=== PATIENT | female | born 1955 | race Caucasian/White ===

== ENCOUNTER → 2016-05-08 | Outpatient (CLI) | payer OTHER ==
--- NOTE | 2016-05-08 23:25 | CONS ---
DATE OF CONSULTATION: 05/08/2016 REASON FOR CONSULTATION: Sleep apnea. Nela is 60. 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 This raises a suspicion for obstructive sleep apnea. She snores loudly. She wakes up with a dry mouth and she occasionally grinds her teeth. She goes to bed around 9 p.m., wakes up at 3 a.m. in the morning. She has to be at work at 4 a.m., as the patient works at [employer], and her work schedule is between 4 a.m. and 9 a.m. in the morning. She naps from 11 a.m. until 1 p.m. after she gets home. On weekends she sleeps between midnight and 7 to 8 a.m. in the morning. She is feeling a bit fatigued and tired and sleepy, and her [place] score is 9. No other complaints such as restlessness in the lower extremities, sleepwalking or sleeptalking. No anxiety or depression. PAST MEDICAL HISTORY: 1. Atrial fibrillation, status post successful ablation. 2. Obesity. 3. Bronchial asthma. 4. Hyperlipidemia. 5. Hypertension. 6. Fibromyalgia. 7. Nephrolithiasis. Past surgical history includes: 1. Broken right arm surgery that was repaired surgically. 2. Appendectomy. 3. Tonsillectomy. 4. D&C. 5. Tubal ligation. 6. Three laparoscopies along with hysterectomy and oophorectomy for endometriosis. 7. Two left knee arthroscopies. 8. Three colonoscopies. 9. Sinus surgery. 10. Bunion surgery involving the right foot. 11. Arthroscopic right shoulder surgery. 12. Cardiac catheterization. 13. Lithotripsy. 14. Carpal tunnel repair in both hands. 15. Lap band that resulted in a 50-pound weight loss that was all regained. 16. Hiatal hernia. 17. Cardiac ablation through catheterization and EP studies. 18. Arthroscopic right knee surgery. 19. Cholecystectomy. 20. Total left knee replacement. 21. Manipulation of the left knee. SOCIAL HISTORY: The patient is a nonsmoker. No history of alcohol. No history of IV drugs. FAMILY HISTORY: Noncontributory. Negative for obstructive sleep apnea, although other conditions such as hypertension and heart problems run in the family in addition to stroke and fibromyalgia. REVIEW OF SYSTEMS: Twelve-point review of systems was done. Positive findings were all mentioned above in the history of present illness. HER CURRENT VITALS: Her blood pressure is 148/70, pulse 58, respirations 16, temperature 98.0. Saturation 98% on room air. Weight is 206. Height is 61 inches. Neck size 14-1/2 inches. BMI is 38.9 and [place] score is 9. GENERAL APPEARANCE: Calm, comfortable. HEENT: Short neck. Crowding of posterior pharynx. No goiter or neck masses. LUNGS: Diminished; otherwise clear. HEART: Sounds are regular rate and rhythm. Normal S1, S2. No S3. No S4. No murmurs. ABDOMEN: Soft, nontender. No organomegaly. EXTREMITIES: No edema. No cyanosis or clubbing. IMPRESSION: 1. Nocturnal arrhythmias, currently under investigation. Rule out underlying obstructive sleep apnea. 2. Snoring. 3. Obesity with a body mass index of 38.9. 4. Hypersomnia with an [place] score of 9. 5. Atrial fibrillation, status post successful ablation. 6. Bronchial asthma. 7. Hyperlipidemia. 8. Hypertension. 9. Fibromyalgia. 10. Nephrolithiasis. PLAN: 1. Encourage weight loss. 2. Sleep in a sidewise body position. 3. Implement good sleep hygiene measures. 4. Proceed with a screening polysomnogram.
== END | disposition home or self-care (01) ==
LOC: SLEEP 14:15
PROVIDERS: ATTEND Internal Medicine Critical Care Medicine
DX: G47.33 Obstructive sleep apnea (adult) (pediatric) (principal); G47.10 Hypersomnia, unspecified; I49.9 Cardiac arrhythmia, unspecified; E66.9 Obesity, unspecified; Z68.38 Body mass index [BMI] 38.0-38.9, adult; I48.91 Unspecified atrial fibrillation; J45.909 Unspecified asthma, uncomplicated; E78.5 Hyperlipidemia, unspecified; I10 Essential (primary) hypertension; M79.7 Fibromyalgia; N20.0 Calculus of kidney; Z98.890 Other specified postprocedural states
CPT/HCPCS: 99211

== ENCOUNTER → 2016-08-07 | Outpatient (CLI) | payer OTHER ==
--- NOTE | 2016-08-08 09:39 | PN ---
Nela is coming in to discuss the results of the sleep study. The patient was referred to me for arrhythmias and there was suspicion for underlying sleep breathing disorder. She has some mild hypersomnia and sleepiness with an [place] score of 9. The sleep study was completed on 06/11/2016 and the results were essentially negative for sleep apnea. The patient has primary snoring without any significant obstructive apneas, or hypopneas, nor there was any significant nocturnal oxygen desaturation. The patient is not having any issues with sleep quality right now. Her cardiac rhythm is sinus. Note that she has undergone lap band back in 2009 and since then she last weight; however, she is gradually gaining it back and currently she us up to 213 pounds. Temperature 98.0, pulse 60, respiratory rate 16, height is 5, 1, weight is 213. BMI is 40, saturation 99% on room air. GENERAL APPEARANCE: Calm, comfortable. HEENT: Short neck, crowding of posterior pharynx. There is no goiter, neck masses. LUNGS: Clear to auscultation. HEART: Sounds are regular rate and rhythm. Normal S1, S2. No S3. No S4. No murmurs. ABDOMEN: Soft, nontender. No organomegaly. EXTREMITIES: No edema. No cyanosis or clubbing. IMPRESSION: 1. Primary snoring. 2. No evidence for sleep breathing disorder. 3. Obesity with a previous lap band. 4. Atrial fibrillation, status post ablation. Current rhythm is sinus. 5. Hyperlipidemia. 6. Hypertension. 7. Fibromyalgia. PLAN: 1. Encourage weight loss. 2. She will go back to her primary care physician and operations executive. No evidence of any sleep breathing disorder, no need to come back to the [facility] at this point.
== END ==
LOC: SLEEP 14:31
PROVIDERS: ATTEND Internal Medicine Critical Care Medicine
DX: R06.83 Snoring (principal); I48.91 Unspecified atrial fibrillation; E78.5 Hyperlipidemia, unspecified; I10 Essential (primary) hypertension; M79.7 Fibromyalgia

== ENCOUNTER → 2017-12-13 | Day surgery (SDC) | payer OTHER ==
[2017-12-11 14:48] VITALS: BMI 37.0
[~2017-12-13] MED LIST: GLUCAGON 1 MG/ML VIAL ONE; GLYCOPYRROLATE 0.2 MG/ML 2 ML VIAL ONE; LACTATED RINGERS 1,000 ML IV SCH; LIDOCAINE 1% 20 ML VIAL (10MG/ML) FOR IV START INTRADERMA PRN; LIDOCAINE 1% INJ 10MG/ML (20 ML MDV) ONE; PROPOFOL 10 MG/ML 20 ML VIAL IV ONE
[2017-12-13 09:48] VITALS: RESP 16; TEMP 98.3
--- NOTE | 2017-12-13 11:11 | P.GSHP ---
History of Present Illness H&P Date: 12/13/17 Chief Complaint: GI bleed This a 62-year-old female who presents today for colonoscopy. Patient was found to be fecal occult blood positive. She denies any obvious rectal bleeding. Past Medical History Past Medical History: Asthma, Fibromyalgia, GERD/Reflux, Hyperlipidemia, Osteoarthritis (OA), Thyroid Disorder Additional Past Medical History / Comment(s): hx migraines, hx heart murmur and "rapid heart rate", History of Any Multi-Drug Resistant Organisms: None Reported Past Surgical History: Appendectomy, Bariatric Surgery, Cardiac Ablation, Cholecystectomy, Heart Catheterization, Hysterectomy, Joint Replacement, Orthopedic Surgery, Tonsillectomy, Tubal Ligation Additional Past Surgical History / Comment(s): lithotripsy, lap band with hiatal hernia repair, hsemar foot surgery, rt shoulder surgery, shemar knee arthroscopy, D&C, shemar carpal tunnel, fx rt arm, oophorectomy, sinus surgery, laparoscopy x 3, left knee replaced 2014 Past Anesthesia/Blood Transfusion Reactions: Family History of Problems w/ Anesthesia, Postoperative Nausea & Vomiting (PONV) Additional Past Anesthesia/Blood Transfusion Reaction / Comment(s): happened once. mother- nausea Smoking Status: Former smoker - Past Family History Mother Family Medical History: Cancer, CVA/TIA Additional Family Medical History / Comment(s): CVA x 5 Medications and Allergies Home Medications Medication Instructions Recorded Confirmed Type ALPRAZolam [Xanax] 0.25 mg PO HS 05/28/14 12/13/17 History Atenolol [Tenormin] 50 mg PO HS 05/28/14 12/13/17 History Baclofen 5 mg PO HS 05/28/14 12/13/17 History Fluticasone/Salmeterol [Advair 1 inhalation PO DAILY PRN 05/28/14 12/13/17 History 250-50 Diskus] Ibuprofen [Motrin] 800 mg PO HS 05/28/14 12/13/17 History Melatonin 10 mg PO HS 05/28/14 12/13/17 History Atorvastatin [Lipitor] 10 mg PO DAILY 05/04/15 12/13/17 History Omeprazole [PriLOSEC] 20 mg PO HS 05/04/15 12/13/17 History Albuterol Inhaler [Ventolin Hfa 1 - 2 puff INHALATION RT-Q6H PRN 12/11/17 History Inhaler] Cetirizine HCl [Zyrtec] 5 mg PO HS 12/11/17 12/13/17 History Cholecalciferol [Vitamin D3] 5,000 unit PO DAILY 12/11/17 12/13/17 History DULoxetine HCL [Cymbalta] 60 mg PO HS 12/11/17 12/13/17 History Ferrous Sulfate [Feosol] 325 mg PO Q48H 12/11/17 12/13/17 History Levothyroxine Sodium [Levo-T] 50 mcg PO DAILY 12/11/17 12/13/17 History Allergies Allergy/AdvReac Type Severity Reaction Status Date / Time acetaminophen [From Vicodin] Allergy Nausea Verified 12/13/17 09:48 hydrocodone bitartrate Allergy Nausea Verified 12/13/17 09:48 [From Vicodin] Penicillins Allergy Rash/Hives Verified 12/13/17 09:48 metal Allergy Rash/Hives Uncoded 12/13/17 09:48 Surgical - Exam Vital Signs Temp Pulse Resp BP Pulse Ox 98.3 F 58 L 16 153/83 98 12/13/17 09:38 12/13/17 09:38 12/13/17 09:38 12/13/17 09:38 12/13/17 09:38 - General well developed, no distress - Eyes PERRL - ENT normal pinna - Neck no masses - Respiratory normal expansion - Cardiovascular Rhythm: regular - Abdomen Abdomen: soft, non tender Assessment and Plan Assessment: GI bleed. We'll perform colonoscopy.
--- NOTE | 2017-12-13 11:25 | P.OP ---
Date of Procedure: 12/13/17 Preoperative Diagnosis: GI bleed Postoperative Diagnosis: Mild diverticulosis Procedure(s) Performed: Colonoscopy Anesthesia: MAC Surgeon: Vamsi Jaimes Pathology: none sent Condition: stable Disposition: PACU Description of Procedure: The patient's placed on the endoscopy table in the lateral position area she received IV sedation. Digital rectal exam was performed which revealed no abnormalities. The flexible colonoscope was then placed patient anus passed throughout the entire colon. The ileocecal valve was visualized. The cecum, ascending and transverse colon appeared normal. In the descending; was mild diverticular changes. Scope was then brought back the rectum and this appeared normal. Scope was withdrawn for patient.
[2017-12-13 11:53] VITALS: BP 101/68; PULSE 72
== END | disposition home or self-care (01) ==
LOC: ORWHC2ENDO 09:13
PROVIDERS: ATTEND Surgery
DX: K57.30 Diverticulosis of large intestine without perforation or abscess without bleeding (principal); K92.2 Gastrointestinal hemorrhage, unspecified; M19.90 Unspecified osteoarthritis, unspecified site; M79.7 Fibromyalgia; K21.9 Gastro-esophageal reflux disease without esophagitis; J45.909 Unspecified asthma, uncomplicated; E78.5 Hyperlipidemia, unspecified; E07.9 Disorder of thyroid, unspecified; Z82.3 Family history of stroke; Z87.891 Personal history of nicotine dependence; Z88.0 Allergy status to penicillin; Z88.5 Allergy status to narcotic agent; Z98.84 Bariatric surgery status; Z90.49 Acquired absence of other specified parts of digestive tract; Z98.61 Coronary angioplasty status; Z96.652 Presence of left artificial knee joint; Z91.048 Other nonmedicinal substance allergy status; Z79.1 Long term (current) use of non-steroidal anti-inflammatories (NSAID); Z79.899 Other long term (current) drug therapy; Z79.51 Long term (current) use of inhaled steroids; Z79.890 Hormone replacement therapy
CPT/HCPCS: 45378; J1610; J2001; J2704

== ENCOUNTER → 2019-12-18 | Outpatient (CLI) | payer BC, OTHER | END | disposition home or self-care (01) | LOC: LABWHC1 13:45 | PROVIDERS: ATTEND Internal Medicine Geriatric Medicine | DX: Z20.828 Contact with and (suspected) exposure to other viral communicable diseases (principal) | CPT/HCPCS: U0003; C9803 ==

== ENCOUNTER → 2020-01-25 | Outpatient (CLI) | payer BC ==
[2020-01-25 15:15] VITALS: BP 142/85; PULSE 78; TEMP 98.2; BMI 41.3
--- NOTE | 2020-02-04 12:00 | P.HPBAR ---
Bariatric H&P - History & Physicial H&P Date: 01/25/20 History & Physicial: Visit/CC: lap band follow up Patient initial contact: Initial weight: 101.264 kg Initial weight in pounds: 223.25 Height: 5 ft Initial BMI: 43.6 Last weight: Current weight: 96.162 kg Current weight in pounds: 212.00 Current BMI: 41.3 [place] body weight (based on NIH guidelines): 45.359 kg Excess body weight loss: 9.1% The patient is a 64 year-old F who presents for Bariatric Assessment. Patient resents today for lap band follow up. She's had some complaints of abdominal pain. She relates to convert to sleeve gastrectomy. She is morbidly obese. Her BMI is 41 3 patient's had issues with dysphagia and GERD related to her LAP- BAND. Past Medical History Past Medical History: Asthma, Fibromyalgia, GERD/Reflux, Hyperlipidemia, Osteoarthritis (OA), Thyroid Disorder Additional Past Medical History / Comment(s): hx migraines, hx heart murmur and "rapid heart rate", History of Any Multi-Drug Resistant Organisms: None Reported Past Surgical History: Appendectomy, Bariatric Surgery, Cardiac Ablation, Cholecystectomy, Heart Catheterization, Hysterectomy, Joint Replacement, Orthopedic Surgery, Tonsillectomy, Tubal Ligation Additional Past Surgical History / Comment(s): lithotripsy, lap band with hiatal hernia repair, shemar foot surgery, rt shoulder surgery, shemar knee arthroscopy, D&C, shemar carpal tunnel, fx rt arm, oophorectomy, sinus surgery,laparoscopy x 3, left knee replaced 2014 Past Anesthesia/Blood Transfusion Reactions: Family History of Problems w/ Anesthesia, Postoperative Nausea & Vomiting (PONV) Additional Past Anesthesia/Blood Transfusion Reaction / Comm: happened once. mother- nausea Smoking Status: Never smoker - Past Family History Mother Family Medical History: Cancer, CVA/TIA Additional Family Medical History / Comment(s): CVA x 5 Surgical - Exam Vital Signs Temp Pulse BP 98.2 F 78 142/85 01/25/20 15:09 01/25/20 15:09 01/25/20 15:09 - General well developed, well nourished, no distress - Eyes PERRL - ENT normal pinna, normal nares - Neck no masses - Respiratory normal expansion - Cardiovascular Rhythm: regular - Abdomen Abdomen: soft, non tender Bariatric Assessment & Plan Plan: Dysphagia and GERD related to LAP-BAND. Patient will attempt to undergo insu marcela authorization to conversion to sleeve gastrectomy. He went over the risks and benefits of procedure including injury to the stomach liver spleen and issues gastric staple line disruption bleeding or scarring. Bariatric Checklist Checklist: Plan: Checklist: EGD: 1. Hiatal hernia: 2. H. Pylori: HgbA1c: Vitamin D: Smoking: Former smoker Primary care physician referral: Psychiatry clearance: Cardiology clearance: Sleep study: Diet journal: VTE risk score: VTE risk level: Rehab needs at discharge:
== END | disposition home or self-care (01) ==
LOC: BARWHC3 13:15
PROVIDERS: ATTEND Surgery
DX: Z46.51 Encounter for fitting and adjustment of gastric lap band (principal); E66.01 Morbid (severe) obesity due to excess calories; R13.10 Dysphagia, unspecified; K21.9 Gastro-esophageal reflux disease without esophagitis; Z87.891 Personal history of nicotine dependence; Z90.710 Acquired absence of both cervix and uterus; Z98.890 Other specified postprocedural states; Z90.49 Acquired absence of other specified parts of digestive tract; Z68.41 Body mass index [BMI] 40.0-44.9, adult; Z98.84 Bariatric surgery status
CPT/HCPCS: 99211

== ENCOUNTER 2020-03-24 10:29 | Day surgery (SDC) | payer BC ==
[2020-03-22 15:55] VITALS: BMI 36.8
[~2020-03-24 10:29] MED LIST changes: -GLUCAGON 1 MG/ML VIAL ONE; -GLYCOPYRROLATE 0.2 MG/ML 2 ML VIAL ONE; +LIDOCAINE 1% (10MG/ML) FOR IV START INTRADERMA PRN; -LIDOCAINE 1% 20 ML VIAL (10MG/ML) FOR IV START INTRADERMA PRN; -LIDOCAINE 1% INJ 10MG/ML (20 ML MDV) ONE; -PROPOFOL 10 MG/ML 20 ML VIAL IV ONE
[2020-03-24 11:33] VITALS: TEMP 97.1
[2020-03-24] MEDS ORDERED: fentaNYL (PF) 50 MCG/ML 2 ML AMP ONE (11:51)
[2020-03-24] MEDS ORDERED: MIDAZOLAM 2 MG/2 ML VIAL ONE (11:51)
[2020-03-24] MEDS ORDERED: PROPOFOL 10 MG/ML 20 ML VIAL IV ONE (11:51)
--- NOTE | 2020-03-24 11:56 | P.GSHP ---
History of Present Illness H&P Date: 03/24/20 Chief Complaint: GERD, history of LAP-BAND surgery 64-year-old female presents today for EGD. She's issues with GERD. She's had previous LAP-BAND surgery. She's had trouble with dysphagia and reflux. Past Medical History Past Medical History: Asthma, Fibromyalgia, GERD/Reflux, Hyperlipidemia, Osteoarthritis (OA), Thyroid Disorder Additional Past Medical History / Comment(s): hx migraines, hx heart murmur and "rapid heart rate", Degenerative Disc Disease History of Any Multi-Drug Resistant Organisms: None Reported Past Surgical History: Appendectomy, Bariatric Surgery, Cardiac Ablation, Cholecystectomy, Heart Catheterization, Hysterectomy, Joint Replacement, Orthopedic Surgery, Tonsillectomy, Tubal Ligation Additional Past Surgical History / Comment(s): lithotripsy, lap band with hiatal hernia repair, shemar foot surgery, shemar shoulder surgery, shemar knee arthroscopy, D&C, shemar carpal tunnel, fx rt arm/humurus repair, oophorectomy, sinus surgery,laparoscopy x 3, left knee replaced Past Anesthesia/Blood Transfusion Reactions: Family History of Problems w/ Anesthesia, Postoperative Nausea & Vomiting (PONV) Additional Past Anesthesia/Blood Transfusion Reaction / Comment(s): mother- nausea Past Psychological History: Anxiety Smoking Status: Former smoker Past Alcohol Use History: Rare Additional Past Alcohol Use History / Comment(s): quit smoking 1999, smoked off & on since age of 13, always <ppd Past Drug Use History: None Reported - Past Family History Mother Family Medical History: Cancer, CVA/TIA Additional Family Medical History / Comment(s): CVA x 5 Medications and Allergies Home Medications Medication Instructions Recorded Confirmed Type ALPRAZolam [Xanax] 0.25 mg PO HS 05/28/14 03/22/20 History Atenolol [Tenormin] 75 mg PO HS 05/28/14 03/22/20 History Baclofen 10 mg PO QAM 05/28/14 03/22/20 History Fluticasone/Salmeterol [Advair 1 inhalation PO DAILY PRN 05/28/14 03/22/20 History 250-50 Diskus] Ibuprofen [Motrin] 800 mg PO HS 05/28/14 03/22/20 History Melatonin 10 mg PO HS 05/28/14 03/22/20 History Atorvastatin [Lipitor] 10 mg PO DAILY 05/04/15 03/22/20 History Albuterol Inhaler (Mhu) [Ventolin 1 - 2 puff INHALATION RT-Q6H PRN 12/11/17 03/22/20 History Hfa Inhaler] Cetirizine HCl [Zyrtec] 5 mg PO HS 12/11/17 03/22/20 History Cholecalciferol [Vitamin D3] 5,000 unit PO DAILY 12/11/17 03/22/20 History DULoxetine HCL [Cymbalta] 60 mg PO HS 12/11/17 03/22/20 History Levothyroxine Sodium [Levo-T] 50 mcg PO QAM 12/11/17 03/22/20 History Baclofen [Lioresal] 20 mg PO HS 03/22/20 03/22/20 History Pyridoxine [Vitamin B-6] 50 mg PO DAILY 03/22/20 03/22/20 History Allergies Allergy/AdvReac Type Severity Reaction Status Date / Time hydrocodone bitartrate Allergy Nausea Verified 03/22/20 15:45 [From Vicodin] Penicillins Allergy Anaphylaxis Verified 03/22/20 15:45 metal Allergy Rash/Hives Uncoded 03/22/20 15:45 Surgical - Exam Vital Signs Temp Pulse Resp BP Pulse Ox 97.1 F L 66 20 143/79 95 03/24/20 11:15 03/24/20 11:15 03/24/20 11:15 03/24/20 11:15 03/24/20 11:15 - General well developed, well nourished, no distress - Eyes PERRL - ENT normal pinna - Neck no masses - Respiratory normal expansion - Cardiovascular Rhythm: regular - Abdomen Abdomen: soft, non tender Assessment and Plan Assessment: GERD, dysphagia. We'll perform EGD.
--- NOTE | 2020-03-24 12:02 | P.OP ---
Date of Procedure: 03/24/20 Preoperative Diagnosis: GERD Postoperative Diagnosis: Antral gastritis LAP-BAND without evidence of erosion or inflammation Esophagitis Procedure(s) Performed: EGD Anesthesia: MAC Surgeon: Vamsi Jaimes Pathology: other (Antrum, esophagus) Condition: stable Disposition: PACU Description of Procedure: The patient's placed on the endoscopy table in the lateral position. She received IV sedation. The gastro-/oropharynx passed in the esophagus and stomach. The scope was then placed through the pylorus. The first and second portion of the duodenum appeared normal. Scope summer back and the antrum this appeared mildly inflamed. A biopsies performed. Scope was then retroflexed and the remainder of the stomach appeared normal. The patient a previous placed LAP-BAND which was without evidence insufflation erosion. The GE junction was at 40 cm.. The distal esophagus appeared minimally inflamed. A biopsies performed. The proximal esophagus appeared normal. Scope was withdrawn for patient.
[2020-03-24 12:15] VITALS: RESP 16
[2020-03-24 12:34] VITALS: BP 125/72; PULSE 61
== END 2020-03-24 13:14 | disposition home or self-care (01) ==
LOC: ORWHC2ENDO 10:29
PROVIDERS: ATTEND Surgery
DX: K29.50 Unspecified chronic gastritis without bleeding (principal); B96.81 Helicobacter pylori [H. pylori] as the cause of diseases classified elsewhere; K21.00 Gastro-esophageal reflux disease with esophagitis, without bleeding; E78.5 Hyperlipidemia, unspecified; J45.909 Unspecified asthma, uncomplicated; E07.9 Disorder of thyroid, unspecified; M79.7 Fibromyalgia; M19.90 Unspecified osteoarthritis, unspecified site; G43.909 Migraine, unspecified, not intractable, without status migrainosus; F41.9 Anxiety disorder, unspecified; Z88.0 Allergy status to penicillin; Z88.5 Allergy status to narcotic agent; Z79.1 Long term (current) use of non-steroidal anti-inflammatories (NSAID); Z79.51 Long term (current) use of inhaled steroids; Z79.890 Hormone replacement therapy; Z79.899 Other long term (current) drug therapy; Z87.891 Personal history of nicotine dependence; Z98.84 Bariatric surgery status; Z90.710 Acquired absence of both cervix and uterus; Z98.51 Tubal ligation status; Z98.890 Other specified postprocedural states; Z90.722 Acquired absence of ovaries, bilateral; Z96.652 Presence of left artificial knee joint; Z90.49 Acquired absence of other specified parts of digestive tract; Z82.49 Family history of ischemic heart disease and other diseases of the circulatory system; Z80.9 Family history of malignant neoplasm, unspecified
CPT/HCPCS: 88305; 88342; 43239; J2250; J3010; J2704

== ENCOUNTER → 2020-04-04 | Outpatient (CLI) | payer BC, MEDICARE ==
[2020-04-04 13:28] VITALS: BP 131/84; PULSE 82; RESP 18; TEMP 97.7; BMI 42.3
--- NOTE | 2020-04-04 14:47 | P.HPBAR ---
Bariatric H&P - History & Physicial H&P Date: 04/04/20 History & Physicial: Visit/CC: follow up Patient initial contact: Initial weight: 101.264 kg Initial weight in pounds: 223.25 Height: 5 ft 0.5 in Initial BMI: 42.8 Last weight: Current weight: 99.79 kg Current weight in pounds: 220.00 Current BMI: 42.3 [place] body weight (based on NIH guidelines): 46.493 kg Excess body weight loss: 2.6% The patient is a 64 year-old F who presents for Bariatric Assessment. Patient presents today for lab band follow up. She's had trouble with dysphagia in her band band was adjusted. She wishes to convert to sleeve gastrectomy. She's had issues with GERD. Past Medical History Past Medical History: Asthma, Fibromyalgia, GERD/Reflux, Hyperlipidemia, Osteoarthritis (OA), Thyroid Disorder Additional Past Medical History / Comment(s): hx migraines, hx heart murmur and "rapid heart rate", Degenerative Disc Disease History of Any Multi-Drug Resistant Organisms: None Reported Past Surgical History: Appendectomy, Bariatric Surgery, Cardiac Ablation, Cholecystectomy, Heart Catheterization, Hysterectomy, Joint Replacement, Orthopedic Surgery, Tonsillectomy, Tubal Ligation Additional Past Surgical History / Comment(s): lithotripsy, lap band with hiatal hernia repair, shemar foot surgery, shemar shoulder surgery, shemar knee arthroscopy, D&C, shemar carpal tunnel, fx rt arm/humurus repair, oophorectomy, sinus surgery,laparoscopy x 3, left knee replaced Past Anesthesia/Blood Transfusion Reactions: Family History of Problems w/ An esthesia, Postoperative Nausea & Vomiting (PONV) Additional Past Anesthesia/Blood Transfusion Reaction / Comm: mother- nausea Past Psychological History: Anxiety Smoking Status: Former smoker Past Alcohol Use History: Rare Additional Past Alcohol Use History / Comment(s): quit smoking 1999, smoked off & on since age of 13, always <ppd Past Drug Use History: None Reported - Past Family History Mother Family Medical History: Cancer, CVA/TIA Additional Family Medical History / Comment(s): CVA x 5 Surgical - Exam Vital Signs Temp Pulse Resp BP 97.7 F 82 18 131/84 04/04/20 13:15 04/04/20 13:15 04/04/20 13:15 04/04/20 13:15 - General well developed, well nourished, no distress - Eyes PERRL - ENT normal pinna - Neck no masses - Respiratory normal expansion - Cardiovascular Rhythm: regular - Abdomen Abdomen: soft, non tender Bariatric Assessment & Plan Plan: Dysphagia, GERD related to LAP-BAND. Patient will be converted to sleeve gastrectomy 1 insurance authorization is complete. Bariatric Checklist Checklist: Plan: Checklist: EGD: 1. Hiatal hernia: 2. H. Pylori: HgbA1c: Vitamin D: Smoking: Former smoker Primary care physician referral: Dr. Marcus Psychiatry clearance: Cardiology clearance: Sleep study: Diet journal: VTE risk score: VTE risk level: Rehab needs at discharge:
== END | disposition home or self-care (01) ==
LOC: BARWHC3 13:01
PROVIDERS: ATTEND Surgery
DX: Z46.51 Encounter for fitting and adjustment of gastric lap band (principal); K21.9 Gastro-esophageal reflux disease without esophagitis; R13.10 Dysphagia, unspecified; Z98.84 Bariatric surgery status; Z90.49 Acquired absence of other specified parts of digestive tract; Z90.710 Acquired absence of both cervix and uterus; Z98.890 Other specified postprocedural states
CPT/HCPCS: 99211

== ENCOUNTER → 2020-05-23 | Outpatient (CLI) | payer MEDICARE ==
[2020-05-23 15:23] VITALS: BP 137/84; PULSE 67; TEMP 97.9; BMI 43.2
--- NOTE | 2020-05-23 16:22 | P.HPBAR ---
Bariatric H&P - History & Physicial H&P Date: 05/23/20 History & Physicial: Visit/CC: presurgical visit Patient initial contact: Initial weight: 101.264 kg Initial weight in pounds: 223.25 Height: 5 ft 0.5 in Initial BMI: 42.8 Last weight: Current weight: 102.058 kg Current weight in pounds: 225.00 Current BMI: 43.2 [place] body weight (based on NIH guidelines): 46.493 kg Excess body weight loss: The patient is a 64 year-old F who presents for Bariatric Assessment. Patient presents today for presurgical visit. She is scheduled for sleeve gastrectomy June 06. She will have her band removed at time. She's had chronic issues with GERD and dysphagia. Past Medical History Past Medical History: Asthma, Fibromyalgia, GERD/Reflux, Hyperlipidemia, Osteoarthritis (OA), Thyroid Disorder Additional Past Medical History / Comment(s): hx migraines, hx heart murmur and "rapid heart rate", Degenerative Disc Disease History of Any Multi-Drug Resistant Organisms: None Reported Past Surgical History: Appendectomy, Bariatric Surgery, Cardiac Ablation, Cholecystectomy, Heart Catheterization, Hysterectomy, Joint Replacement, Orthopedic Surgery, Tonsillectomy, Tubal Ligation Additional Past Surgical History / Comment(s): lithotripsy, lap band with hiatal hernia repair, shemar foot surgery, shemar shoulder surgery, shemar knee arthroscopy, D&C, shemar carpal tunnel, fx rt arm/humurus repair, oophorectomy, sinus surgery,laparoscopy x 3, left knee replaced Past Anesthesia/Blood Transfusion Reactions: Family History of Problems w/ Anesthesia, Postoperative Nausea & Vomiting (PONV) Additional Past Anesthesia/Blood Transfusion Reaction / Comm: mother- nausea Smoking Status: Former smoker - Past Family History Mother Family Medical History: Cancer, CVA/TIA Additional Family Medical History / Comment(s): CVA x 5 Surgical - Exam Vital Signs Temp Pulse BP 97.9 F 67 137/84 05/23/20 15:20 05/23/20 15:20 05/23/20 15:20 - General well developed, well nourished, no distress - Eyes PERRL - ENT normal pinna - Neck no masses - Respiratory normal expansion - Cardiovascular Rhythm: regular - Abdomen Abdomen: soft, non tender Bariatric Assessment & Plan Plan: Status post LAP-BAND procedure with subsequent GERD and dysphagia. Patient will undergo conversion sleeve gastrectomy. Bariatric Checklist Checklist: Plan: Checklist: EGD: 1. Hiatal hernia: 2. H. Pylori: HgbA1c: Vitamin D: Smoking: Former smoker Primary care physician referral: Dr. Marcus Psychiatry clearance: Cardiology clearance: Sleep study: Diet journal: VTE risk score: VTE risk level: Rehab needs at discharge:
== END ==
LOC: BARWHC3 13:33
PROVIDERS: ATTEND Surgery
DX: Z01.818 Encounter for other preprocedural examination (principal); J45.909 Unspecified asthma, uncomplicated; E78.5 Hyperlipidemia, unspecified; M19.90 Unspecified osteoarthritis, unspecified site; K21.9 Gastro-esophageal reflux disease without esophagitis; R13.10 Dysphagia, unspecified; Z98.84 Bariatric surgery status; Z87.891 Personal history of nicotine dependence
CPT/HCPCS: 99211

== ENCOUNTER → 2020-05-23 | Outpatient (CLI) | payer MEDICARE | END | disposition home or self-care (01) | LOC: LABPAT 14:34 | PROVIDERS: ATTEND Surgery | DX: Z01.818 Encounter for other preprocedural examination (principal) | CPT/HCPCS: 93005 ==

== ENCOUNTER 2020-06-06 07:40 | Inpatient (IN) | payer MEDICARE ==
[~2020-06-06 07:40] MED LIST changes: +CLINDAMYCIN 900 MG in DEXTROSE 5% IN WATER 50 ML IVPB PRN; +DEXAMETHASONE SOD PHOSPHATE 4 MG/ML 1 ML VIAL IV ONE; +ENOXAPARIN 40 MG/0.4 ML SYRINGE SQ PRN; +GENTAMICIN 340 MG in SODIUM CHLORIDE 0.9% 100 ML IVPB PRN; -LACTATED RINGERS 1,000 ML IV SCH; -LIDOCAINE 1% (10MG/ML) FOR IV START INTRADERMA PRN; +ONDANSETRON 4 MG/2 ML VIAL IVP ONE
[2020-06-06] MEDS: LACTATED RINGERS 1,000 ML IV SCH (09:00)
[2020-06-06] MEDS ORDERED: LIDOCAINE 1% INJ 10MG/ML (20 ML MDV) ONE ×2 (09:01→10:50)
[2020-06-06 09:20] LABS: Basophils % (A) 1 %; Eosinophils # (A) 0.1 k/uL (0-0.7); Eosinophils % (A) 2 %; HCT 41.6 % (34.0-46.0); HGB 14.2 gm/dL (11.4-16.0); Lymphocytes % (A) 25 %; MCH 29.3 pg (25.0-35.0); MCHC 34.1 g/dL (31.0-37.0); MCV 85.7 fL (80.0-100.0); Mean Platelet Volume 7.4; Monocytes # (A) 0.6 k/uL (0-1.0); Monocytes % (A) 8 %; Neutrophils # (A) 4.9 k/uL (1.3-7.7); Neutrophils % (A) 63 %; Platelet Count 339 k/uL (150-450); RBC 4.86 m/uL (3.80-5.40); RDW 13.8 % (11.5-15.5); WBC 7.8 k/uL (3.8-10.6)
[2020-06-06] MEDS ORDERED: MIDAZOLAM 2 MG/2 ML VIAL IVP ONE (09:29)
--- NOTE | 2020-06-06 10:17 | P.GSHP ---
History of Present Illness H&P Date: 06/06/20 Chief Complaint: GERD, dysphagia This is a 64-year-old female who presents today for laparoscopic removal of LAP- BAND system and laparoscopic sleeve gastrectomy. She's had chronic GERD and dysphagia related to her LAP-BAND. Past Medical History Past Medical History: Asthma, Fibromyalgia, GERD/Reflux, Hyperlipidemia, Osteoarthritis (OA), Supraventricular Tachycardia (SVT), Thyroid Disorder Additional Past Medical History / Comment(s): hx migraines, hx heart murmur and "rapid heart rate", Degenerative Disc Disease, back pain, lap band History of Any Multi-Drug Resistant Organisms: None Reported Past Surgical History: Appendectomy, Bariatric Surgery, Cardiac Ablation, Cholecystectomy, Heart Catheterization, Hysterectomy, Joint Replacement, Orthopedic Surgery, Tonsillectomy, Tubal Ligation Additional Past Surgical History / Comment(s): lithotripsy, lap band with hiatal hernia repair, shemar foot surgery, shemar shoulder surgery, shemar knee arthroscopy, D&C, shemar carpal tunnel, fx rt arm/humurus repair, oophorectomy, sinus surgery, laparoscopy x 3, left knee replaced Past Anesthesia/Blood Transfusion Reactions: Family History of Problems w/ Anesthesia, Postoperative Nausea & Vomiting (PONV) Additional Past Anesthesia/Blood Transfusion Reaction / Comment(s): mother- nausea Smoking Status: Former smoker - Past Family History Mother Family Medical History: Cancer, CVA/TIA Additional Family Medical History / Comment(s): CVA x 5 Medications and Allergies Home Medications Medication Instructions Recorded Confirmed Type ALPRAZolam [Xanax] 0.25 mg PO HS PRN 05/28/14 06/06/20 History Atenolol [Tenormin] 75 mg PO HS 05/28/14 06/06/20 History Fluticasone/Salmeterol [Advair 1 inhalation PO DAILY PRN 05/28/14 06/06/20 Hi story 250-50 Diskus] Ibuprofen [Motrin] 800 mg PO HS 05/28/14 06/06/20 History Atorvastatin [Lipitor] 10 mg PO DAILY 05/04/15 06/06/20 History Albuterol Inhaler (Mhu) [Ventolin 1 - 2 puff INHALATION RT-Q6H PRN 12/11/17 06/06/20 History Hfa Inhaler] Cetirizine HCl [Zyrtec] 5 mg PO HS 10/10/18 04/05/21 History Cholecalciferol [Vitamin D3] 5,000 unit PO DAILY 12/11/17 06/06/20 History DULoxetine HCL [Cymbalta] 60 mg PO HS 12/11/17 06/06/20 History Levothyroxine Sodium [Levo-T] 75 mcg PO QAM 12/11/17 06/06/20 History Baclofen [Lioresal] 10 mg PO TID 03/22/20 06/06/20 History Pyridoxine [Vitamin B-6] 50 mg PO DAILY 03/22/20 06/06/20 History Acetaminophen-Codeine 300-30mg 1 tab PO Q6H 05/30/20 06/06/20 History [Tylenol w/codeine #3] Cyanocobalamin (Vitamin B-12) 1,000 mcg PO DAILY 05/30/20 06/06/20 History [Vitamin B-12] Fenofibrate Nanocrystallized 145 mg PO DAILY 05/30/20 06/06/20 History [Fenofibrate] Loperamide HCl [Imodium A-D] 2 mg PO DAILY PRN 05/30/20 06/06/20 History Melatonin 10 mg PO HS 05/30/20 06/06/20 History Omeprazole 20 mg PO DAILY 05/30/20 06/06/20 History Ondansetron HCl [Zofran] 4 mg PO Q8H PRN 05/30/20 06/06/20 History Temazepam [Restoril] 15 mg PO HS 06/03/20 06/06/20 History Allergies Allergy/AdvReac Type Severity Reaction Status Date / Time hydrocodone bitartrate Allergy Nausea Verified 06/06/20 09:07 [From Vicodin] Penicillins Allergy Anaphylaxis Verified 06/06/20 09:07 metal Allergy Rash/Hives Uncoded 06/06/20 09:07 Surgical - Exam Vital Signs Temp Pulse Resp BP Pulse Ox 98.1 F 57 L 17 133/74 98 06/06/20 09:00 06/06/20 09:00 06/06/20 09:00 06/06/20 09:00 06/06/20 09:00 - General well developed, well nourished, no distress - Eyes PERRL - ENT normal pinna - Neck no masses - Respiratory normal expansion - Cardiovascular Rhythm: regular - Abdomen Abdomen: soft, non tender Results - Labs 06/06/20 09:01 Assessment and Plan Assessment: GERD, dysphagia. We'll perform we'll LAP-BAND system and conversion to sleeve gastrectomy.
[2020-06-06] MEDS ORDERED: KETOROLAC 15 MG/ML 1 ML VIAL ONE (10:50)
[2020-06-06] MEDS ORDERED: PROPOFOL 10 MG/ML 20 ML VIAL IV ONE (10:50)
[2020-06-06] MEDS ORDERED: GLYCOPYRROLATE 0.2 MG/ML 2 ML VIAL ONE (10:50)
[2020-06-06] MEDS ORDERED: ROCURONIUM 10 MG/ML (5 ML VIAL) IV ONE (10:50)
[2020-06-06] MEDS ORDERED: fentaNYL (PF) 50 MCG/ML 2 ML AMP ONE (10:50)
[2020-06-06] MEDS ORDERED: KETAMINE 10 MG/ML 20 ML VIAL ONE (10:50)
[2020-06-06] MEDS ORDERED: ROPIVACAINE 5 MG/ML 30 ML VIAL ONE (10:50)
[2020-06-06] MEDS ORDERED: NEOSTIGMINE 1 MG/ML 10 ML VIAL ONE (10:50)
[2020-06-06] MEDS ORDERED: SUCCINYLCHOLINE CHLORIDE 100 MG/5 ML SYR IV ONE (10:50)
[2020-06-06] MEDS ORDERED: BUPIVACAINE (PF) 0.25% 30 ML VIAL SQ ONE (11:21)
[2020-06-06] MEDS ORDERED: HYDROmorphone 1 MG/ML 1 ML SYRINGE IVP PRN (12:20)
[2020-06-06] MEDS ORDERED: ONDANSETRON 4 MG/2 ML VIAL IVP PRN (12:20)
[2020-06-06] MEDS ORDERED: HYDROcodone/APAP 15 ML SOLUTION PO PRN (12:20)
[2020-06-06] MEDS ORDERED: HYOSCYAMINE ORAL DROPS 1.875 MG/15 ML BOTTLE PO PRN (12:20)
[2020-06-06] MEDS ORDERED: SIMETHICONE 40 MG/0.6 ML DROPS 2,000 MG/30 ML BOTTLE PO PRN (12:20)
[2020-06-06] MEDS ORDERED: diphenhydrAMINE 50 MG/ML 1 ML VIAL IVP PRN (12:20)
[2020-06-06] MEDS ORDERED: NALOXONE 0.4 MG/ML 1 ML VIAL IV PRN (12:20)
--- NOTE | 2020-06-06 12:26 | P.OP ---
Date of Procedure: 06/06/20 Preoperative Diagnosis: Dysphagia Morbid obesity, BMI 42 Postoperative Diagnosis: Dysphagia Morbid obesity, BMI 42 Procedure(s) Performed: Removal LAP-BAND system Laparoscopic sleeve gastrectomy Anesthesia: ZA Surgeon: Vamsi Jaimes Estimated Blood Loss (ml): 25 Pathology: other (Stomach) Condition: stable Disposition: PACU Description of Procedure: The patient was placed on the operating room table in the supine position. She received general anesthesia and then was placed in dorsal lithotomy position. Her abdomen was prepped and draped in sterile fashion. The skin incision sites were anesthetized 1% local Xylocaine. And then the skin was incised with an 11 blade in the left lateral position. Using a blade less trocar under direct visualization the peritoneal cavity was entered. The abdomen was insufflated and then a 5 mm laparoscope was placed into the peritoneal cavity. A 5 mm trocar was placed in the right epigastric, and right lateral position. A 15 mm trocar was placed in the supra-umbilical position and another 5 mm trocar was placed in the left lateral position. The left lateral lobe of the liver was retracted. The LAP-BAND port was then palpated and skin incision made over the port site. And then using left cautery the LAP-BAND port was dissected free to the pathology. The connecting tube was then cut. Next the anterior gastric wall plication was taken down and the LAP-BAND device was freed from and stomach. The LAP-BAND device was cut withdrawn from the stomach. It was extracted through the 15 mm port site. The stomach was visualized. The greater curvature of the stomach was then dissected using the Harmonic scissors. The dissection occurred approximately 5 cm from the pylorus to the level of the left payton. There was no hiatal hernia seen. At this point a 40-Citizen Of [place] bougie dilator was placed the oropharynx and passed into the esophagus and into the stomach by the GLASS DEPOSITION TENDER. The sleeve gastrectomy was performed by using the powered echelon stapler with a seam guard buttress material. Sequential firings of the stapler were performed. The gastric remnant was then brought out through the 15 mm trocar site. The dilator was withdrawn. And a orogastric tube was replaced into the stomach. The stomach was insufflated with 200 mL of methylene blue normal saline. There was no evidence of extravasation. The abdomen was irrigated there is no bleeding seen. The Cameron-Samara device was used to close the 15 mm trocar with 0 Vicryl. Skin was closed with interrupted 3-0 Monocryl sutures once the trochars withdrawn. Dermabond dressing was applied. Patient was sent to recovery in stable condition.
[2020-06-06] MEDS ORDERED: LACTATED RINGERS 1,000 ML IV ONE (12:35)
[2020-06-06] MEDS: HYDROmorphone 0.5 MG/0.5 ML SYRINGE IVP PRN ×3 (13:17→14:01)
[2020-06-06 13:50] LABS: Albumin 3.7 g/dL (3.5-5.0); Calcium 9.7 mg/dL (8.4-10.2); Potassium 4.4 mmol/L (3.5-5.1); Total Bilirubin 0.4 mg/dL (0.2-1.3); Total Protein 6.5 g/dL (6.3-8.2)
--- NOTE | 2020-06-06 14:21 | P.ANPRN ---
Procedure Note - Anesthesia - Nerve Block Performed Bilateral Erector Spinae Single Time Out Performed: Yes Date of Procedure: 06/06/20 Procedure Start Time: :28 Procedure Stop Time: :35 Location of Patient: PreOp Indication: Acute Post-Operative Pain, Requested by Surgeon Sedation Type: Sedate with meaningful contact maintained Preparation: Sterile Prep Position: Prone Needle Types: Pajunk Needle Gauge: 21 Ultrasound used to visualize needle placement: Yes Ultrasound used to observe medication spread: Yes Blood Aspirated: No Pain Paresthesia on Injection Noted: No Resistance on Injection: Normal Image Stored and Saved: Yes Events: Uneventful and Well Tolerated (ropi .5% 15cc plus xylo 1% 15cc at t10 bilaterally)
--- NOTE | 2020-06-06 14:23 | P.ANPRN ---
Procedure Note - Anesthesia - Nerve Block Performed Bilateral Erector Spinae Single Time Out Performed: Yes Date of Procedure: 06/06/20 Procedure Start Time: 10:32 Procedure Stop Time: 10:39 Location of Patient: PreOp Indication: Acute Post-Operative Pain, Requested by Surgeon Sedation Type: Sedate with meaningful contact maintained Preparation: Sterile Prep Position: Prone Needle Types: Pajunk Needle Gauge: 21 Ultrasound used to visualize needle placement: Yes Ultrasound used to observe medication spread: Yes Blood Aspirated: No Pain Paresthesia on Injection Noted: No Resistance on Injection: Normal Image Stored and Saved: Yes Events: Uneventful and Well Tolerated (ropi .5% 15cc plus xylo 1% 15cc at t10 bilaterally)
[2020-06-06] MEDS: ALBUTEROL NEBULIZED 2.5 MG/3 ML INHALATION SCH ×2 (15:19→19:01)
[2020-06-06] MEDS ORDERED: ALPRAZolam 0.25 MG TAB PO PRN (15:47)
[2020-06-06] MEDS ORDERED: ALBUTEROL NEBULIZED 2.5 MG/3 ML INHALATION PRN (17:37)
[2020-06-06] MEDS ORDERED: SYMBICORT 80-4.5 MCG INHALER INHALATION PRN (17:37)
[2020-06-06] MEDS ORDERED: ONDANSETRON 4 MG TAB PO PRN (17:37)
[2020-06-06] MEDS ORDERED: LOPERAMIDE 2 MG CAP PO PRN (17:37)
--- NOTE | 2020-06-06 17:37 | P.CONS ---
History of Present Illness - Reason for Consult Consult date: 06/06/20 Medical management Requesting physician: Vamsi Jaimes - Chief Complaint Post gastric sleeve - History of Present Illness HISTORY OF PRESENT ILLNESS: 63-year-old female one of my office patient of known for the last 20 some years with history of asthma, obesity, fibromyalgia, hyperlipidemia, borderline diabetes, supraventricular tachycardia and severe lower back pain who had lap band use ago had lost quite bed rate from it originally and then quit working. Patient has not seen her surgeon for it for long time. Patient had a struggle quite bed with weight gain lately along with comorbidity related to. Was seen Dr. Jaimes and scheduled for elective gastric sleeve which was done today successfully with no major complication. Patient is resting in her bed comfortably having slight distention with mild abdominal pain otherwise not s ymptomatic no nausea or vomiting. We'll resume home meds start patient on DVT, GI and pulmonary prophylaxis. REVIEW OF SYSTEMS: Constitutional: No fever, no chills, no night sweats. No weight change. No weakness, fatigue or lethargy. No daytime sleepiness. EENT: No headache. No blurred vision or double vision, no loss of vision. No loss of Hearing, no ringing in the ears, no dizziness. No nasal drainage or congestion. No epistaxis. No sore throat. Lungs: No shortness of breath, cough, no sputum production. No wheezing. Cardiovascular: No chest pain, no lower extremity edema. No palpitations. No paroxysmal nocturnal dyspnea. No orthopnea. No lightheadedness or dizziness. No syncopal episodes. Abdominal: No abdominal pain. No nausea, vomiting. No diarrhea. No constipation. No bloody or tarry stools.. No loss of appetite. Genitourinary: No dysuria, increased frequency, urgency. No urinary retention. Musculoskeletal: No myalgias. No muscle weakness, no gait dysfunction, no frequent falls. No back pain. No neck pain. Integumentary: No wounds, no lesions. No rash or pruritus. No unusual bruising. No change in hair or nails. Neurologic: No aphasia. No facial droop. No change in mentation. No head injury. No headache. No paralysis. No paresthesia. Psychiatric: No depression. No anxiety. No mood swings. Endocrine: No abnormal blood sugars. No weight change. No excessive sweating or thirst. No cold intolerance. SOCIAL HISTORY: She quit smoking in 2019 smoking half to 1 pack a day for 20 years. No ankle abuse no legal or illegal marijuana use, she does not use any CPAP or oxygen at home she is and lives with her . FAMILY HISTORY: Positive for CVA, CAD, diabetes and cancer. PHYSICAL EXAMINATION: Gen: This is a 64-year-old will be given obese female laying in bed comfortably she is not in any distress. HEENT: Head is atraumatic, normocephalic. Pupils equal, round. Sclerae is anicteric. NECK: Supple. No JVD. No lymphadenopathy. No thyromegaly. LUNGS: Clear to auscultation. No wheezes or rhonchi. No intercostal retract ions. HEART: Regular rate and rhythm. No murmur. ABDOMEN: Soft. Bowel sounds are present. No masses. No tenderness. Incision from her surgery all looks fine with no hemorrhage or bleeding. EXTREMITIES: No pedal edema. No calf tenderness. NEUROLOGICAL: Patient is awake, alert and oriented x3. Cranial nerves 2 through 12 are grossly intact. ASSESSMENT AND PLAN: 1. Post gastric sleeve: Continue home meds continue to watch for any complication watch patient without status control pain incentive spirometry and DVT prophylaxis protocol be use.. 2. History of asthma: Patient has been doing well continue Ventolin nebulizer resume her home Advair. 3. Hypothyroidism: Resume levothyroxine at 75 g daily.. 4. Severe GERD and had a hernia: Patient has been on Protonix and PPI for long time.. 5. Hyperlipidemia: Resume atorvastatin 10 mg daily, along with fenofibrate 145 mg a day. 6. Hypertension: Continue Tenormin 75 mg daily at bedtime.. 7. Depression: Continue duloxetine 60 mg a day. 8. Lower back pain: With recent skeletal muscular discomfort, patient was on Decadron along with Tylenol No. 3 and baclofen an as-needed basis.. 9. GI prophylaxis: Continue pantoprazole. 10. DVT prophylaxis: Continue Lovenox daily. CODE STATUS: Full code Dr. Jaimes thank you much for the consult if I can be any further help to please let me know. Past Medical History Past Medical History: Asthma, Fibromyalgia, GERD/Reflux, Hyperlipidemia, Osteoarthritis (OA), Supraventricular Tachycardia (SVT), Thyroid Disorder Additional Past Medical History / Comment(s): hx migraines, hx heart murmur and "rapid heart rate", Degenerative Disc Disease, back pain, lap band History of Any Multi-Drug Resistant Organisms: None Reported Past Surgical History: Appendectomy, Bariatric Surgery, Cardiac Ablation, Cholecystectomy, Heart Catheterization, Hysterectomy, Joint Replacement, Orthopedic Surgery, Tonsillectomy, Tubal Ligation Additional Past Surgical History / Comment(s): lithotripsy, lap band with hiatal hernia repair, shemar foot surgery, shemar shoulder surgery, shemar knee arthroscopy, D&C, shemar carpal tunnel, fx rt arm/humurus repair, oophorectomy, sinus surgery,laparoscopy x 3, left knee replaced Past Anesthesia/Blood Transfusion Reactions: Family History of Problems w/ Anesthesia, Postoperative Nausea & Vomiting (PONV) Additional Past Anesthesia/Blood Transfusion Reaction / Comm: mother- nausea Smoking Status: Former smoker - Past Family History Mother Family Medical History: Cancer, CVA/TIA Additional Family Medical History / Comment(s): CVA x 5 Medications and Allergies Home Medications Medication Instructions Recorded Confirmed Type ALPRAZolam [Xanax] 0.25 mg PO HS PRN 05/28/14 06/06/20 History Atenolol [Tenormin] 75 mg PO HS 05/28/14 06/06/20 History Fluticasone/Salmeterol [Advair 1 inhalation PO DAILY PRN 05/28/14 06/06/20 History 250-50 Diskus] Ibuprofen [Motrin] 800 mg PO HS 05/28/14 06/06/20 History Atorvastatin [Lipitor] 10 mg PO DAILY 05/04/15 06/06/20 History Albuterol Inhaler (Mhu) [Ventolin 1 - 2 puff INHALATION RT-Q6H PRN 12/11/17 06/06/20 History Hfa Inhaler] Cetirizine HCl [Zyrtec] 5 mg PO HS 12/11/17 06/06/20 History Cholecalciferol [Vitamin D3] 5,000 unit PO DAILY 12/11/17 06/06/20 History DULoxetine HCL [Cymbalta] 60 mg PO HS 12/11/17 06/06/20 History Levothyroxine Sodium [Levo-T] 75 mcg PO QAM 12/11/17 06/06/20 History Baclofen [Lioresal] 10 mg PO TID 03/22/20 06/06/20 History Pyridoxine [Vitamin B-6] 50 mg PO DAILY 03/22/20 06/06/20 History Acetaminophen-Codeine 300-30mg 1 tab PO Q6H 05/30/20 06/06/20 History [Tylenol w/codeine #3] Cyanocobalamin (Vitamin B-12) 1,000 mcg PO DAILY 05/30/20 06/06/20 History [Vitamin B-12] Fenofibrate Nanocrystallized 145 mg PO DAILY 05/30/20 06/06/20 History [Fenofibrate] Loperamide HCl [Imodium A-D] 2 mg PO DAILY PRN 05/30/20 06/06/20 History Melatonin 10 mg PO HS 05/30/20 06/06/20 History Omeprazole 20 mg PO DAILY 05/30/20 06/06/20 History Ondansetron HCl [Zofran] 4 mg PO Q8H PRN 05/30/20 06/06/20 History Temazepam [Restoril] 15 mg PO HS 06/03/20 06/06/20 History Allergies Allergy/AdvReac Type Severity Reaction Status Date / Time hydrocodone bitartrate Allergy Nausea Verified 06/06/20 09:07 [From Vicodin] Penicillins Allergy Anaphylaxis Verified 06/06/20 09:07 metal Allergy Rash/Hives Uncoded 06/06/20 09:07 Physical Exam Vitals: Vital Signs Temp Pulse Resp BP Pulse Ox 06/06/20 16:22 97.6 F 53 L 16 142/87 98 06/06/20 15:20 51 L 16 141/65 96 06/06/20 14:50 52 L 16 139/72 95 06/06/20 14:20 52 L 16 134/65 99 06/06/20 14:00 52 L 16 127/66 99 06/06/20 13:45 51 L 16 127/56 99 06/06/20 13:32 50 L 16 134/64 100 06/06/20 13:17 55 L 16 132/60 99 06/06/20 13:02 61 17 136/62 99 06/06/20 12:47 60 16 145/67 98 06/06/20 12:32 96.8 F L 78 16 149/69 99 06/06/20 09:40 57 L 16 135/74 100 06/06/20 09:00 98.1 F 57 L 17 133/74 98 Intake and Output 06/06/20 06/06/20 06/06/20 06:59 14:59 22:59 Intake Total 1164.5 200 Output Total 20 Balance 1144.5 200 Intake: IV 1164.5 200 Output: Estimated Blood Loss 20 Other: Weight 98.1 kg Results CBC & Chem 7: 06/06/20 09:01 06/06/20 09:01 Labs: Abnormal Lab Results - Last 24 Hours (Table) 06/06/20 Range/Units 09:01 Chloride 109 H (98-107) mmol/L BUN 29 H (7-17) mg/dL
[2020-06-06] MEDS: 0.9% NACL WITH KCL 20 MEQ/L 1,000 ML IV SCH ×2 (18:15→23:22)
[2020-06-06] MEDS: Acetaminophen-Codeine 300-30mg TAB PO SCH ×2 (18:15→22:50)
[2020-06-06] MEDS: BACLOFEN 10 MG TAB PO SCH ×2 (18:15→19:43)
[2020-06-06] MEDS: KETOROLAC 15 MG/ML 1 ML VIAL IVP SCH ×2 (18:19→23:22)
[2020-06-06] MEDS: CLINDAMYCIN 900 MG in DEXTROSE 5% IN WATER 50 ML IVPB SCH ×2 (18:19)
[2020-06-06] MEDS: DULoxetine HCL 60 MG CAPSULE.DR PO SCH (19:37)
[2020-06-06] MEDS: atenoloL 50 MG TAB PO SCH (19:37)
[2020-06-06] MEDS: LORATADINE 10 MG TAB PO SCH (19:38)
[2020-06-06] MEDS: MELATONIN 5 MG TABLET PO SCH (19:38)
[2020-06-07] MEDS: 0.9% NACL WITH KCL 20 MEQ/L 1,000 ML IV SCH (02:29)
[2020-06-07] MEDS: CLINDAMYCIN 900 MG in DEXTROSE 5% IN WATER 50 ML IVPB SCH ×2 (02:29)
[2020-06-07] MEDS: LACTATED RINGERS 1,000 ML IV SCH (02:30)
[2020-06-07] MEDS: KETOROLAC 15 MG/ML 1 ML VIAL IVP SCH ×3 (05:58→18:10)
[2020-06-07] MEDS: LEVOTHYROXINE 75 MCG TAB PO SCH (05:58)
[2020-06-07] MEDS: Acetaminophen-Codeine 300-30mg TAB PO SCH ×3 (05:59→18:11)
[2020-06-07] MEDS: ALBUTEROL NEBULIZED 2.5 MG/3 ML INHALATION SCH ×4 (08:41→20:56)
[2020-06-07] MEDS ORDERED: NON FORMULARY DRUG (Omeprazole [Omeprazole] 20 MG Capsule.Dr) PO SCH (09:00)
[2020-06-07] MEDS: ENOXAPARIN 40 MG/0.4 ML SYRINGE SQ SCH (09:44)
[2020-06-07] MEDS: PANTOPRAZOLE 40 MG/10 ML VIAL IV SCH (09:45)
--- NOTE | 2020-06-07 09:57 | FL ---
EXAMINATION TYPE: FL UGI DATE OF EXAM: 06/07/2020 CLINICAL HISTORY: Status post gastric sleeve Contrast: Omnipaque 350 50 mL The patient ingested contrast without difficulty or delay. Noted are postsurgical changes of gastric sleeve. There is no evidence for leak or obstruction. Contrast is noted within the duodenum. IMPRESSION: Post-surgical change of gastric sleeve without evidence for obstruction or leak at this point in time.
[2020-06-07 10:00] LABS: Basophils # (A) 0.01 X 10*3/uL (0.00-0.10); Basophils % (A) 0.1 %; Eosinophils # (A) 0.01 X 10*3/uL (0.04-0.35); Eosinophils % (A) 0.1 %; HCT 33.4 % (37.2-46.3); HGB 10.8 g/dL (12.0-15.0); Lymphocytes # (A) 1.24 X 10*3/uL (0.90-5.00); Lymphocytes % (A) 13.8 %; MCH 28.6 pg (27.0-32.0); MCHC 32.3 g/dL (32.0-37.0); MCV 88.4 fL (80.0-97.0); Mean Platelet Volume 11.2 fL (9.5-12.2); Monocytes % (A) 12.3 %; Neutrophils # (A) 6.59 X 10*3/uL (1.80-7.70); Neutrophils % (A) 73.5 %; Platelet Count 336 X 10*3/uL (140-440); RBC 3.78 X 10*6/uL (4.10-5.20); RDW 14.2 % (11.5-14.5); WBC 8.97 X 10*3/uL (4.50-10.00)
[2020-06-07] MEDS: CHOLECALCIFEROL 25 MCG (1000 IU) TABLET PO SCH (10:04)
[2020-06-07] MEDS: CYANOCOBALAMIN 500 MCG TAB PO SCH (10:04)
[2020-06-07] MEDS: ATORVASTATIN 10 MG TAB PO SCH (10:05)
[2020-06-07] MEDS: BACLOFEN 10 MG TAB PO SCH ×3 (10:05→21:05)
[2020-06-07] MEDS: PYRIDOXINE 50 MG TAB PO SCH (10:05)
[2020-06-07] MEDS: 1: MVI, ADULT NO.4 WITH VIT K 10 ML, THIAMINE 100 MG, FOLIC ACID 1 MG, POTASSIUM CHLORID IV SCH ×12 (10:36→18:13)
[2020-06-07 10:43] LABS: African American GFR (CKD) 69.4 (60.0-200.0); Anion Gap 9.3 mmol/L (4.00-12.00); Calcium 8.8 mg/dL (8.7-10.3); Carbon Dioxide 22.7 mmol/L (21.6-31.8); Magnesium 1.4 mg/dL (1.5-2.4); Non-African American GFR(CKD) 59.9 (60.0-200.0); Phosphorus 3.9 mg/dL (2.4-5.1); Potassium 4.4 mmol/L (3.5-5.5)
[2020-06-07 10:48] VITALS: BMI 41.5
[2020-06-07] MEDS ORDERED: Magnesium Replacement Protocol 1 EACH MISC MISCELLANE PRN (11:31)
--- NOTE | 2020-06-07 12:10 | P.PN ---
Subjective Progress Note Date: 06/07/20 HISTORY OF PRESENT ILLNESS: 63-year-old female one of my office patient of known for the last 20 some years with history of asthma, obesity, fibromyalgia, hyperlipidemia, borderline diabetes, supraventricular tachycardia and severe lower back pain who had lap band use ago had lost quite bed rate from it originally and then quit working. Patient has not seen her surgeon for it for long time. Patient had a struggle quite bed with weight gain lately along with comorbidity related to. Was seen Dr. Jaimes and scheduled for elective gastric sleeve which was done today successfully with no major complication. Patient is resting in her bed comfortably having slight distention with mild abdominal pain otherwise not symptomatic no nausea or vomiting. We'll resume home meds start patient on DVT, GI and pulmonary prophylaxis. 06/07: Patient has been afebrile, heart rate 82, blood pressure 120/74, pulse ox 95% on room air. Patient is currently nothing by mouth except for ice chips. Upper GI series revealed postsurgical change of gastric sleeve without evidence of obstruction or leak. Pathology report is pending. Repeat blood work reveals hemoglobin 10.8, WBC 8.97. Electrolytes normal except for chloride of 110. BUN 29 and creatinine 1. Magnesium 1.4, magnesium will be replaced. Phosphorus 3.9. Potassium is 4.4.. REVIEW OF SYSTEMS: Constitutional: No fever, no chills, no night sweats. No weight change. No weakness, fatigue or lethargy. No daytime sleepiness. EENT: No headache. No blurred vision or double vision, no loss of vision. No loss of Hearing, no ringing in the ears, no dizziness. No nasal drainage or congestion. No epistaxis. No sore throat. Lungs: No shortness of breath, cough, no sputum production. No wheezing. Cardiovascular: No chest pain, no lower extremity edema. No palpitations. No paroxysmal nocturnal dyspnea. No orthopnea. No lightheadedness or dizziness. No syncopal episodes. Abdominal: Reports mild abdominal pain. No nausea, vomiting. No diarrhea. No constipation. No bloody or tarry stools.. No loss of appetite. Genitourinary: No dysuria, increased frequency, urgency. No urinary retention. Musculoskeletal: No myalgias. No muscle weakness, no gait dysfunction, no frequent falls. No back pain. No neck pain. Integumentary: No wounds, no lesions. No rash or pruritus. No unusual bruising. No change in hair or nails. Neurologic: No aphasia. No facial droop. No change in mentation. No head injury. No headache. No paralysis. No paresthesia. Psychiatric: No depression. No anxiety. No mood swings. Endocrine: No abnormal blood sugars. No weight change. No excessive sweating or thirst. No cold intolerance. PHYSICAL EXAMINATION: Gen: This is a 64-year-old will be given obese female laying in bed comfortably she is not in any distress. HEENT: Head is atraumatic, normocephalic. Pupils equal, round. Sclerae is anicteric. NECK: Supple. No JVD. No lymphadenopathy. No thyromegaly. LUNGS: Clear to auscultation. No wheezes or rhonchi. No intercostal retractions. HEART: Regular rate and rhythm. No murmur. ABDOMEN: Soft. Bowel sounds are present. No masses. No tenderness. Incision from her surgery all looks fine with no hemorrhage or bleeding. EXTREMITIES: No pedal edema. No calf tenderness. NEUROLOGICAL: Patient is awake, alert and oriented x3. Cranial nerves 2 through 12 are grossly intact. ASSESSMENT AND PLAN: 1. Post gastric sleeve: Continue home meds continue to watch for any complication watch patient without status control pain, incentive spirometry and DVT prophylaxis protocol be use. 2. History of asthma: Patient has been doing well continue Ventolin nebulizer resume her home Advair. 3. Hypothyroidism: Resume levothyroxine at 75 g daily. 4. Severe GERD and had a hernia: Patient has been on Protonix and PPI for long time. 5. Hyperlipidemia: Resume atorvastatin 10 mg daily, along with fenofibrate 145 mg a day. 6. Hypertension: Continue Tenormin 75 mg daily at bedtime.. 7. Depression: Continue duloxetine 60 mg a day. 8. Lower back pain: With recent skeletal muscular discomfort, patient was on Decadron along with Tylenol No. 3 and baclofen an as-needed basis. 9. Pulmonary see me in. Replacement. Recheck magnesium in the morning. 10. GI prophylaxis: Continue pantoprazole. 11. DVT prophylaxis: Continue Lovenox daily. CODE STATUS: Full code DISCHARGE PLAN Home is likely on Saturday Impression and plan of care have been directed as dictated by the signing physician. Carisa Constantino nurse practitioner acting as scribe for signing physician. Objective - Vital Signs Vital signs: Vital Signs Temp 98.6 F 06/07/20 04:42 Pulse 82 06/07/20 04:42 Resp 12 06/07/20 00:00 BP 120/74 06/07/20 04:42 Pulse Ox 95 06/07/20 04:42 Intake & Output 06/06/20 06/07/20 06/07/20 18:59 06:59 18:59 Intake Total 1364.5 600 Output Total 20 Balance 1344.5 600 Weight 98.1 kg Intake: IV 1364.5 Intake, IV Titration 600 Amount 0.9% NaCl with KCl 20 Meq 600 /l 1,000 ml @ 100 mls/hr IV .BY DURATION MATT Rx#: [id number] Output: Estimated Blood Loss 20 Other: Voiding Method Toilet # Voids 1 2 - Labs CBC & Chem 7: 06/07/20 05:15 06/07/20 05:15 Labs: Abnormal Lab Results - Last 24 Hours (Table) 06/06/20 Range/Units 09:01 Chloride 109 H (98-107) mmol/L BUN 29 H (7-17) mg/dL
[2020-06-07] MEDS: MAGNESIUM SULFATE-D5W PMX 1 GM in DEXTROSE/WATER 1 100ML.BAG IVPB SCH ×3 (12:40→16:28)
--- NOTE | 2020-06-07 12:40 | P.PN ---
Subjective Progress Note Date: 06/07/20 CHIEF COMPLAINT: Morbid obesity HISTORY OF PRESENT ILLNESS: Patient is postop day #1 status post laparoscopic sleeve gastrectomy and removal of lap band system. Upper GI shows no evidence of leak or obstruction. She started on bariatric clear liquid diet. Patient is complaining of pain. She does rate her pain about a 7 out of 10. She denies any nausea or vomiting. Denies any difficulty urinating. She is passing gas. Afebrile. WBC 8.97 hemoglobin 10.8 magnesium 1.4 Patient seen and examined with Dr. Jaimes PHYSICAL EXAM: VITAL SIGNS: Reviewed. GENERAL: Well-developed in no acute distress. HEENT: No sclera icterus. Extraocular movements grossly intact. Moist buccal mucosa. Head is atraumatic, normocephalic. ABDOMEN: Soft. Nondistended. Incision sites clean dry and intact NEUROLOGIC: Alert and oriented. Cranial nerves II through XII grossly intact. ASSESSMENT: 1. Morbid obesity, BMI 42 and dysphasia status post removal of lap band system and laparoscopic sleeve gastrectomy 2. Hypomagnesemia receiving supplement PLAN: -Continue pain medication as needed -Start bariatric clear liquid diet -Encouraged patient to use incentive spirometer -Encouraged patient to ambulate -Anticipate discharge tomorrow Physician Rope Making Machine Operator note has been reviewed by physician. Signing provider agrees with the documented findings, assessment, and plan of care. Objective - Vital Signs Vital signs: Vital Signs Temp 98.6 F 06/07/20 04:42 Pulse 80 06/07/20 08:50 Resp 12 06/07/20 00:00 BP 120/74 06/07/20 04:42 Pulse Ox 97 06/07/20 08:42 Intake & Output 06/06/20 06/07/20 06/07/20 18:59 06:59 18:59 Intake Total 1364.5 600 Output Total 20 Balance 1344.5 600 Weight 98.1 kg 98.1 kg Intake: IV 1364.5 Intake, IV Titration 600 Amount 0.9% NaCl with KCl 20 Meq 600 /l 1,000 ml @ 100 mls/hr IV .BY DURATION MATT Rx#: [id number] Output: Estimated Blood Loss 20 Other: Voiding Method Toilet # Voids 1 2 - Labs CBC & Chem 7: 06/07/20 05:15 06/07/20 05:15 Labs: Abnormal Lab Results - Last 24 Hours (Table) 06/06/20 06/07/20 06/07/20 Range/Units 09:01 05:15 05:15 RBC 3.78 L (4.10-5.20) X 10*6/uL Hgb 10.8 L (12.0-15.0) g/dL Hct 33.4 L (37.2-46.3) % Monocytes # 1.10 H (0.20-1.00) X 10*3/uL Eosinophils # 0.01 L (0.04-0.35) X 10*3/uL Chloride 109 H 110 H (98-107) mmol/L BUN 29 H 29.0 H (7-17) mg/dL Est GFR (CKD-EPI)NonAf 59.9 L (60.0-200.0) Magnesium 1.4 L (1.5-2.4) mg/dL
[2020-06-07] MEDS: FENOFIBRATE 160 MG TAB PO SCH (12:44)
[2020-06-07] MEDS: MELATONIN 5 MG TABLET PO SCH (21:05)
[2020-06-07] MEDS: DULoxetine HCL 60 MG CAPSULE.DR PO SCH (21:05)
[2020-06-07] MEDS: LORATADINE 10 MG TAB PO SCH (21:05)
[2020-06-07] MEDS: atenoloL 50 MG TAB PO SCH (21:05)
[2020-06-08] MEDS: Acetaminophen-Codeine 300-30mg TAB PO SCH ×3 (00:36→12:56)
[2020-06-08] MEDS: KETOROLAC 15 MG/ML 1 ML VIAL IVP SCH ×3 (00:38→12:57)
[2020-06-08] MEDS: LACTATED RINGERS 1,000 ML IV SCH (06:33)
[2020-06-08] MEDS: ALBUTEROL NEBULIZED 2.5 MG/3 ML INHALATION SCH ×2 (09:16→13:04)
[2020-06-08] MEDS: CYANOCOBALAMIN 500 MCG TAB PO SCH (10:09)
[2020-06-08] MEDS: CHOLECALCIFEROL 25 MCG (1000 IU) TABLET PO SCH (10:09)
[2020-06-08] MEDS: BACLOFEN 10 MG TAB PO SCH (10:09)
[2020-06-08] MEDS: ATORVASTATIN 10 MG TAB PO SCH (10:09)
[2020-06-08] MEDS: PANTOPRAZOLE 40 MG/10 ML VIAL IV SCH (10:10)
[2020-06-08] MEDS: ENOXAPARIN 40 MG/0.4 ML SYRINGE SQ SCH (10:10)
[2020-06-08 10:32] LABS: Basophils # (A) 0.03 X 10*3/uL (0.00-0.10); Basophils % (A) 0.4 %; Eosinophils # (A) 0.17 X 10*3/uL (0.04-0.35); Eosinophils % (A) 2.3 %; HCT 29.7 % (37.2-46.3); HGB 9.4 g/dL (12.0-15.0); Lymphocytes # (A) 2.09 X 10*3/uL (0.90-5.00); Lymphocytes % (A) 28.6 %; MCH 28.9 pg (27.0-32.0); MCHC 31.6 g/dL (32.0-37.0); MCV 91.4 fL (80.0-97.0); Mean Platelet Volume 11.2 fL (9.5-12.2); Monocytes # (A) 0.91 X 10*3/uL (0.20-1.00); Monocytes % (A) 12.4 %; Neutrophils # (A) 4.09 X 10*3/uL (1.80-7.70); Neutrophils % (A) 55.9 %; Platelet Count 301 X 10*3/uL (140-440); RBC 3.25 X 10*6/uL (4.10-5.20); RDW 14.8 % (11.5-14.5); WBC 7.32 X 10*3/uL (4.50-10.00)
[2020-06-08] MEDS: 1: MVI, ADULT NO.4 WITH VIT K 10 ML, THIAMINE 100 MG, FOLIC ACID 1 MG, POTASSIUM CHLORID IV SCH ×12 (11:00→16:10)
[2020-06-08] MEDS: LEVOTHYROXINE 75 MCG TAB PO SCH (11:01)
[2020-06-08] MEDS: FENOFIBRATE 160 MG TAB PO SCH (11:01)
[2020-06-08] MEDS: PYRIDOXINE 50 MG TAB PO SCH (11:02)
--- NOTE | 2020-06-08 11:45 | P.PN ---
Subjective Progress Note Date: 06/08/20 HISTORY OF PRESENT ILLNESS: 63-year-old female one of my office patient of known for the last 20 some years with history of asthma, obesity, fibromyalgia, hyperlipidemia, borderline diabetes, supraventricular tachycardia and severe lower back pain who had lap band use ago had lost quite bed rate from it originally and then quit working. Patient has not seen her surgeon for it for long time. Patient had a struggle quite bed with weight gain lately along with comorbidity related to. Was seen Dr. Jaimes and scheduled for elective gastric sleeve which was done today successfully with no major complication. Patient is resting in her bed comfortably having slight distention with mild abdominal pain otherwise not symptomatic no nausea or vomiting. We'll resume home meds start patient on DVT, GI and pulmonary prophylaxis. 06/07: Patient has been afebrile, heart rate 82, blood pressure 120/74, pulse ox 95% on room air. Patient is currently nothing by mouth except for ice chips. Upper GI series revealed postsurgical change of gastric sleeve without evidence of obstruction or leak. Pathology report is pending. Repeat blood work reveals hemoglobin 10.8, WBC 8.97. Electrolytes normal except for chloride of 110. BUN 29 and creatinine 1. Magnesium 1.4, magnesium will be replaced. Phosphorus 3.9. Potassium is 4.4.. 06/08: Patient has been afebrile, heart rate 65, blood pressure 90/57, pulse ox 95% on room air. Pain is currently controlled. Patient is reaching 100o ml incentive spirometry. WBC 7.3, hemoglobin 9.4. He is tolerating bariatric diet, no nausea or vomiting. She states she has less abdominal bloating today. She is burping and passing flatulence. Anticipate she will be discharged home today. REVIEW OF SYSTEMS: Constitutional: No fever, no chills, no night sweats. No weight change. No weakness, fatigue or lethargy. No daytime sleepiness. EENT: No headache. No blurred vision or double vision, no loss of vision. No loss of Hearing, no ringing in the ears, no dizziness. No nasal drainage or congestion. No epistaxis. No sore throat. Lungs: No shortness of breath, cough, no sputum production. No wheezing. Cardiovascular: No chest pain, no lower extremity edema. No palpitations. No paroxysmal nocturnal dyspnea. No orthopnea. No lightheadedness or dizziness. No syncopal episodes. Abdominal: Reports mild abdominal pain. No nausea, vomiting. No diarrhea. No constipation. No bloody or tarry stools.. No loss of appetite. Genitourinary: No dysuria, increased frequency, urgency. No urinary retention. Musculoskeletal: No myalgias. No muscle weakness, no gait dysfunction, no frequent falls. No back pain. No neck pain. Integumentary: No wounds, no lesions. No rash or pruritus. No unusual bruising. No change in hair or nails. Neurologic: No aphasia. No facial droop. No change in mentation. No head injury. No headache. No paralysis. No paresthesia. Psychiatric: No depression. No anxiety. No mood swings. Endocrine: No abnormal blood sugars. No weight change. No excessive sweating or thirst. No cold intolerance. PHYSICAL EXAMINATION: Gen: This is a 64-year-old will be given obese female laying in bed comfortably she is not in any distress. HEENT: Head is atraumatic, normocephalic. Pupils equal, round. Sclerae is anicteric. NECK: Supple. No JVD. No lymphadenopathy. No thyromegaly. LUNGS: Clear to auscultation. No wheezes or rhonchi. No intercostal retractions. HEART: Regular rate and rhythm. No murmur. ABDOMEN: Soft. Bowel sounds are present. No masses. No tenderness. Incision from her surgery all looks fine with no hemorrhage or bleeding. EXTREMITIES: No pedal edema. No calf tenderness. NEUROLOGICAL: Patient is awake, alert and oriented x3. Cranial nerves 2 through 12 are grossly intact. ASSESSMENT AND PLAN: 1. Post gastric sleeve, postop day #2: Continue home meds continue to watch for any complication watch patient without status control pain, incentive spirometry and DVT prophylaxis protocol be use. 2. History of asthma: Patient has been doing well continue Ventolin nebulizer resume her home Advair. 3. Hypothyroidism: Resume levothyroxine at 75 g daily. 4. Severe GERD and had a hernia: Patient has been on Protonix and PPI for long time. 5. Hyperlipidemia: Resume atorvastatin 10 mg daily, along with fenofibrate 145 mg a day. 6. Hypertension: Continue Tenormin 75 mg daily at bedtime.. 7. Depression: Continue duloxetine 60 mg a day. 8. Lower back pain: With recent skeletal muscular discomfort, patient was on Decadron along with Tylenol No. 3 and baclofen an as-needed basis. 9. Pulmonary see me in. Replacement. Recheck magnesium in the morning. 10. GI prophylaxis: Continue pantoprazole. 11. DVT prophylaxis: Continue Lovenox daily. CODE STATUS: Full code DISCHARGE PLAN Home Impression and plan of care have been directed as dictated by the signing physician. Carisa Constantino nurse practitioner acting as scribe for signing physic stella. Objective - Vital Signs Vital signs: Vital Signs Temp 97.8 F 06/08/20 04:48 Pulse 65 06/08/20 04:48 Resp 16 06/08/20 04:48 BP 90/57 06/08/20 04:48 Pulse Ox 95 06/08/20 04:48 Intake & Output 06/07/20 06/08/20 06/08/20 18:59 06:59 18:59 Intake Total 1440 Balance 1440 Weight 98.1 kg Intake: Intake, IV Titration 1200 Amount 0.9% NaCl with KCl 20 Meq 900 /l 1,000 ml @ 100 mls/hr IV .BY DURATION MATT Rx#: [id number] Magnesium Sulfate-D5w Pmx 300 1 gm In Dextrose/Water 1 100ml.bag @ 100 mls/hr IVPB Q1H MATT Rx#: [id number] Oral 240 Other: # Voids 3 2 - Labs CBC & Chem 7: 06/08/20 06:11 06/07/20 05:15 Labs: Abnormal Lab Results - Last 24 Hours (Table) 06/07/20 06/07/20 Range/Units 05:15 05:15 RBC 3.78 L (4.10-5.20) X 10*6/uL Hgb 10.8 L (12.0-15.0) g/dL Hct 33.4 L (37.2-46.3) % Monocytes # 1.10 H (0.20-1.00) X 10*3/uL Eosinophils # 0.01 L (0.04-0.35) X 10*3/uL Chloride 110 H (96-109) mmol/L BUN 29.0 H (9.0-27.0) mg/dL Est GFR (CKD-EPI)NonAf 59.9 L (60.0-200.0) Magnesium 1.4 L (1.5-2.4) mg/dL
[2020-06-08 12:07] VITALS: BP 98/57; PULSE 56; RESP 17; TEMP 97.9
--- NOTE | 2020-06-08 14:17 | P.DS ---
Providers Date of admission: 06/06/20 08:08 Expected date of discharge: 06/08/20 Attending physician: Vamsi Jaimes Consults: 06/06/20 12:20 Consult Physician Routine Consulting Provider: Mauro Marcus Reason/Comments: Medical management Do you want consulting provider notified?: Yes Primary care physician: Mauro Marcus Hospital Course: Discharge diagnosis 1. Morbid obesity, BMI 42 and dysphagia status post removal of lap band system and laparoscopic sleeve gastrectomy 2. Hypomagnesemia improved with supplemental Hospital course This is a 64-year-old female with a known history of morbid obesity. She has chronic GERD and dysphagia related to her lap band. She is status post removal of lap band system and laparoscopic sleeve gastrectomy. Patient tolerated surgery well. Her upper GI showed no evidence of a leak or obstruction. Her pain is controlled. She denies any difficulty swallowing. She is passing gas. She has been up and ambulating. She is afebrile. She is stable for discharge. Please refer to chart for any further details. Physician Government Clerk note has been reviewed by physician. Signing provider agrees with the documented findings, assessment, and plan of care. Patient Condition at Discharge: Stable Plan - Discharge Summary Discharge Rx Participant: No New Discharge Prescriptions: New bisacodyL [Dulcolax] 5 mg PO DAILY PRN #10 tablet.dr PRN Reason: Constipation Ondansetron Odt [Zofran Odt] 4 mg PO Q8HR PRN #9 tab PRN Reason: Nausea Simethicone 40 mg/0.6 ml Drops [Mylicon Drops] 40 mg PO PCHS PRN #30 ml PRN Reason: Gas Continue Fluticasone/Salmeterol [Advair 250-50 Diskus] 1 inhalation PO DAILY PRN PRN Reason: Shortness Of Breath ALPRAZolam [Xanax] 0.25 mg PO HS PRN PRN Reason: Anxiety Atenolol [Tenormin] 75 mg PO HS Atorvastatin [Lipitor] 10 mg PO DAILY Cholecalciferol [Vitamin D3 (25 Mcg = 1000 Iu)] 5,000 unit PO DAILY Cetirizine HCl [Zyrtec] 5 mg PO HS DULoxetine HCL [Cymbalta] 60 mg PO HS Albuterol Inhaler (Mhu) [Ventolin Hfa Inhaler (Mhu)] 1 - 2 puff INHALATION RT-Q6H PRN PRN Reason: Dyspnea Levothyroxine Sodium [Levo-T] 75 mcg PO QAM Pyridoxine [Vitamin B-6] 50 mg PO DAILY Baclofen [Lioresal] 10 mg PO TID Ondansetron HCl [Zofran] 4 mg PO Q8H PRN PRN Reason: Nausea And Vomiting Melatonin 10 mg PO HS Fenofibrate Nanocrystallized [Fenofibrate] 145 mg PO DAILY Cyanocobalamin (Vitamin B-12) [Vitamin B-12] 1,000 mcg PO DAILY Acetaminophen-Codeine 300-30mg [Tylenol w/codeine #3] 1 tab PO Q6H Loperamide HCl [Imodium A-D] 2 mg PO DAILY PRN PRN Reason: Diarrhea Omeprazole 20 mg PO DAILY Temazepam [Restoril] 15 mg PO HS Discontinued Ibuprofen [Motrin] 800 mg PO HS Discharge Medication List ALPRAZolam [Xanax] 0.25 mg PO HS PRN 05/28/14 [History] Atenolol [Tenormin] 75 mg PO HS 05/28/14 [History] Fluticasone/Salmeterol [Advair 250-50 Diskus] 1 inhalation PO DAILY PRN 05/28/14 [History] Atorvastatin [Lipitor] 10 mg PO DAILY 05/04/15 [History] Albuterol Inhaler (Mhu) [Ventolin Hfa Inhaler (Mhu)] 1 - 2 puff INHALATION RT- Q6H PRN 12/11/17 [History] Cetirizine HCl [Zyrtec] 5 mg PO HS 12/11/17 [History] Cholecalciferol [Vitamin D3 (25 Mcg = 1000 Iu)] 5,000 unit PO DAILY 12/11/17 [History] DULoxetine HCL [Cymbalta] 60 mg PO HS 12/11/17 [History] Levothyroxine Sodium [Levo-T] 75 mcg PO QAM 12/11/17 [History] Baclofen [Lioresal] 10 mg PO TID 03/22/20 [History] Pyridoxine [Vitamin B-6] 50 mg PO DAILY 03/22/20 [History] Acetaminophen-Codeine 300-30mg [Tylenol w/codeine #3] 1 tab PO Q6H 05/30/20 [History] Cyanocobalamin (Vitamin B-12) [Vitamin B-12] 1,000 mcg PO DAILY 05/30/20 [History] Fenofibrate Nanocrystallized [Fenofibrate] 145 mg PO DAILY 05/30/20 [History] Loperamide HCl [Imodium A-D] 2 mg PO DAILY PRN 05/30/20 [History] Melatonin 10 mg PO HS 05/30/20 [History] Omeprazole 20 mg PO DAILY 05/30/20 [History] Ondansetron HCl [Zofran] 4 mg PO Q8H PRN 05/30/20 [History] Temazepam [Restoril] 15 mg PO HS 06/03/20 [History] Ondansetron Odt [Zofran Odt] 4 mg PO Q8HR PRN #9 tab 06/08/20 [Rx] Simethicone 40 mg/0.6 ml Drops [Mylicon Drops] 40 mg PO PCHS PRN #30 ml 06/08/20 [Rx] bisacodyL [Dulcolax] 5 mg PO DAILY PRN #10 tablet. 06/08/20 [Rx] Follow up Appointment(s)/Referral(s): Mauro Marcus MD [Primary Care Provider] - 1 Week [place], [place] [NON-STAFF] - 06/10/20 10:30 am (Please follow up with [facility] on Saturday, June 10 at 1030 am for a nurse visit. ) Patient Instructions/Handouts: Nutrition after Bariatric Surgery (DC), Bowel Management After Bariatric Surgery (DC), Laparoscopic Sleeve Gastrectomy (DC) Activity/Diet/Wound Care/Special Instructions: No driving while taking [place] No lifting over 10 pounds You may shower. No soaking or tub baths for 2 weeks Very light activity until you are reevaluated at your follow up appointment with your surgeon Cut, crush or open all pills to the size smaller than a TicTac No straws or carbonated beverages Discharge Disposition: HOME SELF-CARE
== END 2020-06-08 16:05 | disposition home or self-care (01) | DRG 327 ==
LOC: 2ORMAIN 08:08 → 4SSUR 15:14 → 5NMEDONC 06-07 00:10
PROVIDERS: ADMIT Surgery; ATTEND Surgery
PROC: 0DB64Z3 Excision of Stomach, Percutaneous Endoscopic Approach, Vertical (ICD-10-PCS; principal; 2020-06-06 09:55)
PROC: 0DP64JZ Removal of Synthetic Substitute from Stomach, Percutaneous Endoscopic Approach (ICD-10-PCS; 2020-06-06 09:55)
DX: K95.09 Other complications of gastric band procedure (principal); Z68.41 Body mass index [BMI] 40.0-44.9, adult; R13.10 Dysphagia, unspecified; M79.7 Fibromyalgia; K21.9 Gastro-esophageal reflux disease without esophagitis; Z87.891 Personal history of nicotine dependence; Z82.3 Family history of stroke; J45.909 Unspecified asthma, uncomplicated; E03.9 Hypothyroidism, unspecified; E78.5 Hyperlipidemia, unspecified; I10 Essential (primary) hypertension; F32.9 Major depressive disorder, single episode, unspecified; M54.5 Low back pain; G89.29 Other chronic pain; E66.01 Morbid (severe) obesity due to excess calories; E83.42 Hypomagnesemia; Y84.8 Other medical procedures as the cause of abnormal reaction of the patient, or of later complication, without mention of misadventure at the time of the procedure
CPT/HCPCS: 64448; 64999; 74240; 80051; 80053; 82310; 82565; 83735; 84100; 84520; 85025; 88307; 88342; 94640; 94760; 94762

== ENCOUNTER → 2020-06-10 | Outpatient (CLI) | payer MEDICARE ==
[2020-06-10 11:43] VITALS: BP 130/83; PULSE 63; RESP 18; TEMP 98; BMI 42.7
== END ==
LOC: BARWHC3 10:31
PROVIDERS: ATTEND Surgery
DX: E66.01 Morbid (severe) obesity due to excess calories (principal); Z68.41 Body mass index [BMI] 40.0-44.9, adult; Z87.891 Personal history of nicotine dependence; Z98.84 Bariatric surgery status
CPT/HCPCS: 99211

== ENCOUNTER → 2020-06-13 | Outpatient (CLI) | payer MEDICARE ==
[2020-06-13 15:48] VITALS: BMI 40.7
--- NOTE | 2020-07-12 12:56 | P.HPBAR ---
Bariatric H&P - History & Physicial H&P Date: 06/13/20 History & Physicial: Visit/CC: follow up/ 1 week Patient initial contact: Initial weight: 101.264 kg Initial weight in pounds: 223.25 Height: 5 ft 0.5 in Initial BMI: 42.8 Last weight: Current weight: 96.162 kg Current weight in pounds: 212.00 Current BMI: 40.7 [place] body weight (based on NIH guidelines): 46.493 kg Excess body weight loss: 9.3% The patient is a 64 year-old F who presents for Bariatric Assessment. Patient presents today for sleeve gastrectomy postoperative follow-up. She has minimal complaints. Past Medical History Past Medical History: Asthma, Fibromyalgia, GERD/Reflux, Hyperlipidemia, Osteoarthritis (OA), Supraventricular Tachycardia (SVT), Thyroid Disorder Additional Past Medical History / Comment(s): hx migraines, hx heart murmur and "rapid heart rate", Degenerative Disc Disease, back pain, lap band History of Any Multi-Drug Resistant Organisms: None Reported Past Surgical History: Appendectomy, Bariatric Surgery, Cardiac Ablation, Cholecystectomy, Heart Catheterization, Hysterectomy, Joint Replacement, Orthopedic Surgery, Tonsillectomy, Tubal Ligation Additional Past Surgical History / Comment(s): lithotripsy, lap band with hiatal hernia repair - lap band removed on 06/06/20, shemar foot surgery, shemar shoulder surgery, shemar knee arthroscopy, D&C, shemar carpal tunnel, fx rt arm/humurus repair, oophorectomy, sinus surgery,laparoscopy x 3, left knee replaced, gastric sleeve done 06/06/[address] Jaimes Past Anesthesia/Blood Transfusion Reactions: Family History of Problems w/ Anesthesia, Postoperative Nausea & Vomiting (PONV) Additional Past Anesthesia/Blood Transfusion Reaction / Comm: mother- nausea Past Psychological History: Anxiety Smoking Status: Former smoker Past Alcohol Use History: Rare Additional Past Alcohol Use History / Comment(s): quit smoking 1999, smoked off & on since age of 13, always <ppd Past Drug Use History: None Reported - Past Family History Mother Family Medical History: Cancer, CVA/TIA Additional Family Medical History / Comment(s): CVA x 5 Surgical - Exam - General well developed, well nourished, no distress - ENT normal pinna - Neck no masses - Respiratory normal expansion - Cardiovascular Rhythm: regular - Abdomen Abdomen: soft Hernia: none Bariatric Assessment & Plan Plan: Status post sleeve gastrectomy. Patient did well. She'll follow-up in 2 weeks. Bariatric Checklist Checklist: Plan: Checklist: EGD: 1. Hiatal hernia: 2. H. Pylori: HgbA1c: Vitamin D: Smoking: Former smoker Primary care physician referral: Dr. Marcus Psychiatry clearance: Cardiology clearance: Sleep study: Diet journal: VTE risk score: VTE risk level: Rehab needs at discharge:
== END ==
LOC: BARWHC3 14:35
PROVIDERS: ATTEND Surgery
DX: Z09 Encounter for follow-up examination after completed treatment for conditions other than malignant neoplasm (principal); J45.909 Unspecified asthma, uncomplicated; E78.5 Hyperlipidemia, unspecified; M19.90 Unspecified osteoarthritis, unspecified site; Z98.84 Bariatric surgery status; F41.9 Anxiety disorder, unspecified; Z87.891 Personal history of nicotine dependence; Z88.0 Allergy status to penicillin; Z88.3 Allergy status to other anti-infective agents
CPT/HCPCS: 97803; G0463; 99211

== ENCOUNTER → 2020-06-16 | Outpatient (CLI) | payer MEDICARE ==
[~2020-06-16] MED LIST changes: -CLINDAMYCIN 900 MG in DEXTROSE 5% IN WATER 50 ML IVPB PRN; -DEXAMETHASONE SOD PHOSPHATE 4 MG/ML 1 ML VIAL IV ONE; -ENOXAPARIN 40 MG/0.4 ML SYRINGE SQ PRN; -GENTAMICIN 340 MG in SODIUM CHLORIDE 0.9% 100 ML IVPB PRN; -ONDANSETRON 4 MG/2 ML VIAL IVP ONE; +SODIUM CHLORIDE 0.9% 2,000 ML IV ONE
[2020-06-16 10:14] VITALS: BP 135/80; PULSE 73; RESP 16; TEMP 97.7
== END ==
LOC: PROCWHC3 10:02
PROVIDERS: ATTEND Surgery
DX: E86.0 Dehydration (principal)
CPT/HCPCS: 96360; 96361

== ENCOUNTER → 2020-06-20 | Outpatient (CLI) | payer MEDICARE ==
--- NOTE | 2020-06-20 15:30 | P.HPBAR ---
Bariatric H&P - History & Physicial H&P Date: 06/20/20 History & Physicial: Visit/CC: Patient initial contact: Initial weight: 101.264 kg Initial weight in pounds: Height: Initial BMI: Last weight: 212 Current weight: 201 Current weight in pounds: Current BMI: [place] body weight (based on NIH guidelines): Excess body weight loss: The patient is a 64 year-old F who presents for Bariatric Assessment. Patient is status post sleeve gastrectomy. She's doing quite well. She's had some mild GERD. Past Medical History Past Medical History: Asthma, Fibromyalgia, GERD/Reflux, Hyperlipidemia, Osteoarthritis (OA), Supraventricular Tachycardia (SVT), Thyroid Disorder Additional Past Medical History / Comment(s): hx migraines, hx heart murmur and "rapid heart rate", Degenerative Disc Disease, back pain, lap band History of Any Multi-Drug Resistant Organisms: None Reported Past Surgical History: Appendectomy, Bariatric Surgery, Cardiac Ablation, Cholecystectomy, Heart Catheterization, Hysterectomy, Joint Replacement, Orthopedic Surgery, Tonsillectomy, Tubal Ligation Additional Past Surgical History / Comment(s): lithotripsy, lap band with hiatal hernia repair - lap band removed on 06/06/20, shemar foot surgery, shemar shoulder surgery, shemar knee arthroscopy, D&C, shemar carpal tunnel, fx rt arm/humurus repair, oophorectomy, sinus surgery,laparoscopy x 3, left knee replaced, gastric sleeve done 06/06/[address] Jaimes Past Anesthesia/Blood Transfusion Reactions: Family History of Problems w/ Anesthesia, Postoperative Nausea & Vomiting (PONV) Additional Past Anesthesia/Blood Transfusion Reaction / Comm: mother- nausea Smoking Status: Former smoker - Past Family History Mother Family Medical History: Cancer, CVA/TIA Additional Family Medical History / Comment(s): CVA x 5 Surgical - Exam - General well developed, well nourished, no distress - Eyes PERRL - ENT normal pinna - Neck no masses - Respiratory normal expansion - Abdomen Abdomen: soft, non tender Bariatric Assessment & Plan Plan: Status post sleeve gastrectomy. Patient did well. She'll follow-up in 4 weeks. Her GERD is minimal will be observed. Bariatric Checklist Checklist: Plan: Checklist: EGD: 1. Hiatal hernia: 2. H. Pylori: HgbA1c: Vitamin D: Smoking: Former smoker Primary care physician referral: adrian Psychiatry clearance: Cardiology clearance: Sleep study: Diet journal: VTE risk score: VTE risk level: Rehab needs at discharge:
[2020-06-21 08:56] VITALS: BP 113/82; PULSE 76; TEMP 98.2; BMI 39.7
== END ==
LOC: BARWHC3 14:34
PROVIDERS: ATTEND Surgery
DX: E66.01 Morbid (severe) obesity due to excess calories (principal); J45.909 Unspecified asthma, uncomplicated; K21.9 Gastro-esophageal reflux disease without esophagitis; E78.5 Hyperlipidemia, unspecified; E07.9 Disorder of thyroid, unspecified; Z98.84 Bariatric surgery status; Z46.51 Encounter for fitting and adjustment of gastric lap band; Z87.891 Personal history of nicotine dependence
CPT/HCPCS: 99211

== ENCOUNTER → 2020-07-04 | Outpatient (CLI) | payer MEDICARE ==
[2020-07-04 14:27] VITALS: BP 121/83; PULSE 59; RESP 18; TEMP 97.9; BMI 38.7
--- NOTE | 2020-07-04 14:38 | P.HPBAR ---
Bariatric H&P - History & Physicial H&P Date: 07/04/20 History & Physicial: Visit/CC: follow up Patient initial contact: Initial weight: 101.264 kg Initial weight in pounds: 223.25 Height: 5 ft 0.5 in Initial BMI: 42.8 Last weight: Current weight: 91.626 kg Current weight in pounds: 202.00 Current BMI: 38.7 [place] body weight (based on NIH guidelines): 46.493 kg Excess body weight loss: 17.5% The patient is a 64 year-old F who presents for Bariatric Assessment. Patient presents today for sleeve gastrectomy follow-up. She is doing quite well. She continues to lose weight. She's had some GERD. Past Medical History Past Medical History: Asthma, Fibromyalgia, GERD/Reflux, Hyperlipidemia, Osteoarthritis (OA), Supraventricular Tachycardia (SVT), Thyroid Disorder Additional Past Medical History / Comment(s): hx migraines, hx heart murmur and "rapid heart rate", Degenerative Disc Disease, back pain, lap band History of Any Multi-Drug Resistant Organisms: None Reported Past Surgical History: Appendectomy, Bariatric Surgery, Cardiac Ablation, Cholecystectomy, Heart Catheterization, Hysterectomy, Joint Replacement, Orthopedic Surgery, Tonsillectomy, Tubal Ligation Additional Past Surgical History / Comment(s): lithotripsy, lap band with hiatal hernia repair - lap band removed on 06/06/20, shemar foot surgery, shmear shoulder surgery, shemar knee arthroscopy, D&C, shemar carpal tunnel, fx rt arm/humurus repair, oophorectomy, sinus surgery,laparoscopy x 3, left knee replaced, gastric sleeve done 06/06/[address] Jaimes Past Anesthesia/Blood Transfusion Reactions: Family History of Problems w/ Anesthesia, Postoperative Nausea & Vomiting (PONV) Additional Past Anesthesia/Blood Transfusion Reaction / Comm: mother- nausea Past Psychological History: Anxiety Smoking Status: Former smoker Past Alcohol Use History: Rare Additional Past Alcohol Use History / Comment(s): quit smoking 1999, smoked off & on since age of 13, always <ppd Past Drug Use History: None Reported - Past Family History Mother Family Medical History: Cancer, CVA/TIA Additional Family Medical History / Comment(s): CVA x 5 Surgical - Exam Vital Signs Temp Pulse Resp BP 97.9 F 59 L 18 121/83 07/04/20 14:18 07/04/20 14:18 07/04/20 14:18 07/04/20 14:18 - General well developed, well nourished, no distress - Eyes PERRL - ENT normal pinna - Neck no masses - Cardiovascular Rhythm: regular - Abdomen Abdomen: soft, non tender Bariatric Assessment & Plan Plan: Status post sleeve gastrectomy. Patient did quite well. Her GERD is minimal will be observed. Bariatric Checklist Checklist: Plan: Checklist: EGD: 1. Hiatal hernia: 2. H. Pylori: HgbA1c: Vitamin D: Smoking: Former smoker Primary care physician referral: adrian Psychiatry clearance: Cardiology clearance: Sleep study: Diet journal: VTE risk score: VTE risk level: Rehab needs at discharge:
[2020-07-04 15:47] LABS: HCT 42.6 % (34.0-46.0); HGB 14.2 gm/dL (11.4-16.0); MCH 29.6 pg (25.0-35.0); MCHC 33.3 g/dL (31.0-37.0); MCV 88.8 fL (80.0-100.0); Mean Platelet Volume 8.8; Platelet Count 250 k/uL (150-450); RDW 14.4 % (11.5-15.5)
[2020-07-05 11:24] LABS: % Iron Saturation 27.31 (12.00-45.00); ALT 35 U/L (8-44); AST 41 U/L (13-35); African American GFR (CKD) 61.9 (60.0-200.0); Albumin/Globulin Ratio 1.69 (1.60-3.17); Alkaline Phosphatase 118 U/L (41-126); BUN/Creat Ratio 14.55 Ratio (12.00-20.00); Calcium 9.7 mg/dL (8.7-10.3); Carbon Dioxide 22.4 mmol/L (21.6-31.8); Chloride 111 mmol/L (96-109); Globulin 2.6 g/dL (1.6-3.3); Glucose 154 mg/dL (70-110); Iron 71 ug/dL (50-170); Magnesium 1.7 mg/dL (1.5-2.4); Non-African American GFR(CKD) 53.4 (60.0-200.0); Potassium 4.3 mmol/L (3.5-5.5); Sodium 148 mmol/L (135-145); Total Bilirubin 0.5 mg/dL (0.3-1.2); Total Iron Binding Capacity 260 ug/dL (228-460)
[2020-07-05 11:35] LABS: Ferritin 149.2 ng/mL (10.0-291.0); Folate, Serum 3.8 ng/mL
[2020-07-05 12:00] LABS: Vitamin B12 >4000.0 pg/mL (211-911)
[2020-07-05 12:24] LABS: Zinc, Serum 95 ug/dL (60-130)
[2020-07-06 06:45] LABS: Vit B1(Thiamine) 58 ug/L (38-122)
[2020-07-06 08:38] LABS: Vitamin A 48 ug/dL (38-106)
== END ==
LOC: BARWHC3 13:58
PROVIDERS: ATTEND Surgery
DX: Z09 Encounter for follow-up examination after completed treatment for conditions other than malignant neoplasm (principal); Z98.84 Bariatric surgery status; K21.9 Gastro-esophageal reflux disease without esophagitis; J45.909 Unspecified asthma, uncomplicated; E78.5 Hyperlipidemia, unspecified; M19.90 Unspecified osteoarthritis, unspecified site; F41.9 Anxiety disorder, unspecified; Z87.891 Personal history of nicotine dependence
CPT/HCPCS: 84255; 84425; 80053; 82607; 82728; 82746; 83540; 83550; 83735; 84443; 84590; 84630; 85027; 82306; 36415; G0463; 99211

== ENCOUNTER → 2020-08-08 | Outpatient (CLI) | payer MEDICARE ==
[2020-08-08 13:23] VITALS: BP 124/72; PULSE 61; RESP 16; TEMP 97.8; BMI 37.6
--- NOTE | 2020-08-16 12:43 | P.HPBAR ---
Bariatric H&P - History & Physicial H&P Date: 08/08/20 History & Physicial: Visit/CC: F/U Patient initial contact: Initial weight: 101.264 kg Initial weight in pounds: 223.25 Height: 5 ft 0.5 in Initial BMI: 42.8 Last weight: Current weight: 88.904 kg Current weight in pounds: 196.00 Current BMI: 37.6 [place] body weight (based on NIH guidelines): 46.493 kg Excess body weight loss: 22.5% The patient is a 65 year-old F who presents for Bariatric Assessment. Patient presents today for sleeve gastric follow-up. She's had some mild GERD. Past Medical History Past Medical History: Asthma, Fibromyalgia, GERD/Reflux, Hyperlipidemia, Osteoarthritis (OA), Supraventricular Tachycardia (SVT), Thyroid Disorder Additional Past Medical History / Comment(s): hx migraines, hx heart murmur and "rapid heart rate", Degenerative Disc Disease, back pain, lap band History of Any Multi-Drug Resistant Organisms: None Reported Past Surgical History: Appendectomy, Bariatric Surgery, Cardiac Ablation, Cholecystectomy, Heart Catheterization, Hysterectomy, Joint Replacement, Orthopedic Surgery, Tonsillectomy, Tubal Ligation Additional Past Surgical History / Comment(s): lithotripsy, lap band with hiatal hernia repair - lap band removed on 06/06/20, shemar foot surgery, shemar shoulder surgery, shemar knee arthroscopy, D&C, shemar carpal tunnel, fx rt arm/humurus repair, oophorectomy, sinus surgery,laparoscopy x 3, left knee replaced, gastric sleeve done 06/06/[address] Jaimes Past Anesthesia/Blood Transfusion Reactions: Family History of Problems w/ Anesthesia, Postoperative Nausea & Vomiting (PONV) Additional Past Anesthesia/Blood Transfusion Reaction / Comm: mother- nausea Past Psychological History: Anxiety Smoking Status: Former smoker Past Alcohol Use History: Rare Additional Past Alcohol Use History / Comment(s): quit smoking 1999, smoked off & on since age of 13, always <ppd Past Drug Use History: None Reported - Past Family History Mother Family Medical History: Cancer, CVA/TIA Additional Family Medical History / Comment(s): CVA x 5 Surgical - Exam Vital Signs Temp Pulse Resp BP 97.8 F 61 16 124/72 08/08/20 13:20 08/08/20 13:20 08/08/20 13:20 08/08/20 13:20 - General well developed, well nourished, no distress - Eyes PERRL - ENT normal pinna - Neck no masses - Respiratory normal expansion - Cardiovascular Rhythm: regular - Abdomen Abdomen: soft, non tender Bariatric Assessment & Plan Plan: Status post sleeve yesterday. Patient is minimal old be observed. She'll follow-up in 4 weeks. Bariatric Checklist Checklist: Plan: Checklist: EGD: 1. Hiatal hernia: 2. H. Pylori: HgbA1c: Vitamin D: Smoking: Former smoker Primary care physician referral: adrian Psychiatry clearance: Cardiology clearance: Sleep study: Diet journal: VTE risk score: VTE risk level: Rehab needs at discharge:
== END ==
LOC: BARWHC3 13:03
PROVIDERS: ATTEND Surgery
DX: Z09 Encounter for follow-up examination after completed treatment for conditions other than malignant neoplasm (principal); K21.9 Gastro-esophageal reflux disease without esophagitis; Z98.84 Bariatric surgery status; J45.909 Unspecified asthma, uncomplicated; E78.5 Hyperlipidemia, unspecified; M19.90 Unspecified osteoarthritis, unspecified site; F41.9 Anxiety disorder, unspecified; Z87.891 Personal history of nicotine dependence; Z88.0 Allergy status to penicillin; Z88.5 Allergy status to narcotic agent; Z88.9 Allergy status to unspecified drugs, medicaments and biological substances; Z91.041 Radiographic dye allergy status
CPT/HCPCS: 99211

== ENCOUNTER → 2020-09-08 | Outpatient (CLI) | payer MEDICARE ==
--- NOTE | 2020-09-12 14:27 | MM ---
Reason for exam: screening (asymptomatic). Last mammogram was performed 4 years and 8 months ago. History: Patient is postmenopausal. Family history of breast cancer in mother and breast cancer in paternal aunt. Took hormonal contraceptives for 4 years. Took estrogen for 4 years. Physical Findings: A clinical breast exam by your physician is recommended on an annual basis and results should be correlated with mammographic findings. MG 3D Screening Mammo W/Cad Bilateral CC and MLO view(s) were taken. Prior study comparison: December 26, 2015, mammogram, performed at [facility]. December 23, 2014, mammogram, performed at [facility]. There are scattered fibroglandular densities. Left new nodule lower inner anterior depth. ASSESSMENT: Incomplete: need additional imaging evaluation, BI-RAD 0 RECOMMENDATION: Special view mammogram of the left breast. If lesion persists on supplemental views, image directed ultrasound is recommended. [facility] will attempt to contact patient to return for supplemental views and ultrasound if indicated.
== END | disposition home or self-care (01) ==
LOC: RADMAMWWP 14:58
PROVIDERS: ATTEND Internal Medicine Geriatric Medicine
DX: Z12.31 Encounter for screening mammogram for malignant neoplasm of breast (principal); Z78.0 Asymptomatic menopausal state; Z80.3 Family history of malignant neoplasm of breast; Z79.3 Long term (current) use of hormonal contraceptives
CPT/HCPCS: 77063; 77067

== ENCOUNTER → 2020-09-12 | Outpatient (CLI) | payer MEDICARE ==
[2020-09-12 13:30] VITALS: BP 142/86; PULSE 56; RESP 16; TEMP 97.8; BMI 37.3
[2020-09-12 14:44] LABS: HCT 44.5 % (34.0-46.0); HGB 14.4 gm/dL (11.4-16.0); MCH 28.1 pg (25.0-35.0); MCHC 32.2 g/dL (31.0-37.0); MCV 87.3 fL (80.0-100.0); Mean Platelet Volume 8.7; Platelet Count 306 k/uL (150-450); RDW 13.5 % (11.5-15.5); WBC 6.9 k/uL (3.8-10.6)
--- NOTE | 2020-09-12 16:34 | P.HPBAR ---
Bariatric H&P - History & Physicial H&P Date: 09/12/20 History & Physicial: Visit/CC: f/u Patient initial contact: Initial weight: 101.264 kg Initial weight in pounds: 223.25 Height: 5 ft 0.5 in Initial BMI: 42.8 Last weight: Current weight: 87.997 kg Current weight in pounds: 194.00 Current BMI: 37.3 [place] body weight (based on NIH guidelines): 46.493 kg Excess body weight loss: 24.2% The patient is a 65 year-old F who presents for Bariatric Assessment. Patient presents for sleeve follow-up. She feels well. She's had some mild GERD. Past Medical History Past Medical History: Asthma, Fibromyalgia, GERD/Reflux, Hyperlipidemia, Osteo arthritis (OA), Supraventricular Tachycardia (SVT), Thyroid Disorder Additional Past Medical History / Comment(s): hx migraines, hx heart murmur and "rapid heart rate", Degenerative Disc Disease, back pain, lap band History of Any Multi-Drug Resistant Organisms: None Reported Past Surgical History: Appendectomy, Bariatric Surgery, Cardiac Ablation, Cholecystectomy, Heart Catheterization, Hysterectomy, Joint Replacement, O rthopedic Surgery, Tonsillectomy, Tubal Ligation Additional Past Surgical History / Comment(s): lithotripsy, lap band with hiatal hernia repair - lap band removed on 06/06/20, shemar foot surgery, shemar shoulder surgery, shemar knee arthroscopy, D&C, shemar carpal tunnel, fx rt arm/humurus repair, oophorectomy, sinus surgery,laparoscopy x 3, left knee replaced, gastric sleeve done 06/06/[address] Jaimes Past Anesthesia/Blood Transfusion Reactions: Family History of Problems w/ Anesthesia, Postoperative Nausea & Vomiting (PONV) Additional Past Anesthesia/Blood Transfusion Reaction / Comm: mother- nausea Past Psychological History: Anxiety Smoking Status: Former smoker Past Alcohol Use History: Rare Additional Past Alcohol Use History / Comment(s): quit smoking 1999, smoked off & on since age of 13, always <ppd Past Drug Use History: None Reported - Past Family History Mother Family Medical History: Cancer, CVA/TIA Additional Family Medical History / Comment(s): CVA x 5 Surgical - Exam Vital Signs Temp Pulse Resp BP 97.8 F 56 L 16 142/86 09/12/20 13:27 09/12/20 13:27 09/12/20 13:27 09/12/20 13:27 - General well developed, well nourished, no distress - Eyes PERRL - ENT normal pinna - Neck no masses - Respiratory normal expansion - Cardiovascular Rhythm: regular - Abdomen Abdomen: soft, non tender Results - Labs 09/12/20 13:53 Bariatric Assessment & Plan Plan: Status post sleeve yesterday. Patient is minimal old observed. She'll follow- up in 4 weeks. Bariatric Checklist Checklist: Plan: Checklist: EGD: 1. Hiatal hernia: 2. H. Pylori: HgbA1c: Vitamin D: Smoking: Former smoker Primary care physician referral: adrian Psychiatry clearance: Cardiology clearance: Sleep study: Diet journal: VTE risk score: VTE risk level: Rehab needs at discharge:
[2020-09-12 18:58] LABS: % Iron Saturation 22.66 (12.00-45.00); ALT 20 U/L (8-44); AST 27 U/L (13-35); African American GFR (CKD) 68.9 (60.0-200.0); Albumin/Globulin Ratio 1.72 (1.60-3.17); Alkaline Phosphatase 125 U/L (41-126); Calcium 9.8 mg/dL (8.7-10.3); Carbon Dioxide 27.6 mmol/L (21.6-31.8); Chloride 112 mmol/L (96-109); Globulin 2.5 g/dL (1.6-3.3); Glucose 135 mg/dL (70-110); Iron 75 ug/dL (50-170); Magnesium 1.8 mg/dL (1.5-2.4); Non-African American GFR(CKD) 59.5 (60.0-200.0); Sodium 146 mmol/L (135-145); Total Bilirubin 0.4 mg/dL (0.3-1.2); Total Iron Binding Capacity 331 ug/dL (228-460); Total Protein 6.8 g/dL (6.2-8.2)
[2020-09-12 19:08] LABS: Ferritin 39.6 ng/mL (10.0-291.0)
[2020-09-12 19:43] LABS: Folate, Serum >24.0 ng/mL
[2020-09-13 12:32] LABS: Zinc, Serum 77 ug/dL (60-130)
[2020-09-14 06:32] LABS: Vit B1(Thiamine) 58 ug/L (38-122); Vitamin A 51 ug/dL (38-106)
== END ==
LOC: BARWHC3 12:52
PROVIDERS: ATTEND Surgery
DX: Z09 Encounter for follow-up examination after completed treatment for conditions other than malignant neoplasm (principal); K21.9 Gastro-esophageal reflux disease without esophagitis; J45.909 Unspecified asthma, uncomplicated; E78.5 Hyperlipidemia, unspecified; M19.90 Unspecified osteoarthritis, unspecified site; F41.9 Anxiety disorder, unspecified; Z98.84 Bariatric surgery status; Z87.891 Personal history of nicotine dependence
CPT/HCPCS: 84255; 84425; 80053; 82607; 82728; 82746; 83540; 83550; 83735; 84443; 84590; 84630; 85027; 82306; 97803; 36415; G0463; 99211

== ENCOUNTER → 2020-09-28 | Outpatient (CLI) | payer MEDICARE ==
--- NOTE | 2020-09-30 13:44 | MM ---
Reason for exam: additional evaluation requested from abnormal screening. Last mammogram was performed 1 month ago. History: Patient is postmenopausal. Family history of breast cancer in mother and breast cancer in paternal aunt. Took hormonal contraceptives for 4 years. Took estrogen for 4 years. Physical Findings: Nurse did not find any significant physical abnormalities on exam. MG 3D Work Up W/Cad LT Spot compression CC, spot compression MLO, and LM view(s) were taken of the left breast. Prior study comparison: September 08, 2020, bilateral MG 3d screening mammo w/cad. December 26, 2015, mammogram, performed at [facility]. The breast tissue is heterogeneously dense. This may lower the sensitivity of mammography. Finding: There is a typically benign 5 mm equal density (isodense), circumscribed round mass located 3 cm from the nipple in the lower inner quadrant, anterior position of the left breast. New finding since September 08, 2020 and December 26, 2015. These results were verbally communicated with the patient and result sheet given to the patient on 09/28/20. ASSESSMENT: Incomplete: need additional imaging evaluation, BI-RAD 0 RECOMMENDATION: Ultrasound of the left breast.
--- NOTE | 2020-09-30 13:45 | USB ---
Reason for exam: additional evaluation requested from abnormal screening. History: Patient is postmenopausal. Family history of breast cancer in mother and breast cancer in paternal aunt. Took hormonal contraceptives for 4 years. Took estrogen for 4 years. US Breast Workup Limited LT Left limited breast ultrasound including focal area of concern, retroareolar and axilla demonstrates a 0.9 x 0.4 x 0.8cm cystic cluster at 6 o'clock. These results were verbally communicated with the patient and result sheet given to the patient on 09/28/20. ASSESSMENT: Probably benign, BI-RAD 3 RECOMMENDATION: Follow-up diagnostic mammogram and ultrasound of the left breast in 6 months.
== END | disposition home or self-care (01) ==
LOC: RADMAMWWP 09:59
PROVIDERS: ATTEND Internal Medicine Geriatric Medicine
DX: R92.8 Other abnormal and inconclusive findings on diagnostic imaging of breast (principal); Z80.3 Family history of malignant neoplasm of breast
CPT/HCPCS: 77065; 76642; G0279; 77061

== ENCOUNTER → 2020-10-17 | Outpatient (CLI) | payer MEDICARE ==
[2020-10-17 13:56] VITALS: BP 123/76; PULSE 52; RESP 18; TEMP 97.6; BMI 36.6
--- NOTE | 2020-10-17 15:43 | P.HPBAR ---
Bariatric H&P - History & Physicial H&P Date: 10/17/20 History & Physicial: Visit/CC: follow up Patient initial contact: Initial weight: 101.264 kg Initial weight in pounds: 223.25 Height: 5 ft 0.5 in Initial BMI: 42.8 Last weight: Current weight: 86.636 kg Current weight in pounds: 191.00 Current BMI: 36.6 [place] body weight (based on NIH guidelines): 46.493 kg Excess body weight loss: 26.7% The patient is a 65 year-old F who presents for Bariatric Assessment. Patient presents today for sleeve follow-up. She's had some mild complete of GERD. Past Medical History Past Medical History: Asthma, Fibromyalgia, GERD/Reflux, Hyperlipidemia, Osteoarthritis (OA), Supraventricular Tachycardia (SVT), Thyroid Disorder Additional Past Medical History / Comment(s): hx migraines, hx heart murmur and "rapid heart rate", Degenerative Disc Disease, back pain, lap band History of Any Multi-Drug Resistant Organisms: None Reported Past Surgical History: Appendectomy, Bariatric Surgery, Cardiac Ablation, Cholecystectomy, Heart Catheterization, Hysterectomy, Joint Replacement, Orthopedic Surgery, Tonsillectomy, Tubal Ligation Additional Past Surgical History / Comment(s): lithotripsy, lap band with hiatal hernia repair - lap band removed on 06/06/20, shemar foot surgery, shemar shoulder surgery, shemar knee arthroscopy, D&C, shemar carpal tunnel, fx rt arm/humurus repair, oophorectomy, sinus surgery,laparoscopy x 3, left knee replaced, gastric sleeve done 06/06/[address] Jaimes Past Anesthesia/Blood Transfusion Reactions: Family History of Problems w/ Anesthesia, Postoperative Nausea & Vomiting (PONV) Additional Past Anesthesia/Blood Transfusion Reaction / Comm: mother- nausea Smoking Status: Former smoker - Past Family History Mother Family Medical History: Cancer, CVA/TIA Additional Family Medical History / Comment(s): CVA x 5 Surgical - Exam Vital Signs Temp Pulse Resp BP 97.6 F 52 L 18 123/76 10/17/20 13:54 10/17/20 13:54 10/17/20 13:54 10/17/20 13:54 - General well developed, well nourished, no distress - Eyes PERRL - ENT normal pinna - Neck no masses - Respiratory normal expansion - Cardiovascular Rhythm: regular - Abdomen Abdomen: soft, non tender Bariatric Assessment & Plan Plan: Status post sleeve gastrectomy. Patient is minimal will be observed. She'll follow-up in 4 weeks. Bariatric Checklist Checklist: Plan: Checklist: EGD: 1. Hiatal hernia: 2. H. Pylori: HgbA1c: Vitamin D: Smoking: Former smoker Primary care physician referral: adrian Psychiatry clearance: Cardiology clearance: Sleep study: Diet journal: VTE risk score: VTE risk level: Rehab needs at discharge:
== END | disposition home or self-care (01) ==
LOC: BARWHC3 12:53
PROVIDERS: ATTEND Surgery
DX: Z09 Encounter for follow-up examination after completed treatment for conditions other than malignant neoplasm (principal); Z90.49 Acquired absence of other specified parts of digestive tract
CPT/HCPCS: 99211

== ENCOUNTER → 2020-12-05 | Outpatient (CLI) | payer MEDICARE ==
[2020-12-05 13:36] VITALS: BP 129/84; PULSE 65; RESP 18; TEMP 97.9; BMI 36.1
--- NOTE | 2020-12-05 16:54 | P.HPBAR ---
Bariatric H&P - History & Physicial H&P Date: 12/05/20 History & Physicial: Visit/CC: follow up Patient initial contact: Initial weight: 101.264 kg Initial weight in pounds: 223.25 Height: 5 ft 0.5 in Initial BMI: 42.8 Last weight: Current weight: 85.275 kg Current weight in pounds: 188.00 Current BMI: 36.1 [place] body weight (based on NIH guidelines): 46.493 kg Excess body weight loss: 29.1% The patient is a 65 year-old F who presents for Bariatric Assessment. Patient presents today for bariatric follow. She's had some minimal GERD. She denies any dysphagia Past Medical History Past Medical History: Asthma, Fibromyalgia, GERD/Reflux, Hyperlipidemia, Osteoarthritis (OA), Supraventricular Tachycardia (SVT), Thyroid Disorder Additional Past Medical History / Comment(s): hx migraines, hx heart murmur and "rapid heart rate", Degenerative Disc Disease, back pain, lap band History of Any Multi-Drug Resistant Organisms: None Reported Past Surgical History: Appendectomy, Bariatric Surgery, Cardiac Ablation, Cholecystectomy, Heart Catheterization, Hysterectomy, Joint Replacement, Orthopedic Surgery, Tonsillectomy, Tubal Ligation Additional Past Surgical History / Comment(s): lithotripsy, lap band with hiatal hernia repair - lap band removed on 06/06/20, shemar foot surgery, shemar shoulder surgery, shemar knee arthroscopy, D&C, shemar carpal tunnel, fx rt arm/humurus repair, oophorectomy, sinus surgery,laparoscopy x 3, left knee replaced, gastric sleeve done 06/06/[address] Jaimes Past Anesthesia/Blood Transfusion Reactions: Family History of Problems w/ Anesthesia, Postoperative Nausea & Vomiting (PONV) Additional Past Anesthesia/Blood Transfusion Reaction / Comm: mother- nausea Smoking Status: Former smoker - Past Family History Mother Family Medical History: Cancer, CVA/TIA Additional Family Medical History / Comment(s): CVA x 5 Surgical - Exam Vital Signs Temp Pulse Resp BP 97.9 F 65 18 129/84 12/05/20 13:30 12/05/20 13:30 12/05/20 13:30 12/05/20 13:30 - General well developed, well nourished, no distress - Eyes PERRL - ENT normal pinna - Neck no masses - Respiratory normal expansion - Cardiovascular Rhythm: regular - Abdomen Abdomen: soft, non tender Bariatric Assessment & Plan Plan: Status post sleeve gastrectomy. Patient is minimal will be observed she'll follow-up in 4 weeks. Bariatric Checklist Checklist: Plan: Checklist: EGD: 1. Hiatal hernia: 2. H. Pylori: HgbA1c: Vitamin D: Smoking: Former smoker Primary care physician referral: adrian Psychiatry clearance: Cardiology clearance: Sleep study: Diet journal: VTE risk score: VTE risk level: Rehab needs at discharge:
== END ==
LOC: BARWHC3 13:12
PROVIDERS: ATTEND Surgery
DX: E66.01 Morbid (severe) obesity due to excess calories (principal); J45.909 Unspecified asthma, uncomplicated; E78.5 Hyperlipidemia, unspecified; M19.90 Unspecified osteoarthritis, unspecified site; G43.909 Migraine, unspecified, not intractable, without status migrainosus; Z87.891 Personal history of nicotine dependence; Z98.84 Bariatric surgery status; Z71.3 Dietary counseling and surveillance; Z68.36 Body mass index [BMI] 36.0-36.9, adult; Z88.5 Allergy status to narcotic agent; Z88.0 Allergy status to penicillin; Z88.9 Allergy status to unspecified drugs, medicaments and biological substances; Z91.018 Allergy to other foods; Z91.041 Radiographic dye allergy status
CPT/HCPCS: 97803; G0463; 99211

== ENCOUNTER → 2020-12-06 | Outpatient (CLI) | payer MEDICARE ==
[2020-12-06 19:10] LABS: HCT 45.2 % (37.2-46.3); HGB 14.7 g/dL (12.0-15.0); MCH 28.5 pg (27.0-32.0); MCHC 32.5 g/dL (32.0-37.0); MCV 87.6 fL (80.0-97.0); Mean Platelet Volume 11.4 fL (9.5-12.2); Platelet Count 332 X 10*3/uL (140-440); RBC 5.16 X 10*6/uL (4.10-5.20); RDW 13.8 % (11.5-14.5)
[2020-12-07 10:47] LABS: % Iron Saturation 15.5 (12.00-45.00); Ferritin 61.7 ng/mL (10.0-291.0); Folate, Serum 13.8 ng/mL (4.40-31.00); Magnesium 1.8 mg/dL (1.5-2.4)
[2020-12-07 15:11] LABS: Zinc, Serum 98 ug/dL (60-130)
[2020-12-07 17:06] LABS: African American GFR (CKD) 62.8 (60.0-200.0); Albumin 4.4 g/dL (3.8-4.9); Albumin/Globulin Ratio 1.68 (1.60-3.17); Anion Gap 12.3 mmol/L (4.00-12.00); BUN/Creat Ratio 23.61 Ratio (12.00-20.00); Blood Urea Nitrogen 25.5 mg/dL (9.0-27.0); Calcium 9.9 mg/dL (8.7-10.3); Carbon Dioxide 22.5 mmol/L (21.6-31.8); Globulin 2.6 g/dL (1.6-3.3); Non-African American GFR(CKD) 54.2 (60.0-200.0); Potassium 4.5 mmol/L (3.5-5.5); Total Bilirubin 0.4 mg/dL (0.30-1.20)
[2020-12-08 06:22] LABS: Vitamin A 49 ug/dL (38-106)
[2020-12-08 08:59] LABS: Vit B1(Thiamine) 88 ug/L (38-122)
== END | disposition home or self-care (01) ==
LOC: LABWHC1 11:51
PROVIDERS: ATTEND Surgery
DX: T56.894A Toxic effect of other metals, undetermined, initial encounter (principal); D50.8 Other iron deficiency anemias; E66.01 Morbid (severe) obesity due to excess calories; E44.0 Moderate protein-calorie malnutrition; E55.9 Vitamin D deficiency, unspecified
CPT/HCPCS: 36415; 80053; 82306; 82607; 82728; 82746; 83540; 83550; 83735; 84255; 84425; 84443; 84590; 84630; 85027

== ENCOUNTER → 2021-01-16 | Outpatient (CLI) | payer MEDICARE ==
[2021-01-16 14:50] VITALS: BP 138/76; PULSE 61; TEMP 98.2; BMI 35.7
--- NOTE | 2021-01-17 12:45 | P.HPBAR ---
Bariatric H&P - History & Physicial H&P Date: 01/16/21 History & Physicial: Visit/CC: six month follow up Patient initial contact: Initial weight: 101.264 kg Initial weight in pounds: 223.25 Height: 5 ft 0.5 in Initial BMI: 42.8 Last weight: Current weight: 84.368 kg Current weight in pounds: 186.00 Current BMI: 35.7 [place] body weight (based on NIH guidelines): 46.493 kg Excess body weight loss: 30.8% The patient is a 65 year-old F who presents for Bariatric Assessment. Patient p resents today for gastric sleeve follow-up. She is doing fairly well. She's had some mild GERD. Past Medical History Past Medical History: Asthma, Fibromyalgia, GERD/Reflux, Hyperlipidemia, Osteoarthritis (OA), Supraventricular Tachycardia (SVT), Thyroid Disorder Additional Past Medical History / Comment(s): hx migraines, hx heart murmur and "rapid heart rate", Degenerative Disc Disease, back pain, lap band History of Any Multi-Drug Resistant Organisms: None Reported Past Surgical History: Appendectomy, Bariatric Surgery, Cardiac Ablation, Cholecystectomy, Heart Catheterization, Hysterectomy, Joint Replacement, Orthopedic Surgery, Tonsillectomy, Tubal Ligation Additional Past Surgical History / Comment(s): lithotripsy, lap band with hiatal hernia repair - lap band removed on 06/06/20, shemar foot surgery, shemar shoulder surgery, shemar knee arthroscopy, D&C, shemar carpal tunnel, fx rt arm/humurus repair, oophorectomy, sinus surgery,laparoscopy x 3, left knee replaced, gastric sleeve done 06/06/[address] Jaimes Past Anesthesia/Blood Transfusion Reactions: Family History of Problems w/ Anesthesia, Postoperative Nausea & Vomiting (PONV) Additional Past Anesthesia/Blood Transfusion Reaction / Comm: mother- nausea Past Psychological History: Anxiety Smoking Status: Former smoker Past Alcohol Use History: Rare Additional Past Alcohol Use History / Comment(s): quit smoking 1999, smoked off & on since age of 13, always <ppd Past Drug Use History: None Reported - Past Family History Mother Family Medical History: Cancer, CVA/TIA Additional Family Medical History / Comment(s): CVA x 5 Surgical - Exam Vital Signs Temp Pulse BP 98.2 F 61 138/76 01/16/21 14:43 01/16/21 14:43 01/16/21 14:43 - General well developed, well nourished, no distress - Eyes PERRL - ENT normal pinna - Neck no masses - Respiratory normal expansion - Cardiovascular Rhythm: regular - Abdomen Abdomen: soft, non tender Bariatric Assessment & Plan Plan: Status post sleeve gastrectomy. Patient's urine is minimal and will be observed. She'll follow-up in 4 weeks. Bariatric Checklist Checklist: Plan: Checklist: EGD: 1. Hiatal hernia: 2. H. Pylori: HgbA1c: Vitamin D: Smoking: Former smoker Primary care physician referral: adrian Psychiatry clearance: Cardiology clearance: Sleep study: Diet journal: VTE risk score: VTE risk level: Rehab needs at discharge:
== END ==
LOC: BARWHC3 13:24
PROVIDERS: ATTEND Surgery
DX: Z09 Encounter for follow-up examination after completed treatment for conditions other than malignant neoplasm (principal); K21.9 Gastro-esophageal reflux disease without esophagitis; J45.909 Unspecified asthma, uncomplicated; E78.5 Hyperlipidemia, unspecified; M19.90 Unspecified osteoarthritis, unspecified site; F41.9 Anxiety disorder, unspecified; Z98.84 Bariatric surgery status; Z87.891 Personal history of nicotine dependence; Z88.0 Allergy status to penicillin; Z88.5 Allergy status to narcotic agent; Z91.041 Radiographic dye allergy status; Z88.9 Allergy status to unspecified drugs, medicaments and biological substances; Z88.8 Allergy status to other drugs, medicaments and biological substances
CPT/HCPCS: 99211

== ENCOUNTER → 2021-02-13 | Outpatient (CLI) | payer MEDICARE ==
[2021-02-13 13:59] VITALS: BP 138/85; PULSE 69; TEMP 97.8; BMI 35.5
--- NOTE | 2021-02-13 14:51 | P.HPBAR ---
Bariatric H&P - History & Physicial H&P Date: 02/13/21 History & Physicial: Visit/CC: eight month follow up Patient initial contact: Initial weight: 101.264 kg Initial weight in pounds: 223.25 Height: 5 ft 0.5 in Initial BMI: 42.8 Last weight: Current weight: 83.915 kg Current weight in pounds: 185.00 Current BMI: 35.5 [place] body weight (based on NIH guidelines): 46.493 kg Excess body weight loss: 31.6% The patient is a 65 year-old F who presents for Bariatric Assessment. Patient presents for follow-up. She is status post sleeve gastrectomy. She's had some minimal GERD. Her weight loss has been stable. Past Medical History Past Medical History: Asthma, Fibromyalgia, GERD/Reflux, Hyperlipidemia, Osteoarthritis (OA), Supraventricular Tachycardia (SVT), Thyroid Disorder Additional Past Medical History / Comment(s): hx migraines, hx heart murmur and "rapid heart rate", Degenerative Disc Disease, back pain, lap band History of Any Multi-Drug Resistant Organisms: None Reported Past Surgical History: Appendectomy, Bariatric Surgery, Cardiac Ablation, Cholecystectomy, Heart Catheterization, Hysterectomy, Joint Replacement, Orthopedic Surgery, Tonsillectomy, Tubal Ligation Additional Past Surgical History / Comment(s): lithotripsy, lap band with hiatal hernia repair - lap band removed on 06/06/20, shemar foot surgery, shemar shoulder surgery, shemar knee arthroscopy, D&C, shemar carpal tunnel, fx rt arm/humurus repair, oophorectomy, sinus surgery,laparoscopy x 3, left knee replaced, gastric sleeve done 06/06/[address] Jaimes Past Anesthesia/Blood Transfusion Reactions: Family History of Problems w/ Anesthesia, Postoperative Nausea & Vomiting (PONV) Additional Past Anesthesia/Blood Transfusion Reaction / Comm: mother- nausea Smoking Status: Former smoker - Past Family History Mother Family Medical History: Cancer, CVA/TIA Additional Family Medical History / Comment(s): CVA x 5 Surgical - Exam Vital Signs Temp Pulse BP 97.8 F 69 138/85 02/13/21 13:56 02/13/21 13:56 02/13/21 13:56 - General well developed, well nourished, no distress - Eyes PERRL - ENT normal pinna - Neck no masses - Respiratory normal expansion - Cardiovascular Rhythm: regular - Abdomen Abdomen: soft, non tender Bariatric Assessment & Plan Plan: Status post sleeve gastrectomy. Patient's girth is minimal and will be observed. She will follow-up in 2 months. Bariatric Checklist Checklist: Plan: Checklist: EGD: 1. Hiatal hernia: 2. H. Pylori: HgbA1c: Vitamin D: Smoking: Former smoker Primary care physician referral: adrian Psychiatry clearance: Cardiology clearance: Sleep study: Diet journal: VTE risk score: VTE risk level: Rehab needs at discharge:
== END ==
LOC: BARWHC3 13:30
PROVIDERS: ATTEND Surgery
DX: Z09 Encounter for follow-up examination after completed treatment for conditions other than malignant neoplasm (principal); J45.909 Unspecified asthma, uncomplicated; K21.9 Gastro-esophageal reflux disease without esophagitis; E78.5 Hyperlipidemia, unspecified; G43.909 Migraine, unspecified, not intractable, without status migrainosus; Z98.84 Bariatric surgery status; Z87.891 Personal history of nicotine dependence; Z88.5 Allergy status to narcotic agent; Z91.041 Radiographic dye allergy status; Z88.0 Allergy status to penicillin; Z91.09 Other allergy status, other than to drugs and biological substances
CPT/HCPCS: 99211

== ENCOUNTER → 2021-04-04 | Outpatient (CLI) | payer MEDICARE ==
--- NOTE | 2021-04-05 09:15 | MM ---
Reason for exam: follow-up at short interval from prior study. Last mammogram was performed 6 months ago. History: Patient is postmenopausal. Family history of breast cancer in cousin, breast cancer in mother, and breast cancer in paternal aunt. Took hormonal contraceptives for 4 years. Took estrogen for 4 years. Physical Findings: Nurse did not find any significant physical abnormalities on exam. MG 3D Diag Mammo W/Cad LT CC and MLO view(s) were taken of the left breast. Prior study comparison: September 08, 2020, bilateral MG 3d screening mammo w/cad. The breast tissue is heterogeneously dense. This may lower the sensitivity of mammography. There are benign appearing round calcifications bilaterally. There is chronic nodularity in the left breast. There is no new dominant lesion. These results were verbally communicated with the patient and result sheet given to the patient on 04/04/21. ASSESSMENT: Benign, BI-RAD 2 RECOMMENDATION: Return to routine screening mammogram schedule for both breasts. Back on schedule for September 2021.
--- NOTE | 2021-04-05 09:16 | USB ---
Reason for exam: follow-up at short interval from prior study. History: Patient is postmenopausal. Family history of breast cancer in cousin, breast cancer in mother, and breast cancer in paternal aunt. Took hormonal contraceptives for 4 years. Took estrogen for 4 years. US Breast Limited LT Left limited breast ultrasound including focal area of concern, retroareolar and axilla demonstrates a 0.8 x 0.8 x 0.5cm cystic lesion at 7 o'clock, benign thin walled cyst slightly lobulated margins, fairly stable from prior. These results were verbally communicated with the patient and result sheet given to the patient on 04/04/21. ASSESSMENT: Benign, BI-RAD 2 RECOMMENDATION: Return to routine screening mammogram schedule for both breasts. Back on schedule for September 2021.
== END | disposition home or self-care (01) ==
LOC: RADMAMWWP 14:10
PROVIDERS: ATTEND Internal Medicine Geriatric Medicine
DX: R92.8 Other abnormal and inconclusive findings on diagnostic imaging of breast (principal); Z78.0 Asymptomatic menopausal state; Z80.3 Family history of malignant neoplasm of breast
CPT/HCPCS: 77065; 76642; G0279; 77061

== ENCOUNTER → 2021-04-10 | Outpatient (CLI) | payer MEDICARE ==
[2021-04-10 14:13] VITALS: BP 132/87; PULSE 85; TEMP 98.2; BMI 36.1
--- NOTE | 2021-04-10 14:43 | P.HPBAR ---
Bariatric H&P - History & Physicial H&P Date: 04/10/21 History & Physicial: Visit/CC: nine month follow up Patient initial contact: Initial weight: 101.264 kg Initial weight in pounds: 223.25 Height: 5 ft Initial BMI: 43.6 Last weight: Current weight: 83.915 kg Current weight in pounds: 185.00 Current BMI: 36.1 [place] body weight (based on NIH guidelines): 45.359 kg Excess body weight loss: 31.0% The patient is a 65 year-old F who presents for Bariatric Assessment. Patient presents today for bariatric follow. She's had some mild GERD. Past Medical History Past Medical History: Asthma, Fibromyalgia, GERD/Reflux, Hyperlipidemia, Osteoa rthritis (OA), Supraventricular Tachycardia (SVT), Thyroid Disorder Additional Past Medical History / Comment(s): hx migraines, hx heart murmur and "rapid heart rate", Degenerative Disc Disease, back pain, lap band History of Any Multi-Drug Resistant Organisms: None Reported Past Surgical History: Appendectomy, Bariatric Surgery, Cardiac Ablation, Cholecystectomy, Heart Catheterization, Hysterectomy, Joint Replacement, Orthopedic Surgery, Tonsillectomy, Tubal Ligation Additional Past Surgical History / Comment(s): lithotripsy, lap band with hiatal hernia repair - lap band removed on 06/06/20, shemar foot surgery, shemar shoulder surgery, shemar knee arthroscopy, D&C, shemar carpal tunnel, fx rt arm/humurus repair, oophorectomy, sinus surgery,laparoscopy x 3, left knee replaced, gastric sleeve done 06/06/[address] Jaimes Past Anesthesia/Blood Transfusion Reactions: Family History of Problems w/ Anesthesia, Postoperative Nausea & Vomiting (PONV) Additional Past Anesthesia/Blood Transfusion Reaction / Comm: mother- nausea Smoking Status: Former smoker - Past Family History Mother Family Medical History: Cancer, CVA/TIA Additional Family Medical History / Comment(s): CVA x 5 Surgical - Exam Vital Signs Temp Pulse BP 98.2 F 85 132/87 04/10/21 14:09 04/10/21 14:09 04/10/21 14:09 - General well developed, well nourished, no distress - Eyes PERRL - ENT normal pinna, normal nares - Neck no masses - Respiratory normal expansion - Cardiovascular Rhythm: regular - Abdomen Abdomen: soft, non tender Bariatric Assessment & Plan Plan: Resolving morbid piece. Patient's GERD is minimal observed. She'll follow-up in 4 weeks. Bariatric Checklist Checklist: Plan: Checklist: EGD: 1. Hiatal hernia: 2. H. Pylori: HgbA1c: Vitamin D: Smoking: Former smoker Primary care physician referral: adrian Psychiatry clearance: Cardiology clearance: Sleep study: Diet journal: VTE risk score: VTE risk level: Rehab needs at discharge:
[2021-04-11 00:50] LABS: HCT 44.3 % (37.2-46.3); HGB 14.2 g/dL (12.0-15.0); MCHC 32.1 g/dL (32.0-37.0); MCV 87.4 fL (80.0-97.0); Mean Platelet Volume 11.3 fL (9.5-12.2); NRBC Per 100 WBC 0 /100 WBCS (0.0-0.0); Platelet Count 348 X 10*3/uL (140-440); RBC 5.07 X 10*6/uL (4.10-5.20); RDW 13.1 % (11.5-14.5)
[2021-04-11 01:04] LABS: % Iron Saturation 22.43 (12.00-45.00); ALT 21 U/L (8-44); AST 20 U/L (13-35); African American GFR (CKD) 74.4 (60.0-200.0); Albumin 4.3 g/dL (3.8-4.9); Albumin/Globulin Ratio 1.44 (1.60-3.17); Alkaline Phosphatase 131 U/L (41-126); BUN/Creat Ratio 22.36 Ratio (12.00-20.00); Calcium 9.9 mg/dL (8.7-10.3); Chloride 109 mmol/L (96-109); Glucose 109 mg/dL (70-110); Iron 70 ug/dL (50-170); Magnesium 1.8 mg/dL (1.5-2.4); Non-African American GFR(CKD) 64.2 (60.0-200.0); Potassium 4.2 mmol/L (3.5-5.5); Sodium 144 mmol/L (135-145); Total Iron Binding Capacity 311 ug/dL (228-460); Total Protein 7.3 g/dL (6.2-8.2)
[2021-04-11 04:06] LABS: Folate, Serum >20.00 ng/mL (4.40-31.00)
[2021-04-11 12:08] LABS: Zinc, Serum 96 ug/dL (60-130)
[2021-04-12 10:25] LABS: Vit B1(Thiamine) 68 ug/L (38-122)
[2021-04-12 11:19] LABS: Vitamin A 61 ug/dL (38-106)
[2021-04-13 08:32] LABS: Selenium 132 mcg/L (63-160)
== END ==
LOC: BARWHC3 13:44
PROVIDERS: ATTEND Surgery
DX: E66.01 Morbid (severe) obesity due to excess calories (principal); K21.9 Gastro-esophageal reflux disease without esophagitis; J45.909 Unspecified asthma, uncomplicated; E78.5 Hyperlipidemia, unspecified; M19.90 Unspecified osteoarthritis, unspecified site; G43.909 Migraine, unspecified, not intractable, without status migrainosus; Z87.891 Personal history of nicotine dependence; Z98.84 Bariatric surgery status; Z68.36 Body mass index [BMI] 36.0-36.9, adult; Z88.0 Allergy status to penicillin; Z91.041 Radiographic dye allergy status; Z88.9 Allergy status to unspecified drugs, medicaments and biological substances; Z88.5 Allergy status to narcotic agent; Z91.02 Food additives allergy status
CPT/HCPCS: 84255; 84425; 80053; 82607; 82728; 82746; 83540; 83550; 83735; 84443; 84590; 84630; 85027; 82306; G0463; 99211

== ENCOUNTER → 2021-06-12 | Outpatient (CLI) | payer MEDICARE ==
[2021-06-12 14:08] VITALS: BP 125/76; PULSE 58; RESP 16; TEMP 97.8; BMI 36.2
[2021-06-12 22:42] LABS: HCT 42.6 % (37.2-46.3); HGB 13.5 g/dL (12.0-15.0); MCH 28.1 pg (27.0-32.0); MCHC 31.7 g/dL (32.0-37.0); MCV 88.8 fL (80.0-97.0); Mean Platelet Volume 10.4 fL (9.5-12.2); NRBC Per 100 WBC 0 /100 WBCS (0.0-0.0); Platelet Count 347 X 10*3/uL (140-440); WBC 6.83 X 10*3/uL (4.50-10.00)
[2021-06-13 00:49] LABS: % Iron Saturation 14.77 (12.00-45.00); ALT 27 U/L (8-44); AST 22 U/L (13-35); African American GFR (CKD) 75.3 (60.0-200.0); Albumin 4.3 g/dL (3.8-4.9); Albumin/Globulin Ratio 1.59 (1.60-3.17); Alkaline Phosphatase 141 U/L (41-126); BUN/Creat Ratio 21.72 Ratio (12.00-20.00); Blood Urea Nitrogen 20.2 mg/dL (9.0-27.0); Calcium 9.4 mg/dL (8.7-10.3); Carbon Dioxide 21.3 mmol/L (20.0-27.5); Chloride 110 mmol/L (96-109); Ferritin 73.5 ng/mL (10.0-291.0); Globulin 2.7 g/dL (1.6-3.3); Glucose 101 mg/dL (70-110); Iron 46 ug/dL (50-170); Magnesium 1.8 mg/dL (1.5-2.4); Potassium 3.8 mmol/L (3.5-5.5); Sodium 146 mmol/L (135-145); Total Bilirubin <0.15 mg/dL (0.30-1.20); Total Iron Binding Capacity 309 ug/dL (228-460); Total Protein 6.9 g/dL (6.2-8.2)
[2021-06-13 13:41] LABS: Zinc, Serum 76 ug/dL (60-130)
[2021-06-14 06:39] LABS: Vitamin A 53 ug/dL (38-106)
[2021-06-14 06:57] LABS: Vit B1(Thiamine) 112 ug/L (38-122)
[2021-06-15 00:41] LABS: Selenium 134 mcg/L (63-160)
== END ==
LOC: BARWHC3 13:53
PROVIDERS: ATTEND Surgery
DX: E66.01 Morbid (severe) obesity due to excess calories (principal); Z71.3 Dietary counseling and surveillance; Z68.36 Body mass index [BMI] 36.0-36.9, adult; Z88.0 Allergy status to penicillin; Z88.5 Allergy status to narcotic agent; Z91.041 Radiographic dye allergy status; Z88.9 Allergy status to unspecified drugs, medicaments and biological substances; Z91.02 Food additives allergy status; Z87.891 Personal history of nicotine dependence
CPT/HCPCS: 84255; 84425; 80053; 82607; 82728; 82746; 83540; 83550; 83735; 84443; 84590; 84630; 85027; 82306; 36415; G0463; 99211

== ENCOUNTER → 2021-08-14 | Outpatient (CLI) | payer MEDICARE, OTHER ==
[2021-08-14 14:03] VITALS: BP 124/84; PULSE 60; TEMP 98; BMI 35.5
--- NOTE | 2021-08-14 14:12 | P.HPBAR ---
Bariatric H&P - History & Physicial H&P Date: 08/14/21 History & Physicial: Visit/CC: f/u Patient initial contact: Initial weight: 101.264 kg Initial weight in pounds: 223.25 Height: 5 ft 0.5 in Initial BMI: 42.8 Last weight: Current weight: 83.915 kg Current weight in pounds: 185.00 Current BMI: 35.5 [place] body weight (based on NIH guidelines): 46.493 kg Excess body weight loss: 31.6% The patient is a 66 year-old F who presents for Bariatric Assessment. Patient presents today for bariatric follow-up. She weighs 185 pounds. She presented to 188 pounds. She's had some minimal GERD. Past Medical History Past Medical History: Asthma, Fibromyalgia, GERD/Reflux, Hyperlipidemia, Osteoarthritis (OA), Supraventricular Tachycardia (SVT), Thyroid Disorder Additional Past Medical History / Comment(s): hx migraines, hx heart murmur and "rapid heart rate", Degenerative Disc Disease, back pain, lap band History of Any Multi-Drug Resistant Organisms: None Reported Past Surgical History: Appendectomy, Bariatric Surgery, Cardiac Ablation, Cholecystectomy, Heart Catheterization, Hysterectomy, Joint Replacement, Orthopedic Surgery, Tonsillectomy, Tubal Ligation Additional Past Surgical History / Comment(s): lithotripsy, lap band with hiatal hernia repair - lap band removed on 06/06/20, shemar foot surgery, shemar shoulder surgery, shemar knee arthroscopy, D&C, shemar carpal tunnel, fx rt arm/humurus repair, oophorectomy, sinus surgery,laparoscopy x 3, left knee replaced, gastric sleeve done 06/06/[address] Jaimes Past Anesthesia/Blood Transfusion Reactions: Family History of Problems w/ Anesthesia, Postoperative Nausea & Vomiting (PONV) Additional Past Anesthesia/Blood Transfusion Reaction / Comm: mother- nausea Past Psychological History: Anxiety Smoking Status: Former smoker Past Alcohol Use History: Rare Additional Past Alcohol Use History / Comment(s): quit smoking 1999, smoked off & on since age of 13, always <ppd Past Drug Use History: None Reported - Past Family History Mother Family Medical History: Cancer, CVA/TIA Additional Family Medical History / Comment(s): CVA x 5 Surgical - Exam Vital Signs Temp Pulse BP 98 F 60 124/84 08/14/21 14:00 06/13/22 14:00 08/14/21 14:00 - General well developed, well nourished, no distress - Eyes PERRL - ENT normal pinna - Neck no masses - Respiratory normal expansion - Cardiovascular Rhythm: regular - Abdomen Abdomen: soft, non tender Bariatric Assessment & Plan Plan: Patient is doing quite well from weight loss standpoint. Her GERD is minimal and will be observed. She'll follow-up in 4 weeks. Bariatric Checklist Checklist: Plan: Checklist: EGD: 1. Hiatal hernia: 2. H. Pylori: HgbA1c: Vitamin D: Smoking: Former smoker Primary care physician referral: adrian Psychiatry clearance: Cardiology clearance: Sleep study: Diet journal: VTE risk score: VTE risk level: Rehab needs at discharge:
== END ==
LOC: BARWHC3 13:30
PROVIDERS: ATTEND Surgery
DX: Z09 Encounter for follow-up examination after completed treatment for conditions other than malignant neoplasm (principal); K21.9 Gastro-esophageal reflux disease without esophagitis; E78.5 Hyperlipidemia, unspecified; J45.909 Unspecified asthma, uncomplicated; M19.90 Unspecified osteoarthritis, unspecified site; G43.909 Migraine, unspecified, not intractable, without status migrainosus; Z98.84 Bariatric surgery status; F41.9 Anxiety disorder, unspecified; Z87.891 Personal history of nicotine dependence; Z88.0 Allergy status to penicillin; Z91.041 Radiographic dye allergy status; Z88.5 Allergy status to narcotic agent; Z91.02 Food additives allergy status; Z88.9 Allergy status to unspecified drugs, medicaments and biological substances
CPT/HCPCS: 99211

== ENCOUNTER → 2021-12-11 | Outpatient (CLI) | payer MEDICARE, OTHER ==
[2021-12-11 13:31] VITALS: BP 120/70; PULSE 50; TEMP 98.2; BMI 37.3
--- NOTE | 2021-12-11 14:39 | P.HPBAR ---
Bariatric H&P - History & Physicial H&P Date: 12/11/21 History & Physicial: Visit/CC: sleeve follow up Patient initial contact: Initial weight: 101.264 kg Initial weight in pounds: 223.25 Height: 5 ft 0.5 in Initial BMI: 42.8 Last weight: Current weight: 87.997 kg Current weight in pounds: 194.00 Current BMI: 37.3 [place] body weight (based on NIH guidelines): 46.493 kg Excess body weight loss: 24.2% The patient is a 66 year-old F who presents for Bariatric Assessment.the patient presents for sleeve gastrectomy follow-up. She's had a weight gain of 8 pounds since her last visit. She's had minimal GERD. Past Medical History Past Medical History: Asthma, Fibromyalgia, GERD/Reflux, Hyperlipidemia, Osteoarthritis (OA), Supraventricular Tachycardia (SVT), Thyroid Disorder Additional Past Medical History / Comment(s): hx migraines, hx heart murmur and "rapid heart rate", Degenerative Disc Disease, back pain, lap band History of Any Multi-Drug Resistant Organisms: None Reported Past Surgical History: Appendectomy, Bariatric Surgery, Cardiac Ablation, Cholecystectomy, Heart Catheterization, Hysterectomy, Joint Replacement, Orthopedic Surgery, Tonsillectomy, Tubal Ligation Additional Past Surgical History / Comment(s): lithotripsy, lap band with hiatal hernia repair - lap band removed on 06/06/20, shemar foot surgery, shemar shoulder karen divya, shemar knee arthroscopy, D&C, shemar carpal tunnel, fx rt arm/humurus repair, oophorectomy, sinus surgery,laparoscopy x 3, left knee replaced, gastric sleeve done 06/06/[address] Jaimes Past Anesthesia/Blood Transfusion Reactions: Family History of Problems w/ Anesthesia, Postoperative Nausea & Vomiting (PONV) Additional Past Anesthesia/Blood Transfusion Reaction / Comm: mother- nausea Smoking Status: Former smoker - Past Family History Mother Family Medical History: Cancer, CVA/TIA Additional Family Medical History / Comment(s): CVA x 5 Surgical - Exam Vital Signs Temp Pulse BP 98.2 F 50 L 120/70 12/11/21 13:28 12/11/21 13:28 12/11/21 13:28 - General well developed, well nourished, no distress - Eyes PERRL - ENT normal pinna - Neck no masses - Respiratory normal expansion - Cardiovascular Rhythm: regular - Abdomen Abdomen: soft, non tender Bariatric Assessment & Plan Plan: status post sleeve gastrectomy. Patient's GERD is minimal and will be observed. She will work on better diet choices apparent she's had a lot of fast food this month. Bariatric Checklist Checklist: Plan: Checklist: EGD: 1. Hiatal hernia: 2. H. Pylori: HgbA1c: Vitamin D: Smoking: Former smoker Primary care physician referral: adrian Psychiatry clearance: Cardiology clearance: Sleep study: Diet journal: VTE risk score: VTE risk level: Rehab needs at discharge:
== END ==
LOC: BARWHC3 12:49
PROVIDERS: ATTEND Surgery
DX: K21.9 Gastro-esophageal reflux disease without esophagitis (principal); J45.909 Unspecified asthma, uncomplicated; E78.5 Hyperlipidemia, unspecified; M19.90 Unspecified osteoarthritis, unspecified site; Z98.84 Bariatric surgery status; Z88.0 Allergy status to penicillin; Z87.891 Personal history of nicotine dependence; Z88.8 Allergy status to other drugs, medicaments and biological substances
CPT/HCPCS: 99211

== ENCOUNTER → 2022-07-26 | Outpatient (CLI) | payer MEDICARE, OTHER ==
--- NOTE | 2022-07-26 20:04 | BD ---
EXAMINATION TYPE: Axial Bone Density DATE OF EXAM: 07/26/2022 CLINICAL HISTORY: 66 years old Female. ICD-10 CODE: M81.0 OSTEOPOROSIS Nuclear Medicine Study in the last 2 weeks: No Barium Study in the last week: No : No Height: 60" Weight: 199.3 lbs FRAX RISK QUESTIONS: Alcohol (3 or more units per day): No Family History (Parent hip fracture): No Glucocorticoids (More than 3mos): No (Ex: prednisone, prednisolone, methylprednisolone, dexamethasone, and hydrocortisone). History of Fracture in Adulthood: Right foot Secondary Osteoporosis: 1. Type 1 Diabetes: No 2. Hyperthyroidism: No 3. Menopause before 45: Yes, 41 4. Malnutrition: No 5. Chronic liver disease: No Rheumatoid Arthritis: No Current Tobacco Use: No RISK FACTORS HISTORY OF: Hip Fracture (Right/Left): No Spine Fracture: No History of Wrist Fracture: No Surgery to Spine/Hip(right/left)/Wrist (right/left): No Family History of Osteoporosis: Yes, maternal grandmother Diet low in dairy products/other sources of calcium: No Postmenopausal woman: Yes Lost more than 2 inches in height since high school: No Frequent falls: No Poor Health: No Hyperparathyroidism: No Adrenal Insufficiency: No MEDICATIONS: Prednisone or other steroids: No Thyroid Medications: Yes Which medication: Levothyroxine How Long: Couple of years Osteoporosis Medications: No Additional Medications: Levothyroxine, Blood Pressure Meds, Cholesterol Medication, Omeprazole, Vitam in D3, Anti-depression meds, Xanax Additional History: Hx of Basal Cell Carcinoma July 2021 EXAM MEASUREMENTS: Bone mineral densitometry was performed using the [employer] System. Bone mineral density as measured about the Lumbar spine is: ----- L1-L4(G/cm2): 1.284 T Score Values are as follows: ----- L1: -0.4 ----- L2: 1.5 ----- L3: 1.4 ----- L4: 0.8 ----- L1-L4: 0.9 Z Score Values are as follows: ----- L1: 0.3 ----- L2: 2.3 ----- L3: 2.2 ----- L4: 1.6 ----- L1-L4: 1.6 Baseline @ [facility] Bone mineral density about the R hip (g/cm2): 0.997 Bone mineral density about the L hip (g/cm2): 0.983 T Score values are as follows: -----R Neck: -1.0 -----L Neck: -1.0 -----R Total: -0.1 -----L Total: -0.2 Z Score values are as follows: -----R Neck: -0.1 -----L Neck: 0.0 -----R Total: 0.5 -----L Total: 0.4 Baseline @ [facility] FRAX%s: The graph provided illustrates a 12.2% chance for a major osteoporotic fx and a 0.9% chance f or the hips probability for fx in 10 years time. IMPRESSION: Normal (Values between +1 and -1 indicate normal bone mass). However, note that measurements border o n osteopenia at both hips. Consider repeating this study in 5 years or sooner if there is some new c linical indication. NOTE: T-SCORE=SD OF THE YOUNG ADULT MEAN.
--- NOTE | 2022-07-27 18:59 | MM ---
Reason for Exam: Screening (asymptomatic). Last mammogram was performed 1 year(s) and 10 month(s) ago. Patient History: Menarche at age 14. First Full-Term at age 19. Left ovary removed at age 41. Right ovary removed at age 45. Hysterectomy at age 41. Postmenopausal. Patient used Estrogen for 4 years. Patient used Hormonal Contraceptives for 4 years. Maternal cousin had breast cancer under age 50. Paternal aunt had breast cancer at or over age 50. Mother had breast cancer at or over age 50. Risk Values: María Elena 5 year model risk: 3.1%. NCI Lifetime model risk: 11.4%. Prior Study Comparison: 12/23/2014 Screening Mammogram, [facility]. 12/26/2015 Screening Mammogram, [facility]. 09/08/2020 Bilateral Screening Mammogram, [facility]. 09/28/2020 Left Diagnostic Mammogram, [facility]. 04/04/2021 Left Diagnostic Mammogram, [facility]. Tissue Density: The breast tissue is heterogeneously dense. This may lower the sensitivity of mammography. Findings: Analyzed By CAD. Chronic nodularity on the left. Benign bilateral vascular calcifications. There is no suspicious group of microcalcifications or new suspicious mass in either breast. Overall Assessment: Benign, BI-RAD 2 Management: Screening Mammogram of both breasts in 1 year. See note below in regards to patient's increased five-year María Elena score. Patient should continue monthly self-breast exams. A clinical breast exam by your physician is recommended on an annual basis. This exam should not preclude additional follow-up of suspicious palpable abnormalities. Note on María Elena scores and lifetime risk: 1. A María Elena score greater than 3% is considered moderate risk. If this is the case, consider specialist referral to assess eligibility for a risk reducing agent. 2. If overall lifetime risk for the development of breast cancer is 20% or higher, the patient may qualify for future screening with alternating mammogram and breast MRI. Electronically signed and approved by: Freddie Valladares M.D.
== END | disposition home or self-care (01) ==
LOC: RADMAMWWP 08:42
PROVIDERS: ATTEND Internal Medicine Geriatric Medicine
DX: Z12.31 Encounter for screening mammogram for malignant neoplasm of breast (principal); M85.89 Other specified disorders of bone density and structure, multiple sites; M81.0 Age-related osteoporosis without current pathological fracture; Z80.3 Family history of malignant neoplasm of breast
CPT/HCPCS: 77063; 77067; 77080

== ENCOUNTER → 2024-01-29 | Outpatient (CLI) | payer MEDICARE, OTHER ==
--- NOTE | 2024-02-03 11:43 | MM ---
Reason for Exam: Screening (asymptomatic). Last mammogram was performed 1 year(s) and 6 month(s) ago. Indicated Problems: Lump or thickening of the right side for 5 Day(s). Patient History: Menarche at age 14. First Full-Term at age 19. Left ovary removed at age 41. Right ovary removed at age 45. Hysterectomy at age 41. Postmenopausal. Patient used Estrogen for 4 years. Patient used Hormonal Contraceptives for 4 years. Maternal cousin had breast cancer under age 50. Paternal aunt had breast cancer at or over age 50. Mother had breast cancer at or over age 50. Risk Values: Kath[place] 5 year model risk: 3.1%. NCI Lifetime model risk: 10.5%. Prior Study Comparison: 09/28/2020 Left Diagnostic Mammogram, [facility]. 04/04/2021 Left Diagnostic Mammogram, [facility]. 07/26/2022 Bilateral MG 3D screening mammo w/cad, [facility]. Tissue Density: The breasts are heterogeneously dense, which may obscure small masses. Findings: Analyzed By CAD. Chronic nodularity on the left. However, there is increased trabecular thickening throughout the right breast and new right axillary adenopathy. Suggestion of a couple discrete underlying masses in the right breast, posterior 6:00 position and lateral aspect middle depth better demonstrated on 3-D images. Overall Assessment: Incomplete: need additional imaging evaluation, BI-RAD 0 Management: Special View Mammogram of the right breast. Diagnostic Breast Ultrasound of the right breast. Entire right breast ultrasound. Additional surgical consultation for the suspicious findings. [facility] will attempt to contact patient to return for supplemental views and ultrasound if indicated. SEE NOTE BELOW IN REGARDS TO PATIENT'S INCREASED 5 YEAR KATHRYN SCORE. Note on Kathryn scores and lifetime risk: 1. A Kathryn score greater than 3% is considered moderate risk. If this is the case, consider specialist referral to assess eligibility for a risk reducing agent. 2. If overall lifetime risk for the development of breast cancer is 20% or higher, the patient may qualify for future screening with alternating mammogram and breast MRI. [facility], , 02/03/2024 11:40 AM. Electronically signed and approved by: Jenny Johnson M.D. Radiologist
== END | disposition home or self-care (01) ==
LOC: RADMAMWWP 14:31
PROVIDERS: ATTEND Internal Medicine Geriatric Medicine
DX: Z12.31 Encounter for screening mammogram for malignant neoplasm of breast (principal); R92.333 Mammographic heterogeneous density, bilateral breasts; Z78.0 Asymptomatic menopausal state; Z80.3 Family history of malignant neoplasm of breast
CPT/HCPCS: 77063; 77067

== ENCOUNTER → 2024-02-06 | Outpatient (CLI) | payer MEDICARE, OTHER | END | disposition home or self-care (01) | LOC: RADUSWWP 14:40 | PROVIDERS: ATTEND Internal Medicine Geriatric Medicine | DX: Z53.9 Procedure and treatment not carried out, unspecified reason (principal) ==

== ENCOUNTER → 2024-02-06 | Outpatient (CLI) | payer MEDICARE, OTHER | END | disposition home or self-care (01) | LOC: RADMAMWWP 13:30 | PROVIDERS: ATTEND Internal Medicine Geriatric Medicine | DX: Z53.9 Procedure and treatment not carried out, unspecified reason (principal) ==

== ENCOUNTER → 2024-02-06 | Outpatient (CLI) | payer MEDICARE, OTHER ==
[2024-02-06 13:06] VITALS: BP 112/75; PULSE 62; RESP 16; TEMP 97.6
--- NOTE | 2024-02-06 13:44 | P.GSCN ---
History of Present Illness Consult date: 02/06/24 Reason for Consult: breast pain Requesting physician: Mauro Marcus History of present illness: Nela is a 68 year old female seen in consultation for Dr. Marcus regarding breast pain. She had a bilateral mammogram on 01-29-24, This showed nodular and thickening in the right breast and diagnostic mammogram and ultrasound recommended. Additionally the mammogram was personally reviewed and discussed with Dr. Kim and he recommended MRI also. The patient states last week her breast on the right had gotten larger, the nipple had retracted, and redness around the nipple. It has only been like that for two weeks. She had a mammogram 1 year ago and that was fine. She s not yet had the repeat mammogram and ultrasound. She is complaining of pain in the lateral aspect of the right breast. It is worse with palpation. It does not radiate. She is not complaining of any nipple discharge. She has never had any surgery on her breast. /she has not had any recent trauma or infection in her breast. Caffeine: occasional nicotine: none, former smoker stopped 25 year ago, used to smoke about 5 cigarettes/day for 20 years chocolate: occasional hormone: on premarin for 2 years until 2003 after hysterectomy adn oophrectomy BCP: used for about 3 years stopped about 49 years ago Family History: mother: left breast cancer in her 70's paternal aunt: breast cancer nephew mothers side: 18 GI cancer patient has had two basal cell cancers removed, located on her right ann and left back Hormonal History: menarche: 14 M1, breast fed: no, age at first : 19 menopause: 45, hysterectomy scar tissue, no cancer, took one ovary and 4 years later took the second one Surgical History: hysterectomy oophrectomy bilateral right arm appy tonsil D&C tubaligation 3 laproscopies 3 left knee arthroscopies 4 colonoscopies sinus surgery bunyon toe heart cath lithotripsy for kidney stones carpel tunnel bilateral lap band haital hernia cardiac ablation right knee arthoscopic gallbaldder total left knee replacement right knee total knee Medical History: diabetes HTN hypothyroid back pain pain medicine BID L1-L5 deteriorating reflux Social History: nicotine: as above alcohol: 1 time a year 1 glass drugs: none stopped when 19, used to use sporadically Review of Systems - Constitutional Reports sweats, Denies fever, Denies weight loss - EENT Eyes: bilateral as per HPI Ears: bilateral: tinnitus Ears, nose, mouth and throat: Denies dysphagia - Breasts bilateral: as per HPI - Cardiovascular Denies chest pain, Denies shortness of breath - Respiratory Respiratory Comment(s): asthma - Gastrointestinal Reports as per HPI - Genitourinary Genitourinary Comment(s): kidney stones Menstruation: Reports post hysterectomy - Musculoskeletal Reports as per HPI - Integumentary Reports pruritus - Neurological Denies headaches, Denies syncope - Psychiatric Reports anxiety - Endocrine Endocrine Comment(s): diabetes Reports fatigue - Hematologic/Lymphatic Reports easy bruising, Denies easy bleeding - Allergic/Immunologic Reports seasonal allergies Past Medical History Past Medical History: Asthma, Fibromyalgia, GERD/Reflux, Hyperlipidemia, Osteoarthritis (OA), Supraventricular Tachycardia (SVT), Thyroid Disorder Additional Past Medical History / Comment(s): hx migraines, hx heart murmur and "rapid heart rate", Degenerative Disc Disease, back pain, lap band History of Any Multi-Drug Resistant Organisms: None Reported Past Surgical History: Appendectomy, Bariatric Surgery, Cardiac Ablation, Cholecystectomy, Heart Catheterization, Hysterectomy, Joint Replacement, Orthopedic Surgery, Tonsillectomy, Tubal Ligation Additional Past Surgical History / Comment(s): lithotripsy, lap band with hiatal hernia repair - lap band removed on 06/06/20, shemar foot surgery, shemar shoulder surgery, shemar knee arthroscopy, D&C, shemar carpal tunnel, fx rt arm/humurus repair, oophorectomy, sinus surgery,laparoscopy x 3, left knee replaced, gastric sleeve done 06/06/[address] Jaimes Past Anesthesia/Blood Transfusion Reactions: Family History of Problems w/ Anesthesia, Postoperative Nausea & Vomiting (PONV) Additional Past Anesthesia/Blood Transfusion Reaction / Comm: mother- nausea Past Psychological History: Anxiety Smoking Status: Former smoker Past Alcohol Use History: Rare Additional Past Alcohol Use History / Comment(s): quit smoking 1999, smoked off & on since age of 13, always <ppd Past Drug Use History: None Reported - Past Family History Mother Family Medical History: Cancer, CVA/TIA Additional Family Medical History / Comment(s): CVA x 5 Medications and Allergies Home Medications Medication Instructions Recorded Confirmed Type ALPRAZolam [Xanax] 0.25 mg PO HS PRN 05/28/14 02/06/24 History Atenolol [Tenormin] 50 mg PO HS 05/28/14 02/06/24 History Fluticasone Propion/Salmeterol 1 inhalation PO DAILY PRN 05/28/14 02/06/24 History [Advair 250-50 Diskus] Atorvastatin [Lipitor] 10 mg PO DAILY 05/04/15 02/06/24 History Albuterol Inhaler [Ventolin Hfa 1 - 2 puff INHALATION RT-Q6H PRN 12/11/17 02/06/24 History Inhaler] Cetirizine HCl [Zyrtec] 5 mg PO HS 12/11/17 02/06/24 History Cholecalciferol [Vitamin D3 (25 5,000 unit PO DAILY 12/11/17 02/06/24 History Mcg = 1000 Iu)] DULoxetine HCL [Cymbalta] 60 mg PO HS 12/11/17 02/06/24 History Levothyroxine Sodium [Levo-T] 75 mcg PO QAM 12/11/17 02/06/24 History Baclofen [Lioresal] 10 mg PO TID 03/22/20 02/06/24 History Pyridoxine [Vitamin B-6] 50 mg PO DAILY 03/22/20 02/06/24 History Cyanocobalamin (Vitamin B-12) 1,000 mcg PO DAILY 05/30/20 02/06/24 History [Vitamin B-12] Fenofibrate Nanocrystallized 145 mg PO DAILY 05/30/20 02/06/24 History [Fenofibrate] Melatonin [Melatonin Tr] 10 mg PO HS 05/30/20 02/06/24 History Omeprazole 20 mg PO DAILY 05/30/20 02/06/24 History Temazepam [Restoril] 15 mg PO HS 06/03/20 02/06/24 History Ondansetron Odt [Zofran Odt] 4 mg PO Q8HR PRN #9 tab 06/08/20 02/06/24 Rx Multivitamins, Thera [Multivitamin 1 tab PO DAILY 09/12/20 02/06/24 History (formulary)] HYDROcodone/APAP 7.5-325MG [Odum 1 tab PO Q8H PRN 12/05/20 02/06/24 History 7.5-325] Vitamin C/Biotin [Hair, Skin and 1 tab PO DAILY 12/05/20 02/06/24 History Nails Chew] Iron 18 mg PO DAILY 08/14/21 02/06/24 History Allergies Allergy/AdvReac Type Severity Reaction Status Date / Time hydrocodone bitartrate Allergy Nausea Verified 02/06/24 13:02 [From Vicodin] iodine Allergy Rash/Hives Verified 02/06/24 13:02 Penicillins Allergy Anaphylaxis Verified 02/06/24 13:02 aspartame AdvReac Unknown Unknown Verified 02/06/24 13:02 metal Allergy Rash/Hives Uncoded 02/06/24 13:02 Surgical - Exam Vital Signs Temp Pulse Resp BP Pulse Ox 97.6 F 62 16 112/75 98 02/06/24 13:02 02/06/24 13:02 02/06/24 13:02 02/06/24 13:02 02/06/24 13:02 - General no distress - Eyes normal ocular movement - ENT no hearing loss - Neck trachea midline - Respiratory normal respiratory effort, clear to auscultation - Cardiovascular Heart Sounds: normal: S1, S2 - Abdomen Abdomen: soft, non tender, no guarding, no rigid, no rebound - Integumentary normal turgor - Neurologic no disoriented, no combative - Musculoskeletal normal gait - Psychiatric oriented to time, oriented to person, oriented to place, speech is normal, memory intact Breast Exam: BRA: 38D Inspection: Erythema and thickening of the right breast with right nipple inversion bilateral grade 2/3 cyst Palpation: Right breast: Multi positional exam firmness throughout the central parenchyma of the breast approximately 8 cm x 8 cm with thickening of the skin and erythema tender to palpation Right axilla: no palpable nodes, adenopathy seen on mammogram Left breast: Multi positional exam no dominant masses or nodules of concern Left axilla: No adenopathy of concern Results Mammogram personally reviewed with Dr. Johnson and discussed, the patient is going to get a right breast diagnostic mammogram and ultrasound as well as bilateral MRI Assessment and Plan Assessment: Impression: Thickening of the right breast with fullness in the central portion of the breast approximately 8 x 8 cm mass Medical history as documented Plan: Diagnostic right breast mammogram and ultrasound Breast MRI Further recommendation after testing is done CC: Dr. Marcus
--- NOTE | 2024-02-06 14:53 | USB ---
Patient History: Menarche at age 14. First Full-Term at age 19. Left ovary removed at age 41. Right ovary removed at age 45. Hysterectomy at age 41. Postmenopausal. Patient used Estrogen for 4 years. Patient used Hormonal Contraceptives for 4 years. Maternal cousin had breast cancer under age 50. Paternal aunt had breast cancer at or over age 50. Mother had breast cancer at or over age 50. Risk Values: María Elena 5 year model risk: 3.1%. NCI Lifetime model risk: 10.5%. Technique: Method: Whole Breast Handheld. Doppler: Color. Patient Position: LPO. Prior Study Comparison: 04/04/2021 Left Diagnostic Mammogram, [facility]. 07/26/2022 Bilateral MG 3D screening mammo w/cad, [facility]. 01/29/2024 Bilateral MG 3D screening mammo w/cad, [facility]. Findings: The whole breast of the right breast, the axilla of the right breast and the retroareolar of the right breast were scanned. A complete US of all four quadrants of the breast, axilla, and retro-areolar region were reviewed. At the 12:00 position, for some years from the nipple, there is a vertically oriented heterogeneous hypoechoic lesion measuring 1.7 cm. 12:00 2 cm from the nipple, probable benign 1.2 cm cyst cluster. Numerous additional scattered heterogeneous areas are present throughout the breast. Many of these areas are poorly defined. There is concurrent heterogeneous skin thickening. Focal hypoechoic mass 7:00 position, 7 cm from the nipple measuring 2.2 cm. Irregular hypoechoic mass 8:00 position, 7 cm from the nipple measuring 1.5 cm. Suggestion of heterogeneous abnormal tissue behind the nipple. Abnormal right axillary adenopathy, largest measuring 4.0 cm.. Overall Assessment: Highly suggestive of malignancy, BI-RAD 5 Management: Ultrasound Core Biopsy of the right breast. 12:00, 7:00, and axilla; 3 site biopsy. Given the skin thickening and diffuse heterogeneous tissue, there is there is concern for inflammatory breast cancer. Results were given to the patient verbally at the time of exam. [facility], , 02/06/2024 2:50 PM. Electronically signed and approved by: Jenny Johnson M.D. Radiologist
== END ==
LOC: WWCWWP 12:33
PROVIDERS: ATTEND Surgery
DX: R92.8 Other abnormal and inconclusive findings on diagnostic imaging of breast (principal); N64.4 Mastodynia; N63.10 Unspecified lump in the right breast, unspecified quadrant; Z87.891 Personal history of nicotine dependence; Z80.3 Family history of malignant neoplasm of breast; Z88.5 Allergy status to narcotic agent; Z88.0 Allergy status to penicillin; Z88.8 Allergy status to other drugs, medicaments and biological substances
CPT/HCPCS: 77065; 76641; G0279; 77061

== ENCOUNTER → 2024-02-07 | Day surgery (SDC) | payer MEDICARE, OTHER ==
--- NOTE | 2024-02-17 11:01 | MM ---
Reason for Exam: Post Procedure Mammogram. Last screening mammogram was performed less than 1 month ago. Patient History: Menarche at age 14. First Full-Term at age 19. Left ovary removed at age 41. Right ovary removed at age 45. Hysterectomy at age 41. Postmenopausal. Patient used Estrogen for 4 years. Patient used Hormonal Contraceptives for 4 years. Maternal cousin had breast cancer under age 50. Paternal aunt had breast cancer at or over age 50. Mother had breast cancer at or over age 50. Risk Values: María Elena 5 year model risk: 3.1%. NCI Lifetime model risk: 10.5%. Prior Study Comparison: 04/04/2021 Left Diagnostic Mammogram, [facility]. 07/26/2022 Bilateral MG 3D screening mammo w/cad, [facility]. 01/29/2024 Bilateral MG 3D screening mammo w/cad, [facility]. Tissue Density: Right: The breasts are heterogeneously dense, which may obscure small masses. Pathology Description: Location: axilla. Marker Left Behind. Needle Type: Mammotome Cores: 6 Pathology Description: Location: 12 o'clock. Marker Left Behind. Needle Type: Mammotome Cores: 8 Pathology Description: Location: 7 o'clock. Marker Left Behind. Needle Type: Celero Cores: 2 The procedure of ultrasound guided core biopsy was explained to the patient. Benefits, alternatives, and risks were discussed. An informed consent was then obtained. The patient was placed in supine positioning for imaging and for the procedure. The overlying skin was prepped and draped in usual sterile fashion. Lidocaine buffered with bicarbonate was used as anesthetic into the skin followed by lidocaine/epinephrine into the subcutaneous tissue up to area of concern in the right breast at each site resident intern. A.) 7:00 BI-RADS 5 mass. Under ultrasound guidance, a 12-gauge vacuum assisted Celero biopsy gun device was used to obtain 2 core samples. Following this, a Wing clip was left in lesion. B.) 12:00 suspicious area. Under ultrasound guidance, a 13-gauge vacuum-assisted mammotome Elite biopsy gun was used to obtain 8 core samples. Following this, a HydroMark coil clip was left in lesion. B.) Rounded axillary node, BI-RADS 5. Under ultrasound guidance, a 13-gauge vacuum-assisted mammotome Elite biopsy gun was used to obtain 6 core samples. Following this, a HydroMark butterfly clip was left in lesion. The patient tolerated the procedure well without any immediate complication. The patient was kept in the radiology department for short stay after the procedure and then discharged home in stable condition. Postprocedure mammogram: The patient was transferred to mammography for physician ordered post procedure mammogram for clip placement verification. Post procedure mammogram demonstrates appropriate placement of all 3 clips. IMPRESSION: Successful, uncomplicated ultrasound guided core biopsy of: 1. 7:00 mass, wing clip 2. 12:00 heterogeneous area, HydroMark coil clip 3. Rounded abnormal axillary node, HydroMark butterfly clip Note additional extensive abnormal areas throughout the breast. With the skin thickening, there is concern for inflammatory breast cancer. Full pathology results to follow. [facility], , 02/07/2024 3:44 PM. Pathology Results: Result: Malignant, Invasive ductal carcinoma. Pathology and radiology were reviewed. Findings are concordant. A. RIGHT BREAST, 7:00, NEEDLE CORE BIOPSY: Invasive poorly differentiated ductal carcinoma (grade 3). See Surgical Pathology Cancer Case Summary. B. RIGHT BREAST, 12:00, NEEDLE CORE BIOPSY: Invasive poorly differentiated ductal carcinoma (grade 3). See Surgical Pathology Cancer Case Summary. C. RIGHT AXILLA, BIOPSY: Lymph node involved by metastatic poorly differentiated ductal mammary carcinoma. Size of largest metastatic deposit measures approximately 9 mm. Overall Assessment: Malignant Assessment: MG diagnostic mammo RT wo CAD - Right: Known biopsy proven malignancy, BI-RAD 6. Management: Surgical Consultation of the right breast. Electronically signed and approved by: Jenny Johnson M.D. Radiologist
== END ==
LOC: RADUSWWP 07:28
PROVIDERS: ATTEND Surgery
DX: C50.811 Malignant neoplasm of overlapping sites of right female breast (principal); Z90.721 Acquired absence of ovaries, unilateral; Z78.0 Asymptomatic menopausal state; Z92.0 Personal history of contraception; Z80.3 Family history of malignant neoplasm of breast
CPT/HCPCS: 88305; 88342; 88341; 77065; 19083; 19084; 38505; A4648

== ENCOUNTER → 2024-02-13 | Outpatient (CLI) | payer MEDICARE ==
[2024-02-13 11:00] VITALS: PULSE 77; RESP 17; TEMP 98
--- NOTE | 2024-02-13 11:06 | P.PN ---
Subjective Progress Note Date: 02/13/24 Principal diagnosis: IDC right breast History of Present Illness Consult date: 02/06/24 Reason for Consult: breast pain Requesting physician: Mauro Marcus History of present illness: Nela is a 68 year old female seen in consultation for Dr. Marcus regarding breast pain. She had a bilateral mammogram on 01-29-24, This showed nodular and thickening in the right breast and diagnostic mammogram and ultrasound recommended. Additionally the mammogram was personally reviewed and discussed with Dr. Kim and he recommended MRI also. The patient states last week her breast on the right had gotten larger, the nipple had retracted, and redness around the nipple. It has only been like that for two weeks. She had a mammogram 1 year ago and that was fine. She s not yet had the repeat mammogram and ultrasound. She is complaining of pain in the lateral aspect of the right breast. It is worse with palpation. It does not radiate. She is not complaining of any nipple discharge. She has never had any surgery on her breast. /she has not had any recent trauma or infection in her breast. Core biopys of the right breast at 7, 12 and axillary node all tripple - invasive ductal cancer, she tolerated the biopsies without difficulty Caffeine: occasional nicotine: none, former smoker stopped 25 year ago, used to smoke about 5 cigarettes/day for 20 years chocolate: occasional hormone: on premarin for 2 years until 2003 after hysterectomy adn oophrectomy BCP: used for about 3 years stopped about 49 years ago Family History: mother: left breast cancer in her 70's paternal aunt: breast cancer nephew mothers side: 18 GI cancer patient has had two basal cell cancers removed, located on her right ann and left back Hormonal History: menarche: 14 M1, breast fed: no, age at first : 19 menopause: 45, hysterectomy scar tissue, no cancer, took one ovary and 4 years later took the second one Surgical History: hysterectomy oophrectomy bilateral right arm appy tonsil D&C tubaligation 3 laproscopies 3 left knee arthroscopies 4 colonoscopies sinus surgery bunyon toe heart cath lithotripsy for kidney stones carpel tunnel bilateral lap band haital hernia cardiac ablation right knee arthoscopic gallbaldder total left knee replacement right knee total knee Medical History: diabetes HTN hypothyroid back pain pain medicine BID L1-L5 deteriorating reflux Social History: nicotine: as above alcohol: 1 time a year 1 glass drugs: none stopped when 19, used to use sporadically Review of Systems - Constitutional Reports sweats, Denies fever, Denies weight loss - EENT Eyes: bilateral as per HPI Ears: bilateral: tinnitus Ears, nose, mouth and throat: Denies dysphagia - Breasts bilateral: as per HPI - Cardiovascular Denies chest pain, Denies shortness of breath - Respiratory Respiratory Comment(s): asthma - Gastrointestinal Reports as per HPI - Genitourinary Genitourinary Comment(s): kidney stones Menstruation: Reports post hysterectomy - Musculoskeletal Reports as per HPI - Integumentary Reports pruritus - Neurological Denies headaches, Denies syncope - Psychiatric Reports anxiety - Endocrine Endocrine Comment(s): diabetes Reports fatigue - Hematologic/Lymphatic Reports easy bruising, Denies easy bleeding - Allergic/Immunologic Reports seasonal allergies Past Medical History Past Medical History: Asthma, Fibromyalgia, GERD/Reflux, Hyperlipidemia, Osteoarthritis (OA), Supraventricular Tachycardia (SVT), Thyroid Disorder Additional Past Medical History / Comment(s): hx migraines, hx heart murmur and "rapid heart rate", Degenerative Disc Disease, back pain, lap band History of Any Multi-Drug Resistant Organisms: None Reported Past Surgical History: Appendectomy, Bariatric Surgery, Cardiac Ablation, Cholecystectomy, Heart Catheterization, Hysterectomy, Joint Replacement, Orthopedic Surgery, Tonsillectomy, Tubal Ligation Additional Past Surgical History / Comment(s): lithotripsy, lap band with hiatal hernia repair - lap band removed on 06/06/20, shemar foot surgery, shemar shoulder surgery, shemar knee arthroscopy, D&C, shemar carpal tunnel, fx rt arm/humurus repair, oophorectomy, sinus surgery,laparoscopy x 3, left knee replaced, gastric sleeve done 06/06/[address] Jaimes Past Anesthesia/Blood Transfusion Reactions: Family History of Problems w/ Anesthesia, Postoperative Nausea & Vomiting (PONV) Additional Past Anesthesia/Blood Transfusion Reaction / Comm: mother- nausea Past Psychological History: Anxiety Smoking Status: Former smoker Past Alcohol Use History: Rare Additional Past Alcohol Use History / Comment(s): quit smoking 1999, smoked off & on since age of 13, always <ppd Past Drug Use History: None Reported - Past Family History Mother Family Medical History: Cancer, CVA/TIA Additional Family Medical History / Comment(s): CVA x 5 Medications and Allergies Home Medications Medication Instructions Recorded Confirmed Type ALPRAZolam [Xanax] 0.25 mg PO HS PRN 05/28/14 02/06/24 History Atenolol [Tenormin] 50 mg PO HS 05/28/14 02/06/24 History Fluticasone Propion/Salmeterol 1 inhalation PO DAILY PRN 05/28/14 02/06/24 History [Advair 250-50 Diskus] Atorvastatin [Lipitor] 10 mg PO DAILY 05/04/15 02/06/24 History Albuterol Inhaler [Ventolin Hfa 1 - 2 puff INHALATION RT-Q6H PRN 12/11/17 02/06/24 History Inhaler] Cetirizine HCl [Zyrtec] 5 mg PO HS 12/11/17 02/06/24 History Cholecalciferol [Vitamin D3 (25 5,000 unit PO DAILY 12/11/17 02/06/24 History Mcg = 1000 Iu)] DULoxetine HCL [Cymbalta] 60 mg PO HS 12/11/17 02/06/24 History Levothyroxine Sodium [Levo-T] 75 mcg PO QAM 12/11/17 02/06/24 History Baclofen [Lioresal] 10 mg PO TID 03/22/20 02/06/24 History Pyridoxine [Vitamin B-6] 50 mg PO DAILY 03/22/20 02/06/24 History Cyanocobalamin (Vitamin B-12) 1,000 mcg PO DAILY 05/30/20 02/06/24 History [Vitamin B-12] Fenofibrate Nanocrystallized 145 mg PO DAILY 05/30/20 02/06/24 History [Fenofibrate] Melatonin [Melatonin Tr] 10 mg PO HS 05/30/20 02/06/24 History Omeprazole 20 mg PO DAILY 05/30/20 02/06/24 History Temazepam [Restoril] 15 mg PO HS 06/03/20 02/06/24 History Ondansetron Odt [Zofran Odt] 4 mg PO Q8HR PRN #9 tab 06/08/20 02/06/24 Rx Multivitamins, Thera [Multivitamin 1 tab PO DAILY 09/12/20 02/06/24 History (formulary)] HYDROcodone/APAP 7.5-325MG [[place] 1 tab PO Q8H PRN 12/05/20 02/06/24 History 7.5-325] Vitamin C/Biotin [Hair, Skin and 1 tab PO DAILY 12/05/20 02/06/24 History Nails Chew] Iron 18 mg PO DAILY 08/14/21 02/06/24 History Allergies Allergy/AdvReac Type Severity Reaction Status Date / Time hydrocodone bitartrate Allergy Nausea Verified 02/06/24 13:02 [From Vicodin] iodine Allergy Rash/Hives Verified 02/06/24 13:02 Penicillins Allergy Anaphylaxis Verified 02/06/24 13:02 aspartame AdvReac Unknown Unknown Verified 02/06/24 13:02 metal Allergy Rash/Hives Uncoded 02/06/24 13:02 Objective - Vital Signs Vital signs: Intake & Output 02/12/24 02/13/24 02/13/24 18:59 06:59 18:59 Weight 90.718 kg - Constitutional General appearance: Present: cooperative - EENT ENT: Present: hearing grossly normal - Neck Neck: Present: normal ROM - Respiratory Respiratory: bilateral: CTA - Cardiovascular Rhythm: regular Heart sounds: normal: S1, S2 - Musculoskeletal Musculoskeletal: Present: gait normal - Psychiatric Psychiatric: Present: A&O x's 3, appropriate affect, intact judgment & insight - Additional findings Additional findings: Breast Exam: BRA: 38D Inspection: Erythema and thickening of the right breast with right nipple inversion bilateral grade 2/3 ptosis Palpation: Right breast: Multi positional exam firmness throughout the central parenchyma of the breast approximately 8 cm x 8 cm with thickening of the skin and erythema tender to palpation, biopsy sites clean without evidence of infection Right axilla: no palpable nodes, adenopathy seen on mammogram Left breast: Multi positional exam no dominant masses or nodules of concern Left axilla: No adenopathy of concern Assessment and Plan Assessment: Impression: Thickening of the right breast with fullness in the central portion of the breast approximately 8 x 8 cm mass Medical history as documented biopsy tripple (-) Invasive ductal cancer right breast Plan: breast MRI present at tumor board appointment medical oncology skin biopsy rule out inflammatory cancer PET scan rule out mets CC: Dr. Marcus
== END ==
LOC: WWCWWP 09:37
PROVIDERS: ATTEND Surgery
DX: N64.4 Mastodynia (principal); N64.59 Other signs and symptoms in breast; R92.8 Other abnormal and inconclusive findings on diagnostic imaging of breast; Z88.0 Allergy status to penicillin; Z88.5 Allergy status to narcotic agent; Z88.8 Allergy status to other drugs, medicaments and biological substances; Z91.048 Other nonmedicinal substance allergy status; Z87.891 Personal history of nicotine dependence; Z80.3 Family history of malignant neoplasm of breast

== ENCOUNTER → 2024-02-14 | Outpatient (CLI) | payer MEDICARE, OTHER ==
--- NOTE | 2024-02-14 21:16 | MR ---
EXAMINATION TYPE: MR brain wo/w con DATE OF EXAM: 02/14/2024 9:05 PM COMPARISON: None. CLINICAL INDICATION: Female, 68 years old with history of C50.811 MALIGNANT NEOPLASM OF OVRLP SITES O F RIGHT; PHH, breast cancer. TECHNIQUE: Multi planar, multi sequence imaging was performed through the brain including: T1, T2, In version recovery, susceptibility weighted imaging and gradient echo imaging and Diffusion weighted im aging. The patient was then given intravenous contrast and multi planar, T1 fat-saturation images wer e obtained. IV Contrast: 9 mL Gadavist FINDINGS: The lieberman-white junctions, ventricular system, basal cisterns appear unremarkable. Diffusion-weighted imaging shows no evidence of restricted diffusion to suggest acute/subacute infarct. Intracranial ar terial flow voids are maintained. Midline structures show no abnormality. Scattered foci of high T2 s ignal intensity are seen within the periventricular white matter. The susceptibility weighted images do not reveal any evidence for micro-hemorrhage. After administration of gadolinium, no abnormal enha ncement is seen. The bone marrow signal is within normal limits. Paranasal sinuses and mastoid air cells: No significant paranasal sinus disease. Visualized orbits: Bilateral aphakia IMPRESSION: 1. No evidence of intracranial mass, acute/subacute infarct, or abnormal enhancement. 2. Nonspecific white matter changes, likely related to small vessel ischemic disease. [facility], , 02/14/2024 9:14 PM
== END | disposition home or self-care (01) ==
LOC: RADMRIMAIN 20:15
PROVIDERS: ATTEND Internal Medicine Hematology & Oncology
DX: C50.811 Malignant neoplasm of overlapping sites of right female breast (principal); R90.82 White matter disease, unspecified; Z85.3 Personal history of malignant neoplasm of breast
CPT/HCPCS: 70553; A9585

== ENCOUNTER → 2024-02-14 | Outpatient (CLI) | payer MEDICARE, OTHER ==
--- NOTE | 2024-02-15 13:31 | PE ---
EXAMINATION TYPE: PET CT fusion skull to thigh DATE OF EXAM: 02/14/2024 CLINICAL INDICATION:Female, 68 years old with history of C50.811 Breast ca TECHNIQUE: Following the intravenous administration of 10.39 mCi of F-18 FDG, whole body images are performed from the skull base to the midthigh. Images are reviewed on the computer in the coronal, axial, and sagittal planes. Reconstructed rotating images are created on independent workstation and reviewed on the computer. A non-contrast CT is performed in conjunction with the PET scan. Glucose level 94 mg/dL CT DLP: 776 mGycm, Automated exposure control for dose reduction was used. COMPARISON: CT None, PET/CT None, MRI: None FINDINGS: Mediastinal SUV mean is 3.2. Hepatic parenchyma SUV mean is 3.5. SKULL BASE AND NECK: Right lower neck lymph node SUV 5.5 which is not enlarged. CHEST, MEDIASTINUM, AND HILAR REGION: * Left breast skin thickening and edema. Suspected mass with biopsy clip measuring 21 x 21 mm. Max S UV of the mass 19.04. * There is extensive involvement extending around the right breast in totality right breast involvem ent max SUV 22.0. * Multiple nodes are identified including axillary lymph node max SUV 23 measuring up to 34 mm. * Lymph nodes extend to the subcutaneous pectoral region * Right internal mammary gland lymph nodes near the higher max SUV 9.3 * Right medial chest wall/breast lymph node max SUV 4.2 ABDOMEN AND PELVIS: No suspicious radiotracer activity. MUSCULOSKELETAL STRUCTURES: No suspicious radiotracer activity. OTHER CT: Atherosclerosis of the arterial vasculature including the coronary arteries. Postsurgical changes to the gastric lumen. Right nonobstructing renal calculus measuring 4 mm. Arthro sclerosis of the arterial vasculature. The uterus is surgically absent. The gallbladder surgically ab sent. Partially calcified granuloma in the subcutaneous tissues of the left lower abdomen. Heart is m ildly enlarged for size. IMPRESSION: Extensive right breast FDG activity compatible with primary malignancy with suspected lymphatic invol vement with extensive irregular uptake throughout the right breast. There are enlarged right axillary lymph nodes, right low neck lymph nodes, right internal mammary gland lymph nodes present as well as the medial right breast lymph node just superficial to the chest wall.. [facility], , 02/15/2024 1:28 PM
== END | disposition home or self-care (01) ==
LOC: RADPETMAIN 13:07
PROVIDERS: ATTEND Surgery
DX: R59.0 Localized enlarged lymph nodes (principal); C50.811 Malignant neoplasm of overlapping sites of right female breast; N20.0 Calculus of kidney
CPT/HCPCS: 78815; A9552

== ENCOUNTER → 2024-02-17 | Outpatient (CLI) | payer MEDICARE, OTHER ==
--- NOTE | 2024-02-18 07:49 | BMR ---
EXAM DATE: 02/17/2024 EXAM DESCRIPTION: MRI-Breast Bilat (W/WO Contrast) INDICATION: Recent diagnosis of right breast cancer, pretreatment staging COMPARISON: PRIOR MRIs: None. Correlation to mammograms: 01/29/2024, 02/06/2024, 02/07/2024. Correlation to ultrasound: 02/07/2024. PET-CT 02/14/2024 CONTRAST: Nine cc Gadavist IV gadolinium contrast TECHNIQUE: Study was performed at [facility] with Radiologic interpretation by [facility] Multiplanar multisequence MR imaging of both breasts was performed with a dedicated breast coil. Images were obtained before and after administration of IV gadolinium, using the standard breast mass protocol. Computer aided detection was utilized for interpretation. FINDINGS: LMP: Postmenopausal General breast composition: There are scattered areas of fibroglandular tissue Background parenchymal enhancement: Moderate RIGHT BREAST: The entire right breast parenchyma demonstrates abnormal enhancement estimating at least 12.0 x 10.0 x 9.0 cm, predominantly along the lateral breast. There is extension into the nipple with abnormal enhancement of the nippleareolar complex. There is diffuse skin thickening and edema of the right breast. There is a 1.1 x 1.0 cm irregular mass just anterior to the pectoralis muscle at approximately 4-5 o'clock, 13 cm from the nipple. Abnormal enhancement extends to the pectoralis muscle with possible tenting, however there is no abnormal enhancement of the muscle to suggest direct invasion. LEFT BREAST: The T2 weighted series shows no areas of abnormal signal intensity. Review of the dynamic series shows no early or abnormal enhancement. LYMPH NODES: There are at least 8 pathologic appearing right axillary lymph nodes the largest of which estimates 5.1 x 4.3 cm. Abnormal appearing intra pectoral lymph nodes. Pathologic appearing 0.9 cm internal mammary lymph node. No evidence of left axillary or internal mammary adenopathy. IMPRESSION: RIGHT BREAST: Extensive malignancy in the right breast estimating 12.0 x 10.0 x 9.0 cm with involvement of the nipple and diffuse skin thickening with patchy enhancement concerning for dermal involvement. Additional 1.1 cm irregular mass at 4-5 o'clock, 13 cm from the nipple, lower inner quadrant is considered malignant. Marked right axillary and intra pectoral adenopathy consistent with metastasis. There is a FDG avid lymph node at the level of the clavicle seen PET CT, not included in this examination. LEFT BREAST: No MR evidence of malignancy. OVERALL ASSESSMENT -- BI-RADS 6: Known Biopsy proven Malignancy MTDD
== END | disposition home or self-care (01) ==
LOC: RADMRIMAIN 08:51
PROVIDERS: ATTEND Surgery
DX: C50.811 Malignant neoplasm of overlapping sites of right female breast (principal); C50.812 Malignant neoplasm of overlapping sites of left female breast; R23.4 Changes in skin texture
CPT/HCPCS: C8908; A9585; 77049

== ENCOUNTER → 2024-02-21 | Outpatient (CLI) | payer MEDICARE ==
--- NOTE | 2024-02-21 08:53 | P.PN ---
Subjective Progress Note Date: 02/21/24 Principal diagnosis: right breast invasive ductal cancer Miriam is a 68 year old female with a biopsy proven right breast cancer. She had a PET scan on 02-14-24 which showed right breast uprtake and suspected lymphatic involvement of rhe right axillary, right low neck, and right internal mammary nodes. MRI of the brain no mets. MRI of the breast extensive malignancy of the right breast 12 by 10 by 9 cm. diffuse involvement of the skin, and right axillary, and intrapectoral nodes. Skin biopsy on 02-13-24 dermal involvement with cancer. note Dr. Shepard reviewed. 02-14-24; curative intent vs palliative intent to treat discussed with the patient, curitive intent would treat with chemotherapy and keytruda Comes today with her for results of the skin biopsy of the right breast. This did show dermal invasion with cancer. Objective - Constitutional General appearance: Present: cooperative - EENT Eyes: Present: EOMI ENT: Present: hearing grossly normal - Neck Neck: Present: normal ROM - Respiratory Respiratory: bilateral: CTA - Cardiovascular Heart sounds: normal: S1, S2 - Psychiatric Psychiatric: Present: A&O x's 3, appropriate affect, intact judgment & insight - Additional findings Additional findings: Breast examination: Right breast swollen/erythematous/biopsy site clean and dry Palpation: Right breast: Multi positional exam large mass occupying the majority of the right breast approximately 10 x 9 cm in size with skin changes nutrition representative of few day rash Right axilla: Large node in the right axilla, this is not fixed Left breast: Multi positional exam no dominant masses or nodules of concern Left axilla: No adenopathy of concern Assessment and Plan Assessment: Impression: Invasive ductal carcinoma right breast/dermal involvement/consistent with inflammatory carcinoma/PET scan positive regional disease, no evidence of brain, bone, or visceral involvement Plan: Removed sutures right breast Follow-up with medical oncology appointment later today, neoadjuvant chemotherapy probable Keytruda Potential surgery in the future Follow-up in 2 months Follow-up sooner any questions or concerns CC: Dr. Marcus There is some concern that on the PET scan report there was questioning of a lesion in the left breast as well this will be reviewed with radiology
[2024-02-21 09:01] VITALS: BP 118/78; PULSE 64; RESP 16; TEMP 98.4
== END ==
LOC: WWCWWP 08:03
PROVIDERS: ATTEND Surgery
DX: C50.911 Malignant neoplasm of unspecified site of right female breast (principal); Z88.5 Allergy status to narcotic agent; Z88.8 Allergy status to other drugs, medicaments and biological substances; Z88.0 Allergy status to penicillin; Z87.891 Personal history of nicotine dependence

== ENCOUNTER 2024-03-03 06:11 | Day surgery (SDC) | payer MEDICARE, OTHER ==
[2024-02-27 11:50] VITALS: BMI 39.0
[~2024-03-03 06:11] MED LIST changes: +LIDOCAINE 1% (10MG/ML) FOR IV START INTRADERMA PRN; +Pre Op ABX Message 1 EACH MISC MISCELLANE ONE; -SODIUM CHLORIDE 0.9% 2,000 ML IV ONE; +droPERidol 5 MG/2 ML VIAL IVP ONE
[2024-03-03] MEDS ORDERED: fentaNYL (PF) 50 MCG/ML 2 ML AMP IV PRN (07:00)
[2024-03-03 07:17] LABS: Glucose,Whole Blood 108 mg/dL (70-110)
[2024-03-03] MEDS: HEPARIN SODIUM,PORCINE 100 UNIT/ML 5 ML VIAL IV ONE (07:23)
[2024-03-03] MEDS: BUPIVACAINE (PF) 0.25% 30 ML VIAL SQ ONE ×2 (07:23)
[2024-03-03] MEDS: IOPAMIDOL-370 100ML BTL MISCELLANE ONE (07:24)
[2024-03-03] MEDS: LACTATED RINGERS 1,000 ML IV SCH (07:30)
[2024-03-03] MEDS: ACETAMINOPHEN TAB 500 MG TAB PO PRN (07:31)
[2024-03-03] MEDS: ONDANSETRON 4 MG/2 ML VIAL IVP ONE (07:31)
[2024-03-03] MEDS: DEXAMETHASONE SOD PHOSPHATE 4 MG/ML 1 ML VIAL IV ONE (07:32)
[2024-03-03] MEDS: HEPARIN SODIUM,PORCINE 5,000 UNIT/ML 1 ML VIAL SQ PRN (07:32)
[2024-03-03 07:34] LABS: HCT 37.6 % (34.0-46.0); HGB 12.6 gm/dL (11.4-16.0); MCH 29.3 pg (25.0-35.0); MCHC 33.6 g/dL (31.0-37.0); MCV 87.2 fL (80.0-100.0); Mean Platelet Volume 7.9; Platelet Count 305 k/uL (150-450); RBC 4.31 m/uL (3.80-5.40); RDW 13.4 % (11.5-15.5); WBC 6.3 k/uL (3.8-10.6)
[2024-03-03] MEDS ORDERED: ceFAZolin 1 GM/50 ML BAG (PMX) ONE (07:40)
[2024-03-03] MEDS ORDERED: KETAMINE HCL IN 0.9 % NACL 50 MG/5 ML SYRINGE ONE (07:40)
[2024-03-03] MEDS ORDERED: MIDAZOLAM 2 MG/2 ML VIAL ONE (07:40)
[2024-03-03] MEDS ORDERED: PHENYLEPHRINE-0.9% NACL SYG 1,000 MCG/10 ML SYRINGE ONE (07:40)
[2024-03-03] MEDS ORDERED: fentaNYL (PF) 50 MCG/ML 2 ML AMP ONE (07:40)
[2024-03-03] MEDS ORDERED: PROPOFOL 10 MG/ML 20 ML VIAL IV ONE (07:40)
[2024-03-03] MEDS: IV FLUID CONTINUATION 1,000 ML IV ONE (07:41)
--- NOTE | 2024-03-03 07:41 | P.GSHP ---
History of Present Illness H&P Date: 03/03/24 Chief Complaint: Right breast cancer This is a 8-year-old female with history of right breast cancer. Patient presents today for Port-A-Cath placement. Past Medical History Past Medical History: Asthma, Cancer, Diabetes Mellitus, Fibromyalgia, GERD/Reflux, Hyperlipidemia, Osteoarthritis (OA), Supraventricular Tachycardia (SVT), Thyroid Disorder Additional Past Medical History / Comment(s): Basil carcinoma. Rt breast cancer- no chemo at this time, no radisation.hx migraines, hx heart murmur and "rapid heart rate", Degenerative Disc Disease, back pain, lap band . Type II diabetic NIDDM, kidnety stones. Miscarriage at age 17years old. History of Any Multi-Drug Resistant Organisms: None Reported Past Surgical History: Appendectomy, Bariatric Surgery, Cardiac Ablation, Cholecystectomy, Heart Catheterization, Hernia Repair, Hysterectomy, Joint Replacement, Orthopedic Surgery, Tonsillectomy, Tubal Ligation Additional Past Surgical History / Comment(s): lithotripsy, lap band with hiatal hernia repair - lap band removed on 06/06/20, shemar foot surgery, shemar shoulder surgery, shemar knee arthroscopy, D&C, shemar carpal tunnel, fx rt arm/humurus repair, oophorectomy, sinus surgery,laparoscopy x 3, left knee replaced, gastric sleeve done 06/06/[address] Jaimes. Past Anesthesia/Blood Transfusion Reactions: Family History of Problems w/ Anesthesia, Postoperative Nausea & Vomiting (PONV) Additional Past Anesthesia/Blood Transfusion Reaction / Comment(s): mother- nausea. Not sure if she has had a blood transfusion. Smoking Status: Former smoker - Past Family History Mother Family Medical History: Cancer, CVA/TIA Additional Family Medical History / Comment(s): CVA x 5. breast cancer Father Family Medical History: Deep Vein Thrombosis (DVT) Medications and Allergies Home Medications Medication Instructions Recorded Confirmed Type ALPRAZolam [Xanax] 0.25 mg PO HS PRN 05/28/14 02/27/24 History Atenolol [Tenormin] 75 mg PO HS 05/28/14 02/27/24 History Fluticasone Propion/Salmeterol 1 inhalation PO DAILY PRN 05/28/14 02/27/24 History [Advair 250-50 Diskus] Atorvastatin [Lipitor] 20 mg PO QAM 05/04/15 02/27/24 History Albuterol Inhaler [Ventolin Hfa 1 - 2 puff INHALATION RT-Q6H PRN 12/11/17 02/27/24 History Inhaler] Cetirizine HCl [Zyrtec] 5 mg PO HS 12/11/17 02/27/24 History Cholecalciferol [Vitamin D3 (25 5,000 unit PO QAM 12/11/17 02/27/24 History Mcg = 1000 Iu)] DULoxetine HCL [Cymbalta] 60 mg PO HS 12/11/17 02/27/24 History Levothyroxine Sodium [Levo-T] 75 mcg PO QAM 12/11/17 02/27/24 History Baclofen [Lioresal] 10 mg PO TID 03/22/20 02/27/24 History Melatonin [Melatonin Tr] 10 mg PO HS PRN 05/30/20 02/27/24 History Omeprazole 20 mg PO HS 05/30/20 02/27/24 History Temazepam [Restoril] 15 mg PO HS 06/03/20 02/27/24 History Ondansetron Odt [Zofran Odt] 4 mg PO Q8HR PRN #9 tab 06/08/20 02/27/24 Rx HYDROcodone/APAP 7.5-325MG [[place] 1 tab PO Q8H PRN 12/05/20 02/27/24 History 7.5-325] Vitamin C/Biotin [Hair, Skin and 1 tab PO DAILY 12/05/20 02/27/24 History Nails Chew] Actos 45 mg PO QAM 02/27/24 03/03/24 History Vivascale 1 dose PO BID 02/27/24 02/27/24 History Allergies Allergy/AdvReac Type Severity Reaction Status Date / Time iodine Allergy Rash/Hives Verified 03/03/24 06:51 Penicillins Allergy Anaphylaxis Verified 03/03/24 06:51 aspartame AdvReac Unknown Unknown Verified 03/03/24 06:51 metal Allergy Rash/Hives Uncoded 03/03/24 06:51 Surgical - Exam - General well developed, well nourished, no distress - Eyes PERRL - ENT normal pinna - Neck no masses - Respiratory normal expansion - Cardiovascular Rhythm: regular - Abdomen Abdomen: soft, non tender Results - Labs 03/03/24 07:23 Assessment and Plan Assessment: Right breast cancer. Will perform Port-A-Cath placement.
[2024-03-03] MEDS: SODIUM CHLORIDE 0.9% 50 ML with ceFAZolin 2,000 MG IV ONE (07:43)
[2024-03-03 07:47] VITALS: TEMP 97.6
[2024-03-03 07:57] LABS: African American GFR (CKD) 78 (>60 ml/min/1.73 sqM); Anion Gap 8 mmol/L; Blood Urea Nitrogen 23 mg/dL (7-17); Calcium 9.3 mg/dL (8.4-10.2); Carbon Dioxide 32 mmol/L (22-30); Chloride 101 mmol/L (98-107); Glucose 113 mg/dL (74-99); Non-African American GFR(CKD) 67 (>60 ml/min/1.73 sqM); Potassium 3.9 mmol/L (3.5-5.1); Sodium 141 mmol/L (137-145)
--- NOTE | 2024-03-03 08:16 | P.OP ---
Date of Procedure: 03/03/24 Preoperative Diagnosis: Right breast cancer Postoperative Diagnosis: Right breast cancer Procedure(s) Performed: Right subclavian Port-A-Cath Anesthesia: ZA Surgeon: Vamsi Jaimes Estimated Blood Loss (ml): 5 Pathology: none sent Condition: stable Disposition: PACU Description of Procedure: The patient was placed on the operating table in the supine position. The patient received IV sedation. The patient's chest was prepped and draped in the usual sterile fashion. A roll had been placed between the shoulder blades in a longitudinal fashion. After prepping and draping the skin was anesthetized 1% local Xylocaine. And then using the Seldinger technique the subclavian vein was cannulated. A wire was placed into the vein and fluoroscopy position the wire at the atrial caval junction. Next the dilator sheath was placed over top the wire and the wire was withdrawn. The catheter was positioned at the atriocaval position. The catheter was placed through the sheath after the dilator was withdrawn. The sheath was then withdrawn. Position of the catheter was co nfirmed with fluoroscopy. The Port-A-Cath was connected to the catheter. The Port-A-Cath was flushed with saline and then heparinized saline. The skin was closed interrupted 3-0 Monocryl suture. Dermabond was applied. Patient tolerated procedure well and was sent to recovery room stable condition.
[2024-03-03 08:28] VITALS: RESP 16
[2024-03-03 08:55] VITALS: BP 108/68; PULSE 54
--- NOTE | 2024-03-03 08:55 | FL ---
EXAMINATION TYPE: FL guided central line placement DATE OF EXAM: 03/03/2024 FLUOROSCOPY PORT-A-CATH PLACEMENT, 7 SEC FLUORO, DAP .[id number] Gycm2. One image is submitted. A fluoroscopic image, frontal view of the chest shows left anterior chest wall injection port with miles bclavian access and catheter tip probably at the upper SVC region. [facility], , 03/03/2024 8:52 AM
--- NOTE | 2024-03-03 09:12 | XR ---
EXAMINATION TYPE: XR chest 1V portable DATE OF EXAM: 03/03/2024 8:35 AM COMPARISON: 09/18/2010 CLINICAL INDICATION: Female, 68 years old with history of Right subclavian Port-A-Cath, , FINDINGS: The heart is mildly enlarged. Aorta within normal limits. Mild interstitial prominence in part be chr onic. Left anterior chest wall injection port with catheter tip at the mid SVC level. No nathalia consol idation or pleural effusion. No appreciable pneumothorax. IMPRESSION: Mild cardiomegaly. Left anterior chest wall injection port with subclavian access and catheter tip at the mid SVC level. [facility], , 03/03/2024 9:10 AM
== END 2024-03-03 09:28 | disposition home or self-care (01) ==
LOC: OR 06:11
PROVIDERS: ATTEND Surgery
DX: C50.911 Malignant neoplasm of unspecified site of right female breast (principal); I47.10 Supraventricular tachycardia, unspecified; I11.9 Hypertensive heart disease without heart failure; E11.9 Type 2 diabetes mellitus without complications; E78.5 Hyperlipidemia, unspecified; E03.9 Hypothyroidism, unspecified; M79.7 Fibromyalgia; J45.909 Unspecified asthma, uncomplicated; K21.9 Gastro-esophageal reflux disease without esophagitis; M19.90 Unspecified osteoarthritis, unspecified site; Z91.89 Other specified personal risk factors, not elsewhere classified; Z79.890 Hormone replacement therapy; Z79.84 Long term (current) use of oral hypoglycemic drugs; Z79.51 Long term (current) use of inhaled steroids; Z79.899 Other long term (current) drug therapy; Z87.891 Personal history of nicotine dependence; Z88.8 Allergy status to other drugs, medicaments and biological substances; Z88.0 Allergy status to penicillin; Z91.02 Food additives allergy status; Z84.89 Family history of other specified conditions
CPT/HCPCS: 80048; 85027; 77001; 71045; 36561; C1788; J2250; J1644; J1642; J1100; J2405; J0690 ×2; J3010; J2704; J2371; J0665

== ENCOUNTER → 2024-03-03 | Outpatient (CLI) | payer MEDICARE, OTHER ==
--- NOTE | 2024-03-03 17:37 | CA ---
Transthoracic Echo Report Name: Nela Caba Age: 68 Gender: F : 1955 Exam Date: 03/03/2024 10:09 Exam Location: [facility] Ht (in): 60 Wt (lb): 200 Ordering Physician: Venkat Shepard MD Attending/Referring Phys: Venkat Shepard MD Automatic Lump Making Machine Tender Tonie Simental, [id number] Procedure CPT: Indications: breast ca Cardiac Hx: Technical Quality: Good Contrast 1: Total Dose (mL): Contrast 2: Total Dose (mL): MEASUREMENTS (Male / Female) Normal Values 2D ECHO LV Diastolic Diameter PLAX 4.2 cm 4.2 - 5.9 / 3.9 - 5.3 cm LV Systolic Diameter PLAX 2.8 cm IVS Diastolic Thickness 1.1 cm 0.6 - 1.0 / 0.6 - 0.9 cm LVPW Diastolic Thickness 1.1 cm 0.6 - 1.0 / 0.6 - 0.9 cm LV Relative Wall Thickness 0.5 RV Internal Dim ED PLAX 2.7 cm LA Systolic Diameter LX 3.6 cm 3.0 - 4.0 / 2.7 - 3.8 cm LV Diastolic Volume MOD 4C 62.0 cm??? LV Systolic Volume MOD 4C 30.3 cm??? LV Ejection Fraction MOD 4C 51.1 % LV Cardiac Index MOD 4C 882.9 cm???/min???m??? LV Diastolic Length 4C 8.8 cm LV Systolic Length 4C 7.1 cm LV Diastolic Volume MOD 2C 83.4 cm??? LV Systolic Volume MOD 2C 38.2 cm??? LV Ejection Fraction MOD 2C 54.2 % LV Cardiac Index MOD 2C 1259.6 cm???/min???m??? LV Diastolic Length 2C 9.1 cm LV Systolic Length 2C 7.6 cm M-MODE Aortic Root Diameter MM 3.2 cm LA Systolic Diameter MM 2.0 cm LA Ao Ratio MM 0.6 DOPPLER AV Peak Velocity 155.6 cm/s AV Peak Gradient 9.7 mmHg Mitral E Point Velocity 110.5 cm/s Mitral A Point Velocity 106.8 cm/s Mitral E to A Ratio 1.0 MV Deceleration Time 312.6 ms MV E' Velocity 5.4 cm/s Mitral E to MV E' Ratio 20.5 TR Peak Velocity 275.1 cm/s TR Peak Gradient 30.3 mmHg Right Ventricular Systolic Press 40.3 mmHg FINDINGS Left Ventricle Left ventricular ejection fraction is estimated at 55-60 %. Left ventricular cavity size normal. Mildly increased septal wall thickness. Mildly increased posterior wall thickness. Right Ventricle Normal right ventricular size. Mild pulmonary hypertension. Right Atrium Normal right atrial size. No right atrial thrombus or mass seen. Left Atrium Normal left atrial size. No left atrial thrombus or mass present. Mitral Valve Structurally normal mitral valve. Mild to moderate mitral regurgitation. Aortic Valve Trileaflet aortic valve. No aortic valve stenosis or regurgitation. Tricuspid Valve Structurally normal tricuspid valve. Mild tricuspid regurgitation. Pulmonic Valve Structurally normal pulmonic valve. No pulmonic regurgitation. Pericardium No pericardial effusion. Aorta Normal size aortic root and proximal ascending aorta. CONCLUSIONS Normal biventricular systolic function Mild to moderate mitral regurgitation No pericardial effusion Previewed by: Dr. Gael Royal MD (Electronically Signed) Final Date: 03 March 2024 17:36
== END | disposition home or self-care (01) ==
LOC: RADECHMAIN 09:47
PROVIDERS: ATTEND Internal Medicine Hematology & Oncology
DX: Z01.818 Encounter for other preprocedural examination (principal); I34.0 Nonrheumatic mitral (valve) insufficiency; C50.811 Malignant neoplasm of overlapping sites of right female breast; Z80.3 Family history of malignant neoplasm of breast; Z71.1 Person with feared health complaint in whom no diagnosis is made; E78.5 Hyperlipidemia, unspecified; I10 Essential (primary) hypertension; E11.9 Type 2 diabetes mellitus without complications
CPT/HCPCS: 93306

== ENCOUNTER 2024-05-30 16:49 | Inpatient (IN) | payer MEDICARE, OTHER ==
[2024-05-30 17:00] LABS: Glucose,Whole Blood 145 mg/dL (70-110)
--- NOTE | 2024-05-30 17:25 | ED ---
Neuro HPI - General Chief Complaint: Neuro Symptoms/Deficit Stated Complaint: slurred speech, weakness Time Seen by Provider: 05/30/24 17:03 Source: patient, RN notes reviewed, old records reviewed Mode of arrival: ambulatory Limitations: no limitations - History of Present Illness Is the patient presenting with stroke symptoms?: Yes -: days(s) Initial Comments: This is a 68-year-old female to the ER for evaluation patient presents today for evaluation of slurred speech. Recently started new medication, per is certainly going through chemotherapy currently for breast cancer. Has some difficulty w ith slurred speech and finding her words prior to arrival though symptoms have resolved patient was also having some expressive aphasia Location: speech History of same: No Place: home Severity: mild Quality: constant Improves With: time Worsens With: none Context: sudden onset Associated Symptoms: denies other symptoms Treatments Prior to Arrival: none - Related Data Home Medications: Home Medications Medication Instructions Recorded Confirmed ALPRAZolam [Xanax] 0.25 mg PO HS PRN 05/28/14 04/13/24 Atenolol [Tenormin] 75 mg PO HS 05/28/14 04/13/24 Fluticasone Propion/Salmeterol 1 inhalation PO DAILY PRN 05/28/14 04/13/24 [Advair 250-50 Diskus] Atorvastatin [Lipitor] 20 mg PO QAM 05/04/15 04/13/24 Albuterol Inhaler [Ventolin Hfa 1 - 2 puff INHALATION RT-Q6H PRN 12/11/17 04/13/24 Inhaler] Cetirizine HCl [Zyrtec] 5 mg PO HS 12/11/17 04/13/24 Cholecalciferol [Vitamin D3 (25 5,000 unit PO QAM 12/11/17 04/13/24 Mcg = 1000 Iu)] DULoxetine HCL [Cymbalta] 60 mg PO HS 12/11/17 04/13/24 Levothyroxine Sodium [Levo-T] 75 mcg PO QAM 12/11/17 04/13/24 Baclofen [Lioresal] 10 mg PO TID 03/22/20 04/13/24 Melatonin [Melatonin Tr] 10 mg PO HS PRN 05/30/20 04/13/24 Omeprazole 20 mg PO HS 05/30/20 04/13/24 Temazepam [Restoril] 15 mg PO HS 06/03/20 04/13/24 HYDROcodone/APAP 7.5-325MG [[place] 1 tab PO Q8H PRN 12/05/20 04/13/24 7.5-325] Vitamin C/Biotin [Hair, Skin and 1 tab PO DAILY 12/05/20 04/13/24 Nails Chew] Actos 45 mg PO QAM 02/27/24 04/13/24 Vivascale 1 dose PO BID 02/27/24 04/13/24 Previous Rx's Medication Instructions Recorded Ondansetron Odt [Zofran Odt] 4 mg PO Q8HR PRN #9 tab 06/08/20 Allergies/Adverse Reactions: Allergies Allergy/AdvReac Type Severity Reaction Status Date / Time iodine Allergy Rash/Hives Verified 05/30/24 17:01 Penicillins Allergy Anaphylaxis Verified 05/30/24 17:01 aspartame AdvReac Unknown Unknown Verified 05/30/24 17:01 metal Allergy Rash/Hives Uncoded 05/30/24 17:01 Review of Systems ROS Statement: Those systems with pertinent positive or pertinent negative responses have been documented in the HPI. ROS Other: All systems not noted in ROS Statement are negative. General Exam - General Exam Comments Initial Comments: NIH was 0 no current focal neurological deficits Limitations: no limitations General appearance: alert, in no apparent distress Head exam: Present: atraumatic, normocephalic, normal inspection Eye exam: Present: normal appearance, PERRL, EOMI. Absent: scleral icterus, conjunctival injection, periorbital swelling ENT exam: Present: normal exam, mucous membranes moist Neck exam: Present: normal inspection. Absent: tenderness, meningismus, lymphadenopathy Respiratory exam: Present: normal lung sounds bilaterally. Absent: respiratory distress, wheezes, rales, rhonchi, stridor Cardiovascular Exam: Present: regular rate, normal rhythm, normal heart sounds. Absent: systolic murmur, diastolic murmur, rubs, gallop, clicks GI/Abdominal exam: Present: soft, normal bowel sounds. Absent: distended, tenderness, guarding, rebound, rigid Extremities exam: Present: normal inspection, full ROM, normal capillary refill. Absent: tenderness, pedal edema, joint swelling, calf tenderness Back exam: Present: normal inspection Neurological exam: Present: alert, oriented X3, CN II-XII intact Psychiatric exam: Present: normal affect, normal mood Skin exam: Present: warm, dry, intact, normal color. Absent: rash Stroke MDM - Lab Data Result diagrams: 05/30/24 17:26 05/30/24 17:26 Lab Results 05/30/24 05/30/24 05/30/24 Range/Units 16:58 17:26 17:26 WBC 2.4 L (3.8-10.6) k/uL RBC 2.87 L (3.80-5.40) m/uL Hgb 8.9 L (11.4-16.0) gm/dL Hct 26.6 L (34.0-46.0) % MCV 92.8 (80.0-100.0) fL MCH 31.2 (25.0-35.0) pg MCHC 33.6 (31.0-37.0) g/dL RDW 19.2 H (11.5-15.5) % Plt Count 204 (150-450) k/uL MPV 7.7 Neutrophils % 73 % Lymphocytes % 19 % Monocytes % 6 % Eosinophils % 1 % Basophils % 0 % Neutrophils # 1.7 (1.3-7.7) k/uL Lymphocytes # 0.5 L (1.0-4.8) k/uL Monocytes # 0.1 (0-1.0) k/uL Eosinophils # 0.0 (0-0.7) k/uL Basophils # 0.0 (0-0.2) k/uL Anisocytosis Slight Macrocytosis Slight PT 10.2 (10.0-12.5) sec INR 0.9 (<1.2) APTT 21.5 L (22.0-30.0) sec Sodium (137-145) mmol/L Potassium (3.5-5.1) mmol/L Chloride (98-107) mmol/L Carbon Dioxide (22-30) mmol/L Anion Gap mmol/L BUN (7-17) mg/dL Creatinine (0.52-1.04) mg/dL Est GFR (CKD-EPI)AfAm (>60 ml/min/1.73 sqM) Est GFR (CKD-EPI)NonAf (>60 ml/min/1.73 sqM) Glucose (74-99) mg/dL POC Glucose (mg/dL) 145 H (70-110) mg/dL POC Glu [employer] ID Devante Champagne Calcium (8.4-10.2) mg/dL Total Bilirubin (0.2-1.3) mg/dL AST (14-36) U/L ALT (4-34) U/L Alkaline Phosphatase (38-126) U/L Creatine Kinase (30-135) U/L Troponin I (0.000-0.034) ng/mL Total Protein (6.3-8.2) g/dL Albumin (3.5-5.0) g/dL 05/30/24 05/30/24 Range/Units 17:26 17:26 WBC (3.8-10.6) k/uL RBC (3.80-5.40) m/uL Hgb (11.4-16.0) gm/dL Hct (34.0-46.0) % MCV (80.0-100.0) fL MCH (25.0-35.0) pg MCHC (31.0-37.0) g/dL RDW (11.5-15.5) % Plt Count (150-450) k/uL MPV Neutrophils % % Lymphocytes % % Monocytes % % Eosinophils % % Basophils % % Neutrophils # (1.3-7.7) k/uL Lymphocytes # (1.0-4.8) k/uL Monocytes # (0-1.0) k/uL Eosinophils # (0-0.7) k/uL Basophils # (0-0.2) k/uL Anisocytosis Macrocytosis PT (10.0-12.5) sec INR (<1.2) APTT (22.0-30.0) sec Sodium 136 L (137-145) mmol/L Potassium 3.6 (3.5-5.1) mmol/L Chloride 103 (98-107) mmol/L Carbon Dioxide 25 (22-30) mmol/L Anion Gap 8 mmol/L BUN 24 H (7-17) mg/dL Creatinine 0.98 (0.52-1.04) mg/dL Est GFR (CKD-EPI)AfAm 69 (>60 ml/min/1.73 sqM) Est GFR (CKD-EPI)NonAf 60 (>60 ml/min/1.73 sqM) Glucose 135 H (74-99) mg/dL POC Glucose (mg/dL) (70-110) mg/dL POC Glu [place] [employer] ID Calcium 8.8 (8.4-10.2) mg/dL Total Bilirubin 0.5 (0.2-1.3) mg/dL AST 25 (14-36) U/L ALT 24 (4-34) U/L Alkaline Phosphatase 64 (38-126) U/L Creatine Kinase 30 (30-135) U/L Troponin I <0.012 (0.000-0.034) ng/mL Total Protein 6.0 L (6.3-8.2) g/dL Albumin 3.5 (3.5-5.0) g/dL - NIH Stroke Scale 1a. Level of Consciousness: (0) alert 1b. LOC Questions: (0) answers correctly 1c. LOC Commands: (0) performs tasks correctly 2. Best Gaze: (0) normal 3. Visual: (0) no visual loss 4. Facial Palsy: (0) normal symmetrical movement 5a. Motor Arm Left: (0) no drift 5b. Motor Arm Right: (0) no drift 6a. Motor Leg Left: (0) no drift 6b. Motor Leg Right: (0) no drift 7. Limb Ataxia: (0) absent 8. Sensory: (0) normal 9. Best Language: (0) no aphasia 10. Dysarthria: (0) normal 11. Extinction/Inattention: (0) no abnormality - Thrombolytic Inclusion/Exclusion Thrombolytic Inclusion Criteria: Symptom Onset < 4.5 h (Symptoms currently resolved) - Medical Decision Making 68 female with nonspecific neurological complaints I was unable to witness patient's expressive aphasia or slurred speech but she did have some neurosymptoms of the right arm no weakness or decrease in sensation noted, patient symptoms do appear to be nonfocal normal CT but patient will admit for observation does not feel comfortable with discharge - Radiology Data Radiology results: report reviewed (CT brain and CTA head and neck negative for acute disease), image reviewed - EKG Data -: EKG Interpreted by Me (EKG is sinus 89 MA 131 QRS 83 QTc 395) Past Medical History Past Medical History: Asthma, Cancer, Diabetes Mellitus, Fibromyalgia, GE RD/Reflux, Hyperlipidemia, Osteoarthritis (OA), Supraventricular Tachycardia (SVT), Thyroid Disorder Additional Past Medical History / Comment(s): Basil carcinoma. Rt breast cancer- no chemo at this time, no radisation.hx migraines, hx heart murmur and "rapid heart rate", Degenerative Disc Disease, back pain, lap band . Type II diabetic NIDDM, kidnety stones. Miscarriage at age 17years old. History of Any Multi-Drug Resistant Organisms: None Reported Past Surgical History: Appendectomy, Bariatric Surgery, Cardiac Ablation, Cholecystectomy, Heart Catheterization, Hernia Repair, Hysterectomy, Joint Replacement, Orthopedic Surgery, Tonsillectomy, Tubal Ligation Additional Past Surgical History / Comment(s): lithotripsy, lap band with hiatal hernia repair - lap band removed on 06/06/20, shemar foot surgery, shemar shoulder surgery, shemar knee arthroscopy, D&C, shemar carpal tunnel, fx rt arm/humurus rep air, oophorectomy, sinus surgery,laparoscopy x 3, left knee replaced, gastric sleeve done 06/06/[address] Jaimes. Past Anesthesia/Blood Transfusion Reactions: Family History of Problems w/ Anesthesia, Postoperative Nausea & Vomiting (PONV) Additional Past Anesthesia/Blood Transfusion Reaction / Comment(s): mother- nausea. Not sure if she has had a blood transfusion. Past Psychological History: Anxiety Smoking Status: Former smoker Past Alcohol Use History: Rare Past Drug Use History: None Reported - Past Family History Mother Family Medical History: Cancer, CVA/TIA Additional Family Medical History / Comment(s): CVA x 5. breast cancer Father Family Medical History: Deep Vein Thrombosis (DVT) Course Vital Signs 05/30/24 05/30/24 16:55 21:01 Temperature 98 F Pulse Rate 100 106 H Respiratory 18 18 Rate Blood Pressure 142/82 136/80 O2 Sat by Pulse 100 97 Oximetry - Reevaluation(s) Reevaluation #1: 05/30/24 20:02 Medical record is reviewed Reevaluation #2: 05/30/24 20:02 Patient symptoms are improved and remain improved here in the ER Patient is without neurological complaint Patient's speech is normal Reevaluation #3: 05/30/24 22:45 On reevaluation patient was having right arm numbness and tingling and involuntary movements, paresthesia type symptoms Slurred speech does appear to have and remain resolved Reevaluation #4: Was pt. sent in by a medical professional or institution (JAYESH Tom, INVESTIGATIVE AGENT, urgent care, hospital, or retirement...) When possible be specific @ -no Did you speak to anyone other than the patient for history (EMS, parent, family, police, friend...)? What history was obtained from this source @ -no Did you review nursing and triage notes (agree or disagree)? Why? @ -agree Are old charts reviewed (outside hosp., previous admission, EMS record, old EKG, old radiological studies, urgent care reports/EKG's, retirement records)? Report findings @ -yes Differential Diagnosis (chest pain, altered mental status, abdominal pain women, abdominal pain men, vaginal bleeding, weakness, fever, dyspnea, syncope, headache, dizziness, GI bleed, back pain, seizure, CVA, palpatations, mental health, musculoskeletal)? @ -prior EKG interpreted by me (3pts min.). @ -yes X-rays interpreted by me (1pt min.). @ -yes negative for acute disease CT interpreted by me (1pt min.). @ -no U/S interpreted by me (1pt. min.). @ -no What testing was considered but not performed or refused? (CT, X-rays, U/S, labs)? Why? @ -none What meds were considered but not given or refused? Why? @ -none Did you discuss the management of the patient with other professionals (professionals i.e. JAYESH Tom, INVESTIGATIVE AGENT, lab, RT, psych nurse, criminal justice social worker, welder setter resistance machine, teacher, public records officer, caser up)? Give summary @ -no Was smoking cessation discussed for >3mins.? @ -no Was critical care preformed (if so, how long)? @ -no Were there social determinants of health that impacted care today? How? (Homelessness, low income, unemployed, alcoholism, drug addiction, transportation, low edu. Level, literacy, decrease access to med. care, nursing home, rehab)? @ -none Was there de-escalation of care discussed even if they declined (Discuss DNR or withdrawal of care, Hospice)? DNR status @ -no What co-morbidities impacted this encounter? (DM, HTN, Smoking, COPD, CAD, Cancer, CVA, ARF, Chemo, Hep., AIDS, mental health diagnosis, sleep apnea, morbid obesity)? @ -none Was patient admitted / discharged? Hospital course, mention meds given and route, prescriptions, significant lab abnormalities, going to OR and other pertinent info. @ - Undiagnosed new problem with uncertain prognosis? @ -no Drug Therapy requiring intensive monitoring for toxicity (Heparin, Nitro, Insulin, Cardizem)? @ -no Were any procedures done? @ -no Diagnosis/symptom? @ - Acute, or Chronic, or Acute on Chronic? @ -Acute Uncomplicated (without systemic symptoms) or Complicated (systemic symptoms)? @ -Complicated Side effects of treatment? @ -no Exacerbation, Progression, or Severe Exacerbation? @ -exacerbation Poses a threat to life or bodily function? How? (Chest pain, [place], [place], pneumonia, PE, COPD, DKA, ARF, appy, cholecystitis, CVA, Diverticulitis, Homicidal, Suicidal, threat to staff... and all critical care pts) @ -yes Reevaluation #5: Differential CVA Ischemic stroke, hemorrhagic stroke, brain tumor, atypical migraine, Wernicke's encephalopathy, seizure, multiple sclerosis, meningitis, encephalitis, hy poglycemia, Guillain-Damon, electrolytes disturbance, myasthenia gravis.... This is not meant to be an all-inclusive list - Consultations Consultation #1: Spoke with [facility] who agrees to admit this patient Disposition Clinical Impression: Expressive aphasia, Paresthesia, Arm paresthesia, right Disposition: ADMITTED IP TO THIS HOSP Condition: Good Is patient prescribed a controlled substance at d/c from ED?: No Referrals: Mauro Marcus MD [Primary Care Provider] - 1-2 days Time of Disposition: 22:45
[2024-05-30 17:36] LABS: Anisocytosis Slight; Basophils % (A) 0 %; Eosinophils % (A) 1 %; HCT 26.6 % (34.0-46.0); HGB 8.9 gm/dL (11.4-16.0); Lymphocytes # (A) 0.5 k/uL (1.0-4.8); Lymphocytes % (A) 19 %; MCH 31.2 pg (25.0-35.0); MCHC 33.6 g/dL (31.0-37.0); MCV 92.8 fL (80.0-100.0); Macrocytosis Slight; Mean Platelet Volume 7.7; Monocytes # (A) 0.1 k/uL (0-1.0); Monocytes % (A) 6 %; Neutrophils # (A) 1.7 k/uL (1.3-7.7); Neutrophils % (A) 73 %; Platelet Count 204 k/uL (150-450); RBC 2.87 m/uL (3.80-5.40); RDW 19.2 % (11.5-15.5); WBC 2.4 k/uL (3.8-10.6)
[2024-05-30] MEDS: FAMOTIDINE 20 MG/2 ML VIAL IV STA (17:41)
[2024-05-30] MEDS: diphenhydrAMINE 50 MG/ML 1 ML VIAL IVP STA (17:41)
[2024-05-30] MEDS: SODIUM CHLORIDE 0.9% 1,000 ML IV STA (17:42)
[2024-05-30] MEDS: methylPREDNISolone SOD SUCCI 125 MG/2 ML VIAL IV STA (17:42)
[2024-05-30 17:44] LABS: ALT 24 U/L (4-34); AST 25 U/L (14-36); African American GFR (CKD) 69 (>60 ml/min/1.73 sqM); Albumin 3.5 g/dL (3.5-5.0); Alkaline Phosphatase 64 U/L (38-126); Anion Gap 8 mmol/L; Blood Urea Nitrogen 24 mg/dL (7-17); Calcium 8.8 mg/dL (8.4-10.2); Carbon Dioxide 25 mmol/L (22-30); Chloride 103 mmol/L (98-107); Creatine Kinase 30 U/L (30-135); Glucose 135 mg/dL (74-99); Non-African American GFR(CKD) 60 (>60 ml/min/1.73 sqM); Potassium 3.6 mmol/L (3.5-5.1); Sodium 136 mmol/L (137-145); Total Bilirubin 0.5 mg/dL (0.2-1.3)
[2024-05-30 17:48] LABS: INR 0.9 (<1.2); Prothrombin Time 10.2 sec (10.0-12.5)
[2024-05-30 17:50] LABS: Partial Thromboplastin Time 21.5 sec (22.0-30.0)
--- NOTE | 2024-05-30 20:31 | CT ---
EXAMINATION TYPE: CODE STROKE: CT brain wo contr CT DLP: 1124.3 mGycm, Automated exposure control for dose reduction was used. DATE OF EXAM: 05/30/2024 8:26 PM COMPARISON: PET CT 02/14/2024, MRI brain 02/14/2024 CLINICAL INDICATION:Female, 68 years old with history of Neuro deficit, acute, stroke suspected, Slur red speech, weakness. TECHNIQUE: Brain: Multiple axial CT images of the brain were obtained without IV contrast. . Coronal and sagitta l reformats reviewed. FINDINGS: Brain: Extra-axial spaces: No abnormal extra-axial fluid collections. Ventricular system: Within normal limits Cerebral parenchyma: No acute intraparenchymal hemorrhage or mass effect. The lieberman-white junction is well differentiated. Nonspecific left basal ganglia calcification. Cerebellum: Unremarkable. Mass effect: No evidence of midline shift. Intracranial vasculature: unremarkable Soft tissues: Normal. Calvarium/osseous structures: No depressed skull fracture. Paranasal sinuses and mastoid air cells: Clear. Aplasia of the bilateral frontal sinuses. Visualized orbits: Bilateral aphakia IMPRESSION: No acute intracranial process. [facility], , 05/30/2024 8:29 PM
--- NOTE | 2024-05-30 20:43 | CT ---
EXAMINATION TYPE: CT angio head neck CT DLP: 592.9 mGycm, Automated exposure control for dose reduction was used. DATE OF EXAM: 05/30/2024 8:31 PM COMPARISON: CT brain of the same date, PET CT 02/14/2024, MRI brain 02/14/2024. CLINICAL INDICATION:Female, 68 years old with history of Neuro deficit, acute, stroke suspected; PHH, Slurred speech, weakness. TECHNIQUE: Axially acquired helical CT angiogram of the head and neck was obtained with contrast util izing 75 cc of Isovue-370 administered intravenously. NASCET criteria used. MIP imaging performed on a separate workstation and submitted for review. FINDINGS: CTA HEAD: No evidence of acute intracranial hemorrhage, mass effect, or midline shift. The ventricles, sulci, a nd cisterns are unremarkable. The visualized portions of the internal carotid arteries, middle cerebral arteries, anterior cerebral arteries, and posterior cerebral arteries are patent. The basilar and vertebral arteries are patent. CTA NECK: Right Carotid System: The common carotid artery and external carotid artery are patent. The carotid bifurcation demonstrate s no evidence of hemodynamically significant stenosis. The remaining portions of the internal carotid artery demonstrate normal size without significant narrowing. Left Carotid System: The common carotid artery and external carotid artery are patent. The carotid bifurcation demonstrate s no evidence of hemodynamically significant stenosis. The remaining portions of the internal carotid artery demonstrate normal size without significant narrowing. Vertebral arteries are patent without evidence hemodynamically significant stenosis. The vertebral ar teries are codominant. There is a three-vessel aortic arch. The origins of the great vessels are patent. No evidence of hemo dynamically significant stenosis. Cardiomegaly with coronary artery calcifications. Dilated main pulmonary artery measuring up to 3.2 c m which can be seen with pulmonary arterial hypertension. Macrocalcification within the left thyroid lobe. Mild multilevel degenerative disc disease of the lower cervical spine. Bilateral aphakia. IMPRESSION: 1. No evidence of dissection of the cervical internal carotid arteries or vertebral arteries or any e vidence of significant stenosis at the carotid bifurcations. 2. No evidence of high-grade stenosis or intracranial aneurysm. [facility], , 05/30/2024 8:41 PM
[2024-05-30] MEDS: ASPIRIN 325 MG TAB PO STA (23:28)
[2024-05-30] MEDS: ATORVASTATIN 80 MG TAB PO SCH (23:28)
[2024-05-30] MEDS: SODIUM CHLORIDE 0.9% 1,000 ML IV SCH (23:28)
[2024-05-31] MEDS: ALPRAZolam 0.25 MG TAB PO STA (01:49)
--- NOTE | 2024-05-31 06:39 | P.HPIM ---
History of Present Illness H&P Date: 05/31/24 History of present illness; 68-year-old lady with past medical history significant for SVT, breast cancer presented the ER because of slurred speech and difficulty in expressing words. Patient apparently was driving in a car with her friend and the friend noted that the patient was not acting her usual self, she noticed that the patient had hard time expressing words and there was some slurring of the speech as well. There was no evidence of any facial droop at that time. There was no weakness of any extremity. Patient felt very lethargic and weak. stated that he did notice some facial droop. There was no complaint of jerking of any extremity. Patient did not lose consciousnes s. There was no current chest pain or shortness of breath. There was no complaint of orthopnea or PND. There was no complaint of shortness of breath at that time. There was no episode of diaphoresis . Because of slurred speech, patient brought to the ER Initial lab work done in the ER showed WBC 2.4, hemoglobin 8.9, platelet count 204, sodium 130s, potassium 3.6, BUN 24, creatinine 0.98, glucose 135 troponin 0.012 EKG done in the ER showed heart rate of89 , no ST segment elevation or depres scarlett seen, no T-wave inversions seen. CT head done showed no acute intracranial process CTA head and neck done showed no significant stenosis, aneurysm or thrombus in the intracranial circulation Patient admitted to internal medicine service REVIEW OF SYSTEMS: CONSTITUTIONAL: No fever, no malaise, no fatigue. HEENT: No recent visual problems or hearing problems. Denied any sore throat. CARDIOVASCULAR: As mentioned above PULMONARY: No shortness of breath, no cough, no hemoptysis. GASTROINTESTINAL: No diarrhea, no nausea, no vomiting, no abdominal pain. NEUROLOGICAL: As mentioned above HEMATOLOGICAL: Denies any bleeding or petechiae. GENITOURINARY: Denies any burning micturition, frequency, or urgency. MUSCULOSKELETAL/RHEUMATOLOGICAL: Denies any joint pain, swelling, or any muscle pain. ENDOCRINE: Denies any polyuria or polydipsia. The rest of the 14-point review of systems is negative. PHYSICAL EXAMINATION: GENERAL: The patient is alert and oriented x3, not in any acute distress. Well developed, well nourished. HEENT: Pupils are round and equally reacting to light. EOMI. No scleral icterus. No conjunctival pallor. Normocephalic, atraumatic. No pharyngeal erythema. No thyromegaly. CARDIOVASCULAR: S1 and S2 present. No murmurs, rubs, or gallops. PULMONARY: Chest is clear to auscultation, no wheezing or crackles. ABDOMEN: Soft, nontender, nondistended, normoactive bowel sounds. No palpable organomegaly. MUSCULOSKELETAL: No joint swelling or deformity. EXTREMITIES: No cyanosis, clubbing, or pedal edema. NEUROLOGICAL: Gross neurological examination did not reveal any focal deficits. SKIN: No rashes. Assessment and plan Strokelike symptoms TIA History of breast cancer, on chemotherapy, last session was last week History of TIA History of hyperlipidemia history of hypothyroidism Monitor vital signs Monitor CBC Monitor CMP Continue telemetry monitoring Serial neurochecks Ordered lipid panel, HbA1c, TSH levels Ordered 2D echo Ordered MRI brain Started aspirin, Lipitor Consult neurology Labs and medication were reviewed.. Continue same treatment. Continue with symptomatic treatment. Resume home medication. Monitor labs and vitals. DVT and GI prophylaxis. Further recommendations as per clinical course of the patient Dictation was produced using [employer] dictation software. please excuse any grammatical, word or spelling errors. Past Medical History Past Medical History: Asthma, Cancer, Diabetes Mellitus, Fibromyalgia, GERD/Reflux, Hyperlipidemia, Osteoarthritis (OA), Supraventricular Tachycardia (SVT), Thyroid Disorder Additional Past Medical History / Comment(s): Basil carcinoma. Rt breast cancer- no chemo at this time, no radisation.hx migraines, hx heart murmur and "rapid heart rate", Degenerative Disc Disease, back pain, lap band . Type II diabetic NIDDM, kidnety stones. Miscarriage at age 17years old. History of Any Multi-Drug Resistant Organisms: None Reported Past Surgical History: Appendectomy, Bariatric Surgery, Cardiac Ablation, Cholecystectomy, Heart Catheterization, Hernia Repair, Hysterectomy, Joint Replacement, Orthopedic Surgery, Tonsillectomy, Tubal Ligation Additional Past Surgical History / Comment(s): lithotripsy, lap band with hiatal hernia repair - lap band removed on 06/06/20, shemar foot surgery, shemar shoulder surgery, shemar knee arthroscopy, D&C, shemar carpal tunnel, fx rt arm/humurus repair, oophorectomy, sinus surgery,laparoscopy x 3, left knee replaced, gastric sleeve done 06/06/[address] Jaimes. Past Anesthesia/Blood Transfusion Reactions: Family History of Problems w/ Anesthesia, Postoperative Nausea & Vomiting (PONV) Additional Past Anesthesia/Blood Transfusion Reaction / Comment(s): mother- nausea. Not sure if she has had a blood transfusion. Past Psychological History: Anxiety Smoking Status: Former smoker Past Alcohol Use History: Rare Past Drug Use History: None Reported - Past Family History Mother Family Medical History: Cancer, CVA/TIA Additional Family Medical History / Comment(s): CVA x 5. breast cancer Father Family Medical History: Deep Vein Thrombosis (DVT) Medications and Allergies Home Medications Medication Instructions Recorded Confirmed Type ALPRAZolam [Xanax] 0.25 mg PO HS PRN 05/28/14 04/13/24 History Atenolol [Tenormin] 75 mg PO HS 05/28/14 04/13/24 History Fluticasone Propion/Salmeterol 1 inhalation PO DAILY PRN 05/28/14 04/13/24 History [Advair 250-50 Diskus] Atorvastatin [Lipitor] 20 mg PO QAM 05/04/15 04/13/24 History Albuterol Inhaler [Ventolin Hfa 1 - 2 puff INHALATION RT-Q6H PRN 12/11/17 04/13/24 History Inhaler] Cetirizine HCl [Zyrtec] 5 mg PO HS 12/11/17 04/13/24 History Cholecalciferol [Vitamin D3 (25 5,000 unit PO QAM 12/11/17 04/13/24 History Mcg = 1000 Iu)] DULoxetine HCL [Cymbalta] 60 mg PO HS 12/11/17 04/13/24 History Levothyroxine Sodium [Levo-T] 75 mcg PO QAM 12/11/17 04/13/24 History Baclofen [Lioresal] 10 mg PO TID 03/22/20 04/13/24 History Melatonin [Melatonin Tr] 10 mg PO HS PRN 05/30/20 04/13/24 History Omeprazole 20 mg PO HS 05/30/20 04/13/24 History Temazepam [Restoril] 15 mg PO HS 06/03/20 04/13/24 History Ondansetron Odt [Zofran Odt] 4 mg PO Q8HR PRN #9 tab 06/08/20 04/13/24 Rx HYDROcodone/APAP 7.5-325MG [[place] 1 tab PO Q8H PRN 12/05/20 04/13/24 History 7.5-325] Vitamin C/Biotin [Hair, Skin and 1 tab PO DAILY 12/05/20 04/13/24 History Nails Chew] Actos 45 mg PO QAM 02/27/24 04/13/24 History Vivascale 1 dose PO BID 02/27/24 04/13/24 History Allergies Allergy/AdvReac Type Severity Reaction Status Date / Time iodine Allergy Rash/Hives Verified 05/30/24 17:01 Penicillins Allergy Anaphylaxis Verified 05/30/24 17:01 aspartame AdvReac Unknown Unknown Verified 05/30/24 17:01 metal Allergy Rash/Hives Uncoded 05/30/24 17:01 Physical Exam Vitals: Vital Signs Temp Pulse Resp BP Pulse Ox 05/31/24 04:11 97.6 F 101 H 18 118/81 98 05/31/24 01:00 103 H 18 128/78 96 05/31/24 00:00 110 H 20 102/76 05/30/24 21:01 106 H 18 136/80 97 05/30/24 16:55 98 F 100 18 142/82 100 Intake and Output 05/30/24 05/30/24 05/31/24 14:59 22:59 06:59 Other: Weight 92.079 kg Results CBC & Chem 7: 05/30/24 17:26 05/30/24 17:26 Labs: Abnormal Lab Results - Last 24 Hours (Table) 05/30/24 05/30/24 05/30/24 Range/Units 16:58 17:26 17:26 WBC 2.4 L (3.8-10.6) k/uL RBC 2.87 L (3.80-5.40) m/uL Hgb 8.9 L (11.4-16.0) gm/dL Hct 26.6 L (34.0-46.0) % RDW 19.2 H (11.5-15.5) % Lymphocytes # 0.5 L (1.0-4.8) k/uL APTT 21.5 L (22.0-30.0) sec Sodium (137-145) mmol/L BUN (7-17) mg/dL Glucose (74-99) mg/dL POC Glucose (mg/dL) 145 H (70-110) mg/dL Total Protein (6.3-8.2) g/dL 05/30/24 Range/Units 17:26 WBC (3.8-10.6) k/uL RBC (3.80-5.40) m/uL Hgb (11.4-16.0) gm/dL Hct (34.0-46.0) % RDW (11.5-15.5) % Lymphocytes # (1.0-4.8) k/uL APTT (22.0-30.0) sec Sodium 136 L (137-145) mmol/L BUN 24 H (7-17) mg/dL Glucose 135 H (74-99) mg/dL POC Glucose (mg/dL) (70-110) mg/dL Total Protein 6.0 L (6.3-8.2) g/dL
[2024-05-31] MEDS: ASPIRIN 325 MG TAB PO SCH (09:50)
[2024-05-31 09:56] LABS: Chol/HDL Ratio 5.37 Ratio; LDL Cholesterol,Calculated 93.6 mg/dL (0.0-131.0)
--- NOTE | 2024-05-31 14:28 | P.CNNES ---
History of Present Illness Consult date: 05/31/24 Requesting physician: Remigio Urena Reason for Consult: Aphasia History of Present Illness: This is a telemedicine neurology consultation performed today on 05/31/2024, in collaboration with Rosalind Monge. Patient is a 68-year-old right-handed female, with history of diabetes, breast cancer, tremors, hypertension, hyperlipidemia, came to the hospital yesterday at 4:49 PM, for possible "ALLERGIC reaction to medication, primidone. Patient states that yesterday morning she was fine. At 3:30 PM, while she was driving, she started having some slurred speech. She couldn't tell her friend what she was feeling. She pulled over and let her friend drive her. As she herself sat in the passenger seat. The friend drove her to her house. When she arrived home, the noticed that patient had some right facial droop. She couldn't walk very well. They brought her to the hospital. It took her and a security chief museum to bring her to the ER. Patient had just started taking primidone for tremors. She took her first dose on morning, and did not feel right. She skipped the night dose and then took the second dose on Saturday night, and she came to the hospital on Saturday as above. Vital signs on arrival blood pressure 142/82 pulse rate 100 temperature 98.0. Blood test shows WBC 2.4 hemoglobin 8.9, platelets 204. PT/PTT normal. Sodium 136 potassium 3.6, BUN 24-90 0.98. Troponin negative. CK normal. EKG showed sinus rhythm CT head showed no acute intracranial process. I personally reviewed CT head, agree with the findings. On my review, there is small vessel disease noted. At present patient feels back to baseline. All symptoms have resolved. Patient has history of diabetes for one year. Patient has hypertension, hyperlipidemia, history of SVT. Patient has smoked 4 cigarettes per day for 30 years, quit at age 43 (25 years ago. Denies any alcohol use. Patient has been diagnosed with stage III breast cancer in and of January 2024. For first 3 months, she underwent chemotherapy every week with Keytruda and Taxol. Now she will be starting chemotherapy every 3 weeks 4 cycles. No surgery. Patient also has history of tremors for last 2 years. When she would hold the phone, it would shake. Her dad also has tremors. She was started on primidone as above. She also has fibromyalgia for which she takes baclofen. Home medications include Actos 30 mg, and without losing, Lipitor 20 mg, Abilify 5 mg, vitamin D, primidone 50 mg twice a day, baclofen, Cymbalta 60 mg at bedtime, atenolol. Patient does not take any antiplatelet medication or anticoagulant. Review of Systems All pertinent positive and negative review of systems mentioned this period. Otherwise unremarkable. Past Medical History Past Medical History: Asthma, Cancer, Diabetes Mellitus, Fibromyalgia, GERD/Reflux, Hyperlipidemia, Osteoarthritis (OA), Supraventricular Tachycardia (SVT), Thyroid Disorder Additional Past Medical History / Comment(s): Basil carcinoma. Rt breast cancer- no chemo at this time, no radisation.hx migraines, hx heart murmur and "rapid heart rate", Degenerative Disc Disease, back pain, lap band . Type II diabetic NIDDM, kidnety stones. Miscarriage at age 17years old. History of Any Multi-Drug Resistant Organisms: None Reported Past Surgical History: Appendectomy, Bariatric Surgery, Cardiac Ablation, Cholecystectomy, Heart Catheterization, Hernia Repair, Hysterectomy, Joint Replacement, Orthopedic Surgery, Tonsillectomy, Tubal Ligation Additional Past Surgical History / Comment(s): lithotripsy, lap band with hiatal hernia repair - lap band removed on 06/06/20, shemar foot surgery, shemar shoulder surgery, shemar knee arthroscopy, D&C, shemar carpal tunnel, fx rt arm/humurus repair, oophorectomy, sinus surgery,laparoscopy x 3, left knee replaced, gastric sleeve done 06/06/[address] Jaimes. Past Anesthesia/Blood Transfusion Reactions: Family History of Problems w/ Anesthesia, Postoperative Nausea & Vomiting (PONV) Additional Past Anesthesia/Blood Transfusion Reaction / Comment(s): mother- nausea. Not sure if she has had a blood transfusion. Past Psychological History: Anxiety Smoking Status: Former smoker Past Alcohol Use History: Rare Past Drug Use History: None Reported - Past Family History Mother Family Medical History: Cancer, CVA/TIA Additional Family Medical History / Comment(s): CVA x 5. breast cancer Father Family Medical History: Deep Vein Thrombosis (DVT) Medications and Allergies Home Medications Medication Instructions Recorded Confirmed Type ALPRAZolam [Xanax] 0.25 mg PO HS PRN 05/28/14 05/31/24 History Atenolol [Tenormin] 75 mg PO HS 05/28/14 05/31/24 History Fluticasone Propion/Salmeterol 1 puff INHALATION RT-BID PRN 05/28/14 05/31/24 History [Advair 250-50 Diskus] DULoxetine HCL [Cymbalta] 60 mg PO HS 12/11/17 05/31/24 History Baclofen [Lioresal] 20 mg PO BID 03/22/20 05/31/24 History Temazepam [Restoril] 15 mg PO HS 06/03/20 05/31/24 History HYDROcodone/APAP 7.5-325MG [[place] 1 tab PO BID 12/05/20 05/31/24 History 7.5-325] ARIPiprazole [Abilify] 5 mg PO DAILY 05/31/24 05/31/24 History Acetaminophen Tab [Tylenol Tab] 1,500 mg PO TID PRN 05/31/24 05/31/24 History Atorvastatin [Lipitor] 20 mg PO DAILY 05/31/24 05/31/24 History Cetirizine HCl [Zyrtec] 10 mg PO HS 05/31/24 05/31/24 History Cholecalciferol [Vitamin D3 (125 125 mcg PO DAILY 05/31/24 05/31/24 History Mcg = 5000 Iu)] Levothyroxine Sodium [Synthroid] 75 mcg PO DAILY 05/31/24 05/31/24 History Lidocaine-Prilocaine Cream [Emla 1 applic TOPICAL DAILY PRN 05/31/24 05/31/24 History Cream 2.5%/2.5%] Loperamide HCl [Imodium A-D] 2 - 4 mg PO QID PRN 05/31/24 05/31/24 History Melatonin 15 mg PO HS 05/31/24 05/31/24 History Multivitamins, Thera [Multivitamin 1 tab PO DAILY 05/31/24 05/31/24 History (formulary)] Omeprazole Magnesium [PriLOSEC OTC] 20 mg PO HS 05/31/24 05/31/24 History Ondansetron Odt [Zofran Odt] 4 mg PO QID PRN 05/31/24 05/31/24 History Pioglitazone [Actos] 30 mg PO DAILY 05/31/24 05/31/24 History Primidone [Mysoline] 50 mg PO BID 05/31/24 05/31/24 History hydroCHLOROthiazide 12.5 mg PO DAILY PRN 05/31/24 05/31/24 History Allergies Allergy/AdvReac Type Severity Reaction Status Date / Time iodine Allergy Rash/Hives Verified 05/31/24 08:59 Penicillins Allergy Anaphylaxis Verified 05/31/24 08:59 aspartame AdvReac Unknown Unknown Verified 05/31/24 08:59 metal Allergy Rash/Hives Uncoded 05/31/24 08:59 Physical Examination - Vital Signs Vital Signs: Vital Signs Temp Pulse Resp BP Pulse Ox 05/31/24 12:36 75 14 115/72 96 05/31/24 09:00 91 20 121/66 99 05/31/24 07:23 97.6 F 110 H 20 136/73 100 05/31/24 04:11 97.6 F 101 H 18 118/81 98 05/31/24 01:00 103 H 18 128/78 96 05/31/24 00:00 110 H 20 102/76 05/30/24 21:01 106 H 18 136/80 97 05/30/24 16:55 98 F 100 18 142/82 100 Intake and Output 05/30/24 05/31/24 05/31/24 22:59 06:59 14:59 Other: Weight 92.079 kg Patient is an elderly female, very pleasant, in no acute distress. Patient is alert awake oriented to time place and person. Speech and language functions are normal. Patient can name and repeat very well. No aphasia or dysarthria. Attention, concentration and fund of knowledge is adequate. On cranial nerve examination, pupils are equal, round and reacting to light, visual andrade are full on confrontation, with no neglect on double simultaneous stimulation. Extraocular muscles are intact with no nystagmus. Face is symmetric on active testing, although appears to have slightly flat right nasolabial fold. Her tongue protrudes to the midline. Palatal elevation and sensation normal, hearing and shoulder shrug normal, facial sensation feeling "stronger" on the left side of the face. On muscle strength testing, there is no pronator drift and the strength is normal in arms and legs distally and proximally. Deep tendon reflexes are symmetric 2 at the biceps, 0 at the knees. Sensory to touch she was feeling "stronger" on the left side of the face, but equal in the arms and legs. Cerebellar function showed no ataxia for [id number] testing. No dysdiadochokinesia. No ataxia for [id number] testing on either side. Tone and bulk of muscles normal. Gait deferred.. On general examination, there is no carotid bruit or murmur, S1-S2 audible. Chest is clear on consultation. Abdomen is soft nontender. No organomegaly, bowel sounds present. Peripheral pulses are present. No peripheral edema. Results - Laboratory Findings CBC and BMP: 05/30/24 17:26 05/30/24 17:26 Abnormal Lab Findings: Abnormal Labs 05/30/24 05/30/24 05/30/24 16:58 17:26 17:26 WBC 2.4 L RBC 2.87 L Hgb 8.9 L Hct 26.6 L RDW 19.2 H Lymphocytes # 0.5 L APTT 21.5 L Sodium BUN Glucose POC Glucose (mg/dL) 145 H Total Protein Triglycerides VLDL Cholesterol, Calc HDL Cholesterol 05/30/24 05/30/24 17:26 17:26 WBC RBC Hgb Hct RDW Lymphocytes # APTT Sodium 136 L BUN 24 H Glucose 135 H POC Glucose (mg/dL) Total Protein 6.0 L Triglycerides 293.00 H VLDL Cholesterol, Calc 58.60 H HDL Cholesterol 34.80 L Assessment and Plan Assessment: * Probable TIA manifesting with slurred speech, facial droop and confusion. Symptoms have resolved. * Hypertension * Hyperlipidemia * Diabetes * Breast cancer, currently undergoing chemotherapy * X tobacco use * Essential tremors * History of SVT. * Fibromyalgia Plan: * Patient undergoing workup for TIA. * MRI of the brain without contrast, evaluate for acute CVA * 2-D echo with bubble study to rule out PFO * CTA head and neck showed: No evidence of dissection of the cervical internal carotid arteries or vertebral arteries or any evidence of significant stenosis at the carotid bifurcations. No evidence of high-grade stenosis or intracranial aneurysm. * Fasting a.m. lipid panel cholesterol 187, LDL 93, HDL 34, triglycerides 293. Increase Lipitor to 40 mg daily. Patient was on 20 mg at home. * Hemoglobin A1c * Permissive hypertension for next 24-48 hours * Start aspirin 325 mg daily. Patient was not on any antiplatelet medication at home. * Neuro checks as per protocol. * Telemetry monitoring rule out any arrhythmia * PT, OT, speech therapy * DVT prophylaxis: Heparin 5000 units subcu every 12 hours * Neurology will continue to follow. Thank you for the consult. Time with Patient: Greater than 30
[2024-05-31 19:59] LABS: Glucose,Whole Blood 189 mg/dL (70-110)
[2024-05-31] MEDS: HEPARIN SODIUM,PORCINE 5,000 UNIT/ML 1 ML VIAL SQ SCH (20:52)
[2024-05-31] MEDS: ATORVASTATIN 40 MG TAB PO SCH (20:52)
[2024-06-01 09:24] LABS: ALT 22 U/L (8-44); AST 23 U/L (13-35); Albumin 3.4 g/dL (3.8-4.9); Albumin/Globulin Ratio 1.89 Ratio (1.60-3.17); Alkaline Phosphatase 54 U/L (41-126); Blood Urea Nitrogen 19.1 mg/dL (9.0-27.0); Calcium 8.2 mg/dL (8.7-10.3); Carbon Dioxide 22.9 mmol/L (21.6-31.8); Chloride 110 mmol/L (96-109); Globulin 1.8 g/dL (1.6-3.3); Glucose 104 mg/dL (70-110); Potassium 3.7 mmol/L (3.5-5.5); Sodium 142 mmol/L (135-145); Total Bilirubin 0.5 mg/dL (0.3-1.2); Total Protein 5.2 g/dL (6.2-8.2)
[2024-06-01 09:48] LABS: Basophils # (A) 0.01 X 10*3/uL (0.00-0.10); Basophils % (A) 0.3 %; Eosinophils # (A) 0.01 X 10*3/uL (0.04-0.35); Eosinophils % (A) 0.3 %; HCT 25.5 % (37.2-46.3); HGB 8.2 g/dL (12.0-15.0); Lymphocytes # (A) 1.14 X 10*3/uL (0.90-5.00); MCH 31.7 pg (27.0-32.0); MCHC 32.2 g/dL (32.0-37.0); MCV 98.5 FL (80.0-97.0); Mean Platelet Volume 10.3 FL (9.5-12.2); Monocytes # (A) 0.27 X 10*3/uL (0.20-1.00); Monocytes % (A) 7.8 %; NRBC Per 100 WBC 0.03 X 10*3/uL (0.00-0.01); Neutrophils # (A) 1.99 X 10*3/uL (1.80-7.70); Neutrophils % (A) 57.7 %; Platelet Count 183 X 10*3/uL (140-440); RBC 2.59 X 10*6/uL (4.10-5.20); RDW 21.2 % (11.5-14.5); WBC 3.45 X 10*3/uL (4.50-10.00)
[2024-06-01] MEDS ORDERED: LORazepam 2 MG/ML INJ IV PRN (13:07)
[2024-06-01] MEDS ORDERED: HYDROcodone/APAP 7.5-325MG 1 EACH TAB PO PRN (13:08)
[2024-06-01] MEDS ORDERED: ALPRAZolam 0.25 MG TAB PO PRN (13:08)
[2024-06-01] MEDS ORDERED: ACETAMINOPHEN TAB 500 MG TAB PO PRN (13:08)
[2024-06-01] MEDS ORDERED: hydroCHLOROthiazide 12.5 MG CAP PO PRN (13:08)
[2024-06-01] MEDS ORDERED: LOPERAMIDE 2 MG CAP PO PRN (13:08)
[2024-06-01] MEDS ORDERED: SYMBICORT 80-4.5 MCG INHALER INHALATION PRN (13:08)
[2024-06-01] MEDS ORDERED: ONDANSETRON ODT 4 MG TAB PO PRN (13:08)
[2024-06-01] MEDS: LORazepam 1 MG/0.5 ML VIAL IV PRN (14:09)
--- NOTE | 2024-06-01 14:53 | MR ---
EXAMINATION TYPE: MR brain wo con DATE OF EXAM: 06/01/2024 2:39 PM COMPARISON: 02/14/2024 CLINICAL INDICATION: Female, 68 years old with history of Expressive aphasia, expressive aphasia TECHNIQUE: Multi planar multi sequence imaging of the brain. FINDINGS: The ventricles, basal cisterns and sulci overlying the cerebral convexities are mildly enlarged. There is evidence of mild periventricular white matter ischemic demyelination. Remote deep white matter insults are also noted. Diffusion-weighted imaging demonstrates multiple bilateral foci of increased signal on diffusion-weig hted imaging with one focus noted left cerebellum and multiple small foci noted in the supratentorial region most prominently in the region of the centrum semioval bilaterally with 8-10 noted on the lef t and approximately 4 on the right. These are concerning for embolic process. There is no evidence for midline shift or mass effect. Acute intracranial hemorrhage or extra-axial collection is not evident. The paranasal sinuses and mastoid air cells are well-aerated. IMPRESSION: Diffusion-weighted imaging demonstrates multiple bilateral foci of increased signal on diffusion-weig hted imaging with one focus noted left cerebellum and multiple small foci noted in the supratentorial region most prominently in the region of the centrum semioval bilaterally with 8-10 noted on the lef t and approximately 4 on the right. These are concerning for embolic process. [facility], , 06/01/2024 2:50 PM
[2024-06-01] MEDS: ARIPiprazole 5 MG TAB PO SCH (15:07)
[2024-06-01] MEDS: MULTIVITAMINS, THERA 1 EACH TAB PO SCH (15:07)
[2024-06-01] MEDS: CHOLECALCIFEROL 125 MCG (5000 IU) TABLET PO SCH (15:08)
[2024-06-01] MEDS: atenoloL 50 MG TAB PO SCH (15:13)
--- NOTE | 2024-06-01 18:09 | CA ---
Transthoracic Echo Report Name: Nela Caba Age: 68 Gender: F : 1955 Exam Date: 06/01/2024 08:15 Exam Location: [facility] Ht (in): 60 Wt (lb): 203 Ordering Physician: Morales Galvez MD Attending/Referring Phys: Film Touch Up Inspector Tonie Simental RDCS Procedure CPT: Indications: Slurred speech, CVA Cardiac Hx: Technical Quality: Good Contrast 1: Agitated Saline Total Dose (mL): 9 Contrast 2: Total Dose (mL): MEASUREMENTS (Male / Female) Normal Values 2D ECHO LV Diastolic Diameter PLAX 4.2 cm 4.2 - 5.9 / 3.9 - 5.3 cm LV Systolic Diameter PLAX 2.8 cm IVS Diastolic Thickness 1.1 cm 0.6 - 1.0 / 0.6 - 0.9 cm LVPW Diastolic Thickness 1.1 cm 0.6 - 1.0 / 0.6 - 0.9 cm LV Relative Wall Thickness 0.5 RV Internal Dim ED PLAX 3.2 cm LA Systolic Diameter LX 3.5 cm 3.0 - 4.0 / 2.7 - 3.8 cm LV Diastolic Volume MOD 4C 82.3 cm??? LV Systolic Volume MOD 4C 34.9 cm??? LV Ejection Fraction MOD 4C 57.6 % LV Cardiac Index MOD 4C 2689.3 cm???/min???m??? LV Diastolic Length 4C 8.6 cm LV Systolic Length 4C 7.0 cm LV Diastolic Volume MOD 2C 77.1 cm??? LV Systolic Volume MOD 2C 27.4 cm??? LV Ejection Fraction MOD 2C 64.4 % LV Cardiac Index MOD 2C 2819.6 cm???/min???m??? LV Diastolic Length 2C 8.1 cm LV Systolic Length 2C 6.6 cm LA Volume 80.4 cm??? 18 - 58 / 22 - 52 cm??? LA Volume Index 39.7 cm???/m??? 16 - 28 cm???/m??? M-MODE Aortic Root Diameter MM 3.2 cm DOPPLER AV Peak Velocity 194.9 cm/s AV Peak Gradient 15.2 mmHg MV Area PHT 4.3 cm??? MR Peak Velocity 510.8 cm/s MR Peak Gradient 104.4 mmHg Mitral E Point Velocity 138.7 cm/s Mitral A Point Velocity 165.0 cm/s Mitral E to A Ratio 0.8 MV Deceleration Time 177.1 ms TR Peak Velocity 270.8 cm/s TR Peak Gradient 29.3 mmHg Right Ventricular Systolic Press 32.4 mmHg FINDINGS Left Ventricle Left ventricular ejection fraction is estimated at 55-60 %. Left ventricular cavity size normal. Mildly increased septal wall thickness. Mildly increased posterior wall thickness. Normal left ventricular wall motion. Right Ventricle Normal right ventricular size and function. Right Atrium Normal right atrial size. No right atrial thrombus or mass seen. Negative agitated saline bubble study for right to left shunt. Left Atrium Moderately increased left atrial volume. Mildly increased left atrial area. Mitral Valve Mitral valve thickened. [id number] mitral regurgitation. No evidence for mitral valve prolapse. No mitral stenosis. Aortic Valve Trileaflet aortic valve. No aortic valve stenosis or regurgitation. Tricuspid Valve Structurally normal tricuspid valve. Mild tricuspid regurgitation. Pulmonic Valve Structurally normal pulmonic valve. No pulmonic regurgitation. Pericardium No pericardial effusion. Aorta Normal size aortic root and proximal ascending aorta. CONCLUSIONS Diagnosis TIA/CVA Preserved LV size and function Mildly thickened pericardium without effusion Left atrial enlargement No [id number] interatrial shunt Previewed by: Dr. Darrell Mckeon MD (Electronically Signed) Final Date: 01 June 2024 18:08
[2024-06-01] MEDS: ATORVASTATIN 20 MG TAB PO SCH (18:32)
[2024-06-01] MEDS: PRIMIDONE 50 MG TAB PO SCH (20:21)
[2024-06-01] MEDS: DULoxetine HCL 60 MG CAPSULE.DR PO SCH (20:23)
[2024-06-01] MEDS: TEMAZEPAM 15 MG CAP PO SCH (20:23)
[2024-06-01] MEDS: CLOPIDOGREL 75 MG TAB PO SCH (20:23)
[2024-06-01] MEDS: PANTOPRAZOLE 40 MG TABLET PO SCH (20:23)
[2024-06-01] MEDS: LORATADINE 10 MG TAB PO SCH (20:24)
[2024-06-01] MEDS: BACLOFEN 10 MG TAB PO SCH (20:24)
[2024-06-01] MEDS: MELATONIN 5 MG TABLET PO SCH (20:24)
--- NOTE | 2024-06-02 05:49 | P.PN ---
Subjective Progress Note Date: 06/01/24 History of present illness; 68-year-old lady with past medical history significant for SVT, breast cancer presented the ER because of slurred speech and difficulty in expressing words. Patient apparently was driving in a car with her friend and the friend noted that the patient was not acting her usual self, she noticed that the patient had hard time expressing words and there was some slurring of the speech as well. There was no evidence of any facial droop at that time. There was no weakness of any extremity. Patient felt very lethargic and weak. stated that he did notice some facial droop. There was no complaint of jerking of any extremity. Patient did not lose consciousness. There was no current chest pain or shortness of breath. There was no complaint of orthopnea or PND. There was no complaint of shortness of breath at that time. There was no episode of diaphoresis . Because of slurred speech, patient brought to the ER Initial lab work done in the ER showed WBC 2.4, hemoglobin 8.9, platelet count 204, sodium 130s, potassium 3.6, BUN 24, creatinine 0.98, glucose 135 troponin 0.012 EKG done in the ER showed heart rate of89 , no ST segment elevation or depression seen, no T-wave inversions seen. CT head done showed no acute intracranial process CTA head and neck done showed no significant stenosis, aneurysm or thrombus in the intracranial circulation Patient admitted to internal medicine service 06/01/2024 Patient seen in follow-up today with neurology following scheduled undergo MRI of the brain which is currently pending. 2D echo bubble study also pending at this time and awaiting cardiology to read the echo. Patient did have some slurring noted and undergoing TIA versus CVA workup. Patient is currently afebrile with no reports of chest pain or shortness of breath. Home medications reviewed and resumed as appropriate. Patient did have a drop in hemoglobin and will obtain stool occult, white blood count is mildly improved at 2.5. Awaiting lipid panel as well and will likely start low-dose statin therapy. Review of systems: Constitutional: No reports of fatigue, fever, or chills Cardiovascular: No reports of chest pain or palpitations Respiratory: No reports of shortness of breath or cough GI: No reports of nausea, vomiting, or diarrhea : No reports of dysuria or retention Neurovascular:reports of generalized weakness All medications have been reviewed PHYSICAL EXAMINATION: GENERAL: The patient is alert and oriented x3. Well developed, appears older than stated age, obese HEENT: Pupils are round and equally reacting to light. EOMI. No scleral icterus. No conjunctival pallor. Normocephalic, atraumatic. No pharyngeal erythema. No thyromegaly. CARDIOVASCULAR: S1 and S2 muffled PULMONARY: Diminished breath sounds bilaterally otherwise chest is clear to auscultation, no wheezing or crackles. ABDOMEN: Soft, obese, nontender, nondistended, normoactive bowel sounds. No palpable organomegaly. MUSCULOSKELETAL: No joint swelling or deformity. EXTREMITIES: No cyanosis, clubbing, or pedal edema. NEUROLOGICAL: Gross neurological examination did not reveal any focal deficits. Diffusely weak SKIN: No rashes. Assessment: Strokelike symptoms with some facial drooping and slurring of speech, concerns for TIA versus CVA MRI pending for today History of breast cancer, on chemotherapy, last session was last week History of TIA History of hyperlipidemia history of hypothyroidism Obesity with a BMI 39.6 GI prophylaxis DVT prophylaxis Full code Plan: Patient being followed with neurology on consultation scheduled to undergo MRI of the brain which is pending today. 2D echo bubble is also ordered and has been done awaiting cardiology read Patient denies any further symptoms at this time and will await official MRI report and discussed with neurology regarding discharge planning Home medications reviewed and resumed as appropriate Patient did have a mild drop in hemoglobin and will follow-up on repeat labs, s tool occult ordered We will continue to monitor and discuss further with neurology regarding dischar ge planning Due to multiple complex medical issues, overall prognosis is guarded The impression and plan of care has been dictated by Sofia Harrison, Nurse Practitioner as directed. Dr. Jimmy MD I have performed a history and examination and MDM of this patient, discussed the same with the dictator, and agree with the dictator's assessment and plan as written ,documented as a scribe. Based on total visit time, I have performed more than 50% of the visit. Objective - Vital Signs Vital signs: Vital Signs Temp 97.7 F 06/01/24 07:00 Pulse 104 H 06/01/24 07:00 Resp 16 06/01/24 07:00 BP 132/83 06/01/24 07:00 Pulse Ox 100 06/01/24 07:00 FiO2 Intake & Output 05/31/24 06/01/24 06/01/24 18:59 06:59 18:59 Weight 92.079 kg Other: # Voids 2 1 # Bowel Movements 1 - Labs CBC & Chem 7: 06/01/24 05:41 06/01/24 05:41 Labs: Abnormal Lab Results - Last 24 Hours (Table) 05/30/24 05/31/24 06/01/24 Range/Units 17:26 19:56 05:41 WBC 3.45 L (4.50-10.00) X 10*3/uL RBC 2.59 L (4.10-5.20) X 10*6/uL Hgb 8.2 L (12.0-15.0) g/dL Hct 25.5 L (37.2-46.3) % MCV 98.5 H (80.0-97.0) FL RDW 21.2 H (11.5-14.5) % Eosinophils # 0.01 L (0.04-0.35) X 10*3/uL NRBC/100 WBC Diff 0.03 H (0.00-0.01) X 10*3/uL Chloride (96-109) mmol/L POC Glucose (mg/dL) 189 H (70-110) mg/dL Hemoglobin A1c 6.6 H (<=6.0) % Calcium (8.7-10.3) mg/dL Total Protein (6.2-8.2) g/dL Albumin (3.8-4.9) g/dL 06/01/24 Range/Units 05:41 WBC (4.50-10.00) X 10*3/uL RBC (4.10-5.20) X 10*6/uL Hgb (12.0-15.0) g/dL Hct (37.2-46.3) % MCV (80.0-97.0) FL RDW (11.5-14.5) % Eosinophils # (0.04-0.35) X 10*3/uL NRBC/100 WBC Diff (0.00-0.01) X 10*3/uL Chloride 110 H (96-109) mmol/L POC Glucose (mg/dL) (70-110) mg/dL Hemoglobin A1c (<=6.0) % Calcium 8.2 L (8.7-10.3) mg/dL Total Protein 5.2 L (6.2-8.2) g/dL Albumin 3.4 L (3.8-4.9) g/dL
[2024-06-02] MEDS: LEVOTHYROXINE 75 MCG TAB PO SCH (06:15)
--- NOTE | 2024-06-02 08:06 | P.PN ---
Subjective Progress Note Date: 06/01/24 Patient was seen for a follow-up. Patient believes that she is back to normal. Offers no new complaints. Patient's was also present by the bedside. Objective - Vital Signs Vital signs: Vital Signs Temp 97.7 F 06/01/24 14:57 Pulse 104 H 06/01/24 14:57 Resp 16 06/01/24 14:57 BP 142/81 06/01/24 14:57 Pulse Ox 100 06/01/24 14:57 FiO2 Intake & Output 05/31/24 06/01/24 06/01/24 18:59 06:59 18:59 Weight 92.079 kg Other: # Voids 2 2 # Bowel Movements 1 - Exam Patient's mental status, speech and language functions are normal. Cranial nerves are normal. Face is symmetric. No droop. Visual andrade are full. On muscle strength testing there is no pronator drift and the strength is normal in arms and legs. Patient is tremulous for [id number] testing bilaterally but no obvious ataxia. Sensory to touch is equal with no neglect. - Labs CBC & Chem 7: 06/01/24 05:41 06/01/24 05:41 Labs: Abnormal Lab Results - Last 24 Hours (Table) 05/30/24 05/31/24 06/01/24 Range/Units 17:26 19:56 05:41 WBC 3.45 L (4.50-10.00) X 10*3/uL RBC 2.59 L (4.10-5.20) X 10*6/uL Hgb 8.2 L (12.0-15.0) g/dL Hct 25.5 L (37.2-46.3) % MCV 98.5 H (80.0-97.0) FL RDW 21.2 H (11.5-14.5) % Eosinophils # 0.01 L (0.04-0.35) X 10*3/uL NRBC/100 WBC Diff 0.03 H (0.00-0.01) X 10*3/uL Chloride (96-109) mmol/L POC Glucose (mg/dL) 189 H (70-110) mg/dL Hemoglobin A1c 6.6 H (<=6.0) % Calcium (8.7-10.3) mg/dL Total Protein (6.2-8.2) g/dL Albumin (3.8-4.9) g/dL 06/01/24 Range/Units 05:41 WBC (4.50-10.00) X 10*3/uL RBC (4.10-5.20) X 10*6/uL Hgb (12.0-15.0) g/dL Hct (37.2-46.3) % MCV (80.0-97.0) FL RDW (11.5-14.5) % Eosinophils # (0.04-0.35) X 10*3/uL NRBC/100 WBC Diff (0.00-0.01) X 10*3/uL Chloride 110 H (96-109) mmol/L POC Glucose (mg/dL) (70-110) mg/dL Hemoglobin A1c (<=6.0) % Calcium 8.2 L (8.7-10.3) mg/dL Total Protein 5.2 L (6.2-8.2) g/dL Albumin 3.4 L (3.8-4.9) g/dL Assessment and Plan Assessment: * Probable TIA manifesting with slurred speech, facial droop and confusion. Symptoms have resolved. MRI of the brain revealed multifocal areas of ische starla infarction. Likely embolic in nature. * Hypertension * Hyperlipidemia * Diabetes * Breast cancer, currently undergoing chemotherapy * X tobacco use * Essential tremors * History of SVT. * Fibromyalgia Plan: * Patient underwent workup for stroke/TIA. * MRI of the brain without contrast, revealed diffusion weighted imaging demonstrates multiple bilateral foci of increased signal, with one focus noted left cerebellum and multiple small foci noted in the supratentorial region, most prominently in the region of the centrum semiovale bilaterally with 8-10 noted on the left and approximately 4 on the right. These are concerning for embolic process. I personally reviewed MRI, and agree with the findings. * 2-D echo with bubble study revealed normal LVEF 55-60%. Mildly increased septal wall thickness. Normal right atrial size. Negative agitated saline bubble study for [id number] shunt. Left atrium moderately increased in volume. Mild to moderate MR. * CTA head and neck showed: No evidence of dissection of the cervical internal carotid arteries or vertebral arteries or any evidence of significant stenosis at the carotid bifurcations. No evidence of high-grade stenosis or intracranial aneurysm. * Fasting a.m. lipid panel cholesterol 187, LDL 93, HDL 34, triglycerides 293. Increase Lipitor to 40 mg daily. Patient was on Lipitor 20 mg at home. * Hemoglobin A1c 6.6. Diabetes is well controlled. * Optimize blood pressure to normotensive levels. * Patient was not on any antiplatelet medication at home. Patient started on dual antiplatelet therapy for 21 days with aspirin 81 mg and Plavix 75 mg. After 21 days, stop Plavix and continue aspirin indefinitely. * Recommended event monitoring for 30 days, rule out advancement atrial fibrillation. Report to be sent to patient's roller billet mill Dr. Bailey * Telemetry monitoring rule out any arrhythmia * PT, OT, speech therapy * DVT prophylaxis: Heparin 5000 units subcu every 12 hours * Neurologically clear for discharge. Discussed with patient's nurse.
[2024-06-02 08:22] LABS: Basophils # (A) 0.02 X 10*3/uL (0.00-0.10); Basophils % (A) 0.7 %; Eosinophils # (A) 0.02 X 10*3/uL (0.04-0.35); Eosinophils % (A) 0.7 %; HCT 23.5 % (37.2-46.3); HGB 7.7 g/dL (12.0-15.0); Lymphocytes # (A) 1.13 X 10*3/uL (0.90-5.00); Lymphocytes % (A) 39.9 %; MCH 32.2 pg (27.0-32.0); MCHC 32.8 g/dL (32.0-37.0); MCV 98.3 FL (80.0-97.0); Mean Platelet Volume 10.2 FL (9.5-12.2); Monocytes # (A) 0.31 X 10*3/uL (0.20-1.00); NRBC Per 100 WBC 0.04 X 10*3/uL (0.00-0.01); Neutrophils # (A) 1.26 X 10*3/uL (1.80-7.70); Neutrophils % (A) 44.5 %; Platelet Count 169 X 10*3/uL (140-440); RBC 2.39 X 10*6/uL (4.10-5.20); RDW 21.2 % (11.5-14.5); WBC 2.83 X 10*3/uL (4.50-10.00)
[2024-06-02 08:28] VITALS: BP 112/76; PULSE 68; RESP 18; TEMP 97.8
[2024-06-02 08:37] LABS: ALT 21 U/L (8-44); AST 21 U/L (13-35); Albumin 3.1 g/dL (3.8-4.9); Albumin/Globulin Ratio 1.82 Ratio (1.60-3.17); Alkaline Phosphatase 51 U/L (41-126); Blood Urea Nitrogen 15.1 mg/dL (9.0-27.0); Calcium 8.2 mg/dL (8.7-10.3); Carbon Dioxide 23.5 mmol/L (21.6-31.8); Chloride 111 mmol/L (96-109); Globulin 1.7 g/dL (1.6-3.3); Glucose 90 mg/dL (70-110); Potassium 3.8 mmol/L (3.5-5.5); Sodium 143 mmol/L (135-145); Total Bilirubin 0.3 mg/dL (0.3-1.2); Total Protein 4.8 g/dL (6.2-8.2)
[2024-06-02] MEDS: ASPIRIN 81 MG PO SCH (09:39)
[2024-06-02] MEDS: PIOGLITAZONE 30 MG TAB PO SCH (09:40)
== END 2024-06-02 16:03 | disposition home or self-care (01) | DRG 69 ==
LOC: EC 16:49 → 6NMEDSUR 22:44 → OBSVTOIN 06-01 14:36
PROVIDERS: ADMIT Hospitalist; ATTEND Hospitalist
DX: G45.9 Transient cerebral ischemic attack, unspecified (principal); R47.01 Aphasia; E11.9 Type 2 diabetes mellitus without complications; E03.9 Hypothyroidism, unspecified; J45.909 Unspecified asthma, uncomplicated; E66.9 Obesity, unspecified; I10 Essential (primary) hypertension; E78.5 Hyperlipidemia, unspecified; F41.9 Anxiety disorder, unspecified; G25.0 Essential tremor; M79.7 Fibromyalgia; R29.810 Facial weakness; Z68.39 Body mass index [BMI] 39.0-39.9, adult; Z79.84 Long term (current) use of oral hypoglycemic drugs; Z79.890 Hormone replacement therapy; Z79.899 Other long term (current) drug therapy; Z86.73 Personal history of transient ischemic attack (TIA), and cerebral infarction without residual deficits; Z87.891 Personal history of nicotine dependence; Z90.710 Acquired absence of both cervix and uterus; Z88.0 Allergy status to penicillin; Z91.041 Radiographic dye allergy status; Z86.79 Personal history of other diseases of the circulatory system; M19.90 Unspecified osteoarthritis, unspecified site; Z87.442 Personal history of urinary calculi; Z85.3 Personal history of malignant neoplasm of breast
CPT/HCPCS: 36415; 70450; 70496; 70498; 70551; 80053; 80061; 82550; 83036; 84443; 84484; 85025; 85610; 85730; 93005; 93270; 93306; 96361; 96374; 96375; 99285

== ENCOUNTER → 2024-06-18 | Outpatient (CLI) | payer MEDICARE, OTHER ==
[2024-06-18 10:56] VITALS: BP 99/63; PULSE 95; RESP 17; TEMP 99.1
--- NOTE | 2024-06-18 11:27 | P.PN ---
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 She was last seen on 04-13-24. She had a PET scan on 02-14-24 which showed right breast up-take and suspected lymphatic involvement of rhe right axillary, right low neck, and right internal mammary nodes. MRI of the brain no mets. MRI of the breast extensive malignancy of the right breast 12 by 10 by 9 cm. diffuse involvement of the skin, and right axillary, and intrapectoral nodes. Skin biopsy on 02-13-24 dermal involvement with cancer. note Dr. Shepard reviewed. 02-21-24; curative intent carboplatin/taxol/ketruda for 4 cycles she has had 5 treatments so far, (IV treatments one time a week, about 2 1/2 hour for all three) she has two more months of these treatments until May 27 and then followed by adriamycin/cytoxin/ketruda; PET scan 02-14-24 was personally reviewed with Dr. Linda from radiology after last visit. We did not see anything of concern in the left breast, the disease appears to be centered in the right breast port placed for chemotherapy She has noted the right breast is not as firm, she is tolerating the treatment well port a cath placed 03-03-[address] Shepard 05-29-24; patient completed carboplatin/Taxol/Keytruda componet of treatment. She will now have Adriamycin/Cytoxin/IO componet. PET scan to be repeated. She was in the hospital secondary to ministrokes on May 30 and her treatment has not yet started. She is now wearing a heart monitor. She had mini strokes on May 30 and her speech is slower and she is drooling. She is seeing a neurologist. Her chemotherapy has been delayed. Her repeat PET scan was on May 25. The lump in her breast has gotten smaller, and the node in the axilla is no longer palpable. Family history: Mother: breast cancer paternal aunt: breast cancer 3 cousins on paternal side: breast cancer nephew: gastorintestional cancer Hormonal History: menarche: 14 M1, age at : 19, breast fed: no menopause: 45, hysterectomy took one ovary and then that was removed also Surgery: Hysterectomy Bilateral oophorectomy right arm tonsil appy bilateral knee replacement sinus surgery 3 laps tubal heart cath carpel tunnel bilateral lap band gallbladder toe left foot Medical History: minni stroker back pain arthritis SVT tremors Social History: nicotine: none alcohol: none drugs: none ROS: HEENT: sores in nose and throat dry Lungs: asthma Cardiac: as above, SVT GI: none : as above Musculoskeletal: Arthritis, back pain Objective - Vital Signs Vital signs: Vital Signs Temp 99.1 F 06/18/24 10:54 Pulse 95 06/18/24 10:54 Resp 17 06/18/24 10:54 BP 99/63 06/18/24 10:54 Pulse Ox 95 06/18/24 10:54 FiO2 Intake & Output 06/17/24 06/18/24 06/18/24 18:59 06:59 18:59 Weight 92.533 kg - Constitutional General appearance: Present: cooperative - EENT Eyes: Present: EOMI ENT: Present: hearing grossly normal - Neck Neck: Present: normal ROM - Respiratory Respiratory: bilateral: CTA - Cardiovascular Rhythm: regular Heart sounds: normal: S1, S2 - Integumentary Integumentary: Present: normal turgor - Musculoskeletal Musculoskeletal: Present: gait normal - Psychiatric Psychiatric: Present: A&O x's 3, appropriate affect, intact judgment & insight - Additional findings Additional findings: Breast examination: Right breast remains swollen but less so and less erythema than previously Palpation: Right breast: Multi positional mass occupying the central portion of the breast has decreased in size, the area of erythema has also decreased in size the fi rmness of the breast has improved Right axilla: Previous node which was palpable in the right axilla is no longer palpable Left breast: Multi positional exam no dominant masses or nodules of concern Left axilla: No adenopathy of concern Assessment and Plan Assessment: Impression: Invasive ductal carcinoma right breast/dermal involvement/consistent with i nflammatory carcinoma/PET scan positive regional disease, no evidence of brain, bone, or visceral involvement another PET scan scheduled for June 25 will complete chemotherapy end of July cardiac workup for mini storkes greater than 30 minutes spent with patient and her reviewing chart, examining patient, explaining treatment options Plan: Follow-up with medical oncology appointment, neoadjuvant chemotherapy Potential surgery in the future Follow-up in 1 months The patient would like to have a bilateral mastectomy with bilateral reconstruction. However secondary to the nature of the inflammatory cancer on the right side I feel like reconstruction on that side may be difficult. She will be reevaluated in 1 month. I would recommend representing her case at tumor board. Follow-up sooner any questions or concerns CC: Dr. Marcus
== END ==
LOC: WWCWWP 10:32
PROVIDERS: ATTEND Surgery
DX: C50.911 Malignant neoplasm of unspecified site of right female breast (principal); Z88.0 Allergy status to penicillin; Z91.048 Other nonmedicinal substance allergy status; Z91.02 Food additives allergy status; Z91.041 Radiographic dye allergy status

== ENCOUNTER → 2024-06-25 | Outpatient (CLI) | payer MEDICARE, OTHER ==
--- NOTE | 2024-06-28 00:02 | PE ---
EXAMINATION TYPE: PET CT fusion skull to thigh DATE OF EXAM: 06/25/2024 CLINICAL HISTORY: Right-sided breast cancer currently undergoing chemotherapy. TECHNIQUE: Following the intravenous administration of 10.33 mCi of F-18 FDG, whole body images are performed from the skull base to the midthigh. Images are reviewed on the computer in the coronal, axial, and sagittal planes. Reconstructed rotating images are created on independent workstation and reviewed on the computer. A non-contrast CT is performed in conjunction with the PET scan. Blood g lucose level equals 190 COMPARISON: Prior PET/CT February 14, 2024. FINDINGS: SKULL BASE AND NECK: No areas abnormal hypermetabolic uptake. CHEST, MEDIASTINUM, AND HILAR REGION: Persistent abnormal skin thickening of the right breast. No per sistent areas of abnormal hypermetabolic uptake after treatment in the right breast or axilla. Marked improvement in size of right axillary adenopathy now measuring 1.8 x 1.3 cm axial image 64 versus 4. 0 x 3.4 cm prior study. No new areas of suspicious abnormal hypermetabolic uptake. New mild uptake in left posterior upper thoracic paraspinal muscle is presumed inflammatory. ABDOMEN AND PELVIS: Normal excretion is redemonstrated. No new areas of abnormal hypermetabolic uptak e. OSSEOUS STRUCTURES: No new areas of abnormal hypermetabolic uptake. OTHER CT: There is new Left subclavian Mediport catheter terminating in SVC. Persistent moderate to s evere three-vessel coronary artery calcification. Persisting cardiomegaly. Persistent surgical change s from gastric sleeve. Cholecystectomy clips are redemonstrated. Persistent small nonobstructing bila teral renal calculi. Uterus is surgically absent. IMPRESSION: Complete positive treatment response in the right breast neoplasm and right-sided axillar y and intramammary adenopathy. No new areas of abnormal hypermetabolic uptake noted. [facility], , 06/28/2024 12:00 AM
== END | disposition home or self-care (01) ==
LOC: RADPETMAIN 08:50
PROVIDERS: ATTEND Surgery
DX: C50.811 Malignant neoplasm of overlapping sites of right female breast (principal); R59.9 Enlarged lymph nodes, unspecified
CPT/HCPCS: 78815; A9552

== ENCOUNTER → 2024-09-17 | Outpatient (CLI) | payer MEDICARE, OTHER ==
[2024-09-17 15:08] VITALS: BP 121/78; PULSE 80; RESP 17; TEMP 98
--- NOTE | 2024-09-17 15:26 | P.PN ---
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 She was last seen on 04-13-24. She had a PET scan on 02-14-24 which showed right breast up-take and suspected lymphatic involvement of rhe right axillary, right low neck, and right internal mammary nodes. MRI of the brain no mets. MRI of the breast extensive malignancy of the right breast 12 by 10 by 9 cm. diffuse involvement of the skin, and right axillary, and intrapectoral nodes. Skin biopsy on 02-13-24 dermal involvement with cancer. note Dr. Shepard reviewed. 02-21-24; curative intent carboplatin/taxol/ketruda for 4 cycles she has had 5 treatments so far, (IV treatments one time a week, about 2 1/2 hour for all three) she has two more months of these treatments until May 27 and then followed by adriamycin/cytoxin/ketruda; PET scan 02-14-24 was personally reviewed with Dr. Linda from radiology after last visit. We did not see anything of concern in the left breast, the disease appears to be centered in the right breast port placed for chemotherapy She has noted the right breast is not as firm, she is tolerating the treatment well port a cath placed 03-03-[address] Shepard 05-29-24; patient completed carboplatin/Taxol/Keytruda componet of treatment. She will now have Adriamycin/Cytoxin/IO componet. PET scan to be repeated. She was in the hospital secondary to ministrokes on May 30 and her treatment has not yet started. She is now wearing a heart monitor. She had mini strokes on May 30 and her speech is slower and she is drooling. She is seeing a neurologist. Her chemotherapy has been delayed. Her repeat PET scan was on May 25. The lump in her breast has gotten smaller, and the node in the axilla is no longer palpable. 07-30-24 Miriam is a 68 year old last seen on 06-18-24. She has a right breast invasive ductal cancer; invasive poorly differentiated grade 3 tripple (-). She has completed carboplatin/Taxol/Keytruda on 05-27-24. She is now on laurie mycin/cytoxan/keytruda . Her last PET scan was on 06-25-24 and showed resolution in the breast and nodes. [place] still has axillary adenopathy. At this time she will have two more treatments of chemotherapy. She will complete the chemotherapy on August 26. 09-17-24 Miriam is a 69 year old last seen on 07-30-24. She has a right breast invasive ductal cancer; invasive poorly differentiated grade 3 tripple (-). She has completed carboplatin/Taxol/Keytruda on 05-27-24. She is now on adriamycin/cytoxan/keytruda completing 4 cycles on 08-25-24. She is getting keytruda every three weeks until the end of February, given IV Her last PET scan was on 06-25-24 and showed resolution in the breast and nodes. She still has axillary adenopathy. Her last CBC was on 09-03-24; WBC: 2.3, Hgb: 9.5, platelets 31.2, deidre has blood work scheduled for the She was holding her aspirin. Case presented at tumor board on 08-03-24. Plan on surgery bilateral mastectomy, SNB and needle loc of known (+) node on the right side. Left message on patients answering machine. She is to follow up after completes her chemotherapy. Family history: Mother: breast cancer paternal aunt: breast cancer 3 cousins on paternal side: breast cancer nephew: gastorintestional cancer Hormonal History: menarche: 14 M1, age at : 19, breast fed: no menopause: 45, hysterectomy took one ovary and then that was removed also Surgery: Hysterectomy Bilateral oophorectomy right arm tonsil appy bilateral knee replacement sinus surgery 3 laps tubal heart cath carpel tunnel bilateral lap band gallbladder toe left foot Medical History: minni stroker back pain arthritis SVT tremors Social History: nicotine: none alcohol: none drugs: none ROS: HEENT: sores in nose and throat dry Lungs: asthma Cardiac: as above, SVT GI: none : as above Musculoskeletal: Arthritis, back pain Objective - Vital Signs Vital signs: Vital Signs Temp 98 F 07/17/25 15:06 Pulse 80 09/17/24 15:06 Resp 17 09/17/24 15:06 BP 121/78 09/17/24 15:06 Pulse Ox 100 09/17/24 15:06 FiO2 Intake & Output 09/16/24 09/17/24 09/17/24 18:59 06:59 18:59 Weight 84.822 kg - Constitutional General appearance: Present: cooperative - EENT Eyes: Present: EOMI ENT: Present: hearing grossly normal - Neck Neck: Present: normal ROM - Respiratory Respiratory: bilateral: CTA - Cardiovascular Rhythm: regular Heart sounds: normal: S1, S2 - Integumentary Integumentary: Present: normal turgor - Musculoskeletal Musculoskeletal: Present: gait normal - Psychiatric Psychiatric: Present: A&O x's 3, appropriate affect, intact judgment & insight - Additional findings Additional findings: Breast examination: Right breast remains swollen but less so and less erythema than previously Palpation: Right breast: Multi positional exam mass occupying the central portion of the breast has decreased in size, the area of erythema has also decreased in size the firmness of the breast has improved Right axilla: Previous node which was palpable in the right axilla is no longer palpable Left breast: Multi positional exam no dominant masses or nodules of concern Left axilla: No adenopathy of concern Assessment and Plan Assessment: Impression: Invasive ductal carcinoma right breast/dermal involvement/consistent with inflammatory carcinoma/PET scan positive regional disease, no evidence of brain, bone, or visceral involvement another PET scan scheduled for June 25; complete + treatment response in the right breast, no new areas of abnormal uptake on Keytruda cardiac workup for [facility] Plan: Bilateral mastectomy with a right sentinel node biopsy, dual localization of sentinel node, needle localization of prior positive node in the right axilla with resection of that node, possible axillary node dissection clearance Dr. Marcus Risk and benefits of the procedure discussed with the patient and her . Risk include but are not limited to bleeding, infection, reaction to the anesthetic. The risk of axillary surgery includes but is not limited to bleeding, infection, reaction to the anesthetic. There is a possibility of injury to the thoracodorsal or long thoracic nerves decree sensation to the inner arm, possibility of injury to the intercostal brachial nerves, possibility of lymphedema. They understand and wish to proceed. We have discussed reconstruction and she has declined. CC: Dr. Marcus
== END ==
LOC: WWCWWP 14:52
PROVIDERS: ATTEND Surgery
DX: C50.911 Malignant neoplasm of unspecified site of right female breast (principal); Z88.0 Allergy status to penicillin; Z91.041 Radiographic dye allergy status; Z88.6 Allergy status to analgesic agent; Z91.048 Other nonmedicinal substance allergy status; Z87.891 Personal history of nicotine dependence